=== PATIENT | male | born 1940 | race Caucasian/White ===

== ENCOUNTER 2016-07-12 21:45 | Emergency (ER) | payer MEDICARE ==
--- NOTE | 2016-07-12 22:27 | UC ---
Respiratory Complaint HPI - HPI Summary HPI Summary: 5 days of fever and cough >102 this evening. Saw PCP yesterday dx as "viral illness" tonight when fever returned spoke to the on provider who advised patient to get a cxr. denies n/v/d - History of Current Complaint Chief Complaint: UCRespiratory Stated Complaint: COUGH, AND FEVER Time Seen by Provider: 07/12/16 22:26 Hx Obtained From: Patient Onset/Duration: Sudden Onset, Lasting Days - 5, Still Present Timing: Constant Severity Initially: Moderate Severity Currently: Moderate Pain Intensity: 6 Pain Scale Used: 0-10 Numeric - 6 Character: Cough: Productive Aggravating Factors: Deep Breaths Alleviating Factors: Nothing Associated Signs And Symptoms: Positive: Fever, Chills, URI, Nasal Congestion - Allergies/Home Medications Allergies/Adverse Reactions: Allergies Allergy/AdvReac Type Severity Reaction Status Date / Time Sulfa Drugs Allergy Intermediate Rash Verified 07/12/16 22:03 Quinapril [From Accupril] Allergy Unknown Verified 07/12/16 22:03 Reaction Details Temazepam Allergy Unknown Verified 07/12/16 22:03 Reaction Details Atorvastatin [From Lipitor] AdvReac Severe Creatinine Verified 07/12/16 22:03 Levels Abnormal Home Medications: Home Medications Aspirin TAB* [Aspirin 325 MG TAB*] 650 mg PO PRN 07/12/16 [History] PMH/Surg Hx/FS Hx/Imm Hx Previously Healthy: No - CLL Endocrine History Of: Reports: Diabetes - CONTROL WITH MEDICATIONS, TYPE 2, Thyroid Disease - HYPOTHYROID Cardiovascular History Of: Reports: Hypertension - CONTROL WITH MEDS Denies: Congestive Heart Failure Respiratory History Of: Reports: Asthma - new DX summer 2012, UNSURE IF IT IS TRUE ASTHMA, Bronchitis, Pneumonia GI/ History Of: Reports: Kidney Stones - HX OF, Renal Disease - STONES 5 YEARS AGO Neurological History Of: Reports: Migraine - "mini migraine" - Surgical History Surgical History: Yes Surgery Procedure, Year, and Place: BILATERA EYE SURGERY TO REPAIR MACULAR TEAR, . BILATELRAL CATARACT EXTRACTION WITH IOL IMPLANT. 02/2006 CYSTOSCOPY, EXCISION AND FULGERATION OF BLADDER LESION WITH RIGHT URETERAL STENT PLACEMENT, [facility]. 03/2006 ESWL RIGHT WITH RIGHT STENT REMOVAL, [facility]. 06/2006 RIGHT RENAL CALCULI ESWL, [facility]. 08/2006 ESWL LEFT RENAL CALCULI, [facility] - Family History Family History: No reported cardiovascular issues in family lineage - Social History Occupation: Retired Lives: With Family Alcohol Use: Daily Alcohol Amount: 1/DAY Substance Use Type: None Smoking Status (MU): Former Smoker Type: Cigarettes Amount Used/How Often: 2 PPD FOR ABOUT 20 YEARS Have You Smoked in the Last Year: No When Did the Patient Quit Smoking/Using Tobacco: 1970 - Immunization History Most Recent Influenza Vaccination: 01/2013 Most Recent Tetanus Shot: 2003 Most Recent Pneumonia Vaccination: 2009 Review of Systems Constitutional: Fever, Chills, Fatigue Skin: Negative Eyes: Negative ENT: Nasal Discharge Respiratory: Cough Cardiovascular: Negative Gastrointestinal: Negative Genitourinary: Negative Motor: Negative Neurovascular: Negative Musculoskeletal: Arthralgia, Myalgia Neurological: Negative Psychological: Negative All Other Systems Reviewed And Are Negative: Yes Physical Exam Triage Information Reviewed: Yes Appearance: No Pain Distress, Well-Nourished, Ill-Appearing - mild Vital Signs: Initial Vital Signs Temp 96.3 F 07/12/16 21:56 Pulse 95 07/12/16 21:56 Resp 20 07/12/16 21:56 BP 133/71 07/12/16 21:56 Pulse Ox 93 07/12/16 21:56 Vital Signs Reviewed: Yes Eye Exam: Normal ENT Exam: Normal ENT: Positive: Normal ENT inspection, Hearing grossly normal, Pharynx normal, Nasal congestion, TMs normal. Negative: Nasal drainage, Tonsillar swelling, Tonsillar exudate, Trismus, Muffled/hoarse voice Dental Exam: Normal Neck exam: Normal Neck: Positive: Supple, Nontender, No Lymphadenopathy Respiratory Exam: Normal Respiratory: Positive: Chest non-tender, Lungs clear, Normal breath sounds, No respiratory distress. Negative: Respiratory distress, Decreased breath sounds Cardiovascular Exam: Normal Cardiovascular: Positive: RRR, No Murmur, Pulses Normal, Brisk Capillary Refill Musculoskeletal Exam: Normal Musculoskeletal: Positive: Strength Intact, ROM Intact, No Edema Neurological Exam: Normal Neurological: Positive: Alert, Muscle Tone Normal Psychological Exam: Normal Psychological: Positive: Normal Response To Family Skin Exam: Normal UC Diagnostic Evaluation - Laboratory O2 Sat by Pulse Oximetry: 93 Respiratory Course/Dx - Course Course Of Treatment: transfer to [facility] [place] - Differential Dx/Diagnosis Differential Diagnosis/HQI/PQRI: Bronchitis, Influenza, Lower Resp Infection Provider Diagnoses: febrile illness - Physician Notification/Consults Discussed Patient Care With: Dr. Szymanski Time Discussed With Above Provider: 22:30 Instructed by Provider To: Transfer Discharge - Discharge Plan Condition: Fair Disposition: AGAINST MEDICAL ADVICE Referrals: Porsha Hawkins MD [Primary Care Provider] -
[2016-07-12 22:39] VITALS: BP 124/65
== END 2016-07-12 22:35 | disposition left against medical advice (07) ==
LOC: UCEAST 21:45
DX: R50.9 Fever, unspecified (principal); E11.9 Type 2 diabetes mellitus without complications; E03.9 Hypothyroidism, unspecified; I10 Essential (primary) hypertension; G43.909 Migraine, unspecified, not intractable, without status migrainosus; J45.909 Unspecified asthma, uncomplicated; Z87.442 Personal history of urinary calculi; Z88.2 Allergy status to sulfonamides; Z87.891 Personal history of nicotine dependence
CPT/HCPCS: 99212; G0463

== ENCOUNTER 2016-07-12 22:55 | Observation (INO) | payer MEDICARE ==
[2016-07-13 01:40] LABS: Hematocrit 40 % (42-52); Hemoglobin 13.7 g/dl (14.0-18.0); Mean Corpuscular HGB Conc 34 g/dl (31-36); Mean Corpuscular Hemoglobin 33 pg (27-31); Mean Corpuscular Volume 98 fL (80-94); Mean Platelet Volume 9 um3 (7.4-10.4); Red Blood Count 4.13 10^6/ul (4.0-5.4); Red Cell Distribution Width 13 % (10.5-15); White Blood Count 9.5 10^3/ul (3.5-10.8)
[2016-07-13 01:51] LABS: BUN/Creatinine Ratio 15.5 (8-20); Calcium 9.1 mg/dL (8.6-10.3); EGFR Non-African American 75.5 (>60); Globulin 2.6 g/dL (2-4); Potassium 3.5 mmol/L (3.5-5.0); Total Bilirubin 1.2 mg/dL (0.2-1.0); Total Protein 6.6 g/dL (6.4-8.9)
[2016-07-13 01:54] LABS: Troponin I 0.01 ng/mL (<0.04)
[2016-07-13 02:45] LABS: Urine Bilirubin Negative (Negative); Urine Glucose Negative (Negative); Urine Nitrite Negative (Negative)
[2016-07-13] MEDS ORDERED: cefTRIAXone(*) 1 GM in NS 0.9% 50 ML* 50 ML IVPB ONE (03:40)
[2016-07-13] MEDS ORDERED: Albuterol/Ipratropium NEB.SOL* Albuterol 2.5 MG/Ipratropium 0.5 MG 3 ML INH ONE (03:40)
[2016-07-13] MEDS ORDERED: Azithromycin IV(*) 500 MG in NS 0.9% 250 ML* 250 ML IVPB ONE (03:40)
[2016-07-13] MEDS ORDERED: Albuterol HFA INHALER* 8 gm MDI INH PRN (04:44)
[2016-07-13] MEDS ORDERED: Dextrose 50% Syringe 50 ML* 25 GM/50 ML SYRINGE IV PUSH PRN (04:47)
[2016-07-13] MEDS: Levothyroxine TAB* 125 MCG TAB PO SCH (06:20)
[2016-07-13] MEDS: Heparin VIAL(*) 5000 UNITS/ML VIAL (FIVE THOUSAND) SUBCUT SCH ×3 (06:20→20:57)
--- NOTE | 2016-07-13 07:28 | RAD ---
INDICATION: Cough. COMPARISON: Comparison is made with prior chest x-ray study from July 04, 2014. TECHNIQUE: A portable view of the chest was obtained. FINDINGS: Cardiac and mediastinal contours appear to be within normal limits. There is a small infiltrate present at the medial right lung base. No pleural effusion is seen. IMPRESSION: SMALL RIGHT BASILAR INFILTRATE.
[2016-07-13] MEDS ORDERED: Fluticasone NASAL SPRAY 50MCG* 16 gm SPRAY BTL BOTH NARES SCH ×2 (09:00→21:00)
[2016-07-13] MEDS ORDERED: RANITIDINE HCL PO SCH (09:00)
[2016-07-13] MEDS: Insulin LISPRO* 1 UNITS UNIT SUBCUT SCH ×4 (10:02→20:04)
[2016-07-13] MEDS: Vitamin THERAPEUTIC TAB PO SCH (10:04)
[2016-07-13] MEDS: ZINC GLUCONATE 50 MG PO SCH (10:32)
[2016-07-13] MEDS: FOLIC ACID 800 MCG PO SCH (10:33)
[2016-07-13] MEDS: Allopurinol TAB* 300 MG PO SCH (10:37)
--- NOTE | 2016-07-13 12:05 | PN ---
Subjective Date of Service: 07/13/16 Interval History: Feels much better--less cough, less sputum, no more chills/sweats. No new c/o. Objective Active Medications: Albuterol (Ventolin Hfa Inhaler*) 2 puff INH Q4H PRN PRN Reason: SOB/WHEEZING Allopurinol (Zyloprim Tab*) 300 mg PO QAM [facility] Last Admin: 07/13/16 10:37 Dose: 300 mg Benzonatate (Tessalon Cap*) 200 mg PO TID PRN PRN Reason: COUGH Cetirizine HCl (Zyrtec*) 10 mg PO QPM PRN PRN Reason: ALLERGY SYMPTOMS Dextrose (D50w Syringe 50 Ml*) 12.5 gm IV PUSH .FOR FS < 60 - SS PRN PRN Reason: FS < 60 Fluticasone Propionate (Flonase Nasal [place] 50mcg*) 2 spray BOTH NARES DAILY [facility] Last Admin: 07/13/16 11:16 Dose: Not Given Heparin Sodium (Porcine) (Heparin Vial(*)) 5,000 units SUBCUT Q8HR [facility] Last Admin: 07/13/16 06:20 Dose: 5,000 units Ceftriaxone Sodium 1,000 mg/ (Sodium Chloride) 50 mls @ 200 mls/hr IVPB Q24H [facility] Azithromycin 500 mg/ Sodium (Chloride) 250 mls @ 250 mls/hr IVPB Q24H [facility] Insulin Glargine (Lantus(*)) 25 units SUBCUT BEDTIME [facility] Insulin Human Lispro (Humalog*) 0 units SUBCUT ACHS [facility] PRN Reason: Protocol Last Admin: 07/13/16 11:49 Dose: Not Given Levothyroxine Sodium (Synthroid Tab*) 125 mcg PO DAILY@0600 [facility] Last Admin: 07/13/16 06:20 Dose: 125 mcg Multivitamins ([facility]ran Tab*) [facility] [place] Last Admin: 07/13/16 10:04 Dose: 1 tab Folic Acid [Folic (Acid] 800 Mcg) 800 mcg PO [facility] Last Admin: 07/13/16 10:33 Dose: Not Given Non-Formulary Medication (Ranitidine Hcl) 10 mg PO BID [facility] Last Admin: 07/13/16 10:33 Dose: Not Given Zinc Gluconate [Zinc (] 50 Mg) 50 mg PO [facility] Last Admin: 07/13/16 10:32 Dose: Not Given Pravastatin Sodium (Pravachol (Nf)) 80 mg PO BEDTIME [facility] Valsartan (Diovan Tab*) 80 mg PO BEDTIME [facility] Vital Signs 07/13/16 07/13/16 07/13/16 05:12 05:30 05:55 Temperature 101.3 F 98.7 F Pulse Rate 95 93 93 Respiratory 15 16 Rate Blood Pressure 119/55 120/60 (mmHg) O2 Sat by Pulse 91 94 Oximetry 07/13/16 08:20 Temperature 99.1 F Pulse Rate 86 Respiratory 16 Rate Blood Pressure 110/60 (mmHg) O2 Sat by Pulse 93 Oximetry Oxygen Devices in Use Now: None Appearance: Alert, partly up in bed. In good spirits. Looks comfortable. Eyes: No Scleral Icterus Ears/Nose/Mouth/Throat: Clear Oropharnyx, Mucous Membranes Moist Neck: NL Appearance and Movements; NL JVP, No Thyroid Enlargement, Masses Respiratory: Symmetrical Chest Expansion and Respiratory Effort, Clear to Auscultation, Clear to Percussion Extremities: No Edema, No Clubbing, Cyanosis, - Skin: No Rash or Ulcers, No Nodules or Sclerosis, - Neurological: Alert and Oriented x 3, NL Sensation Result Diagrams: 07/13/16 01:04 07/13/16 01:04 Additional Lab and Data: Lab Results 07/13/16 07/13/16 07/13/16 Range/Units 01:04 01:04 01:04 WBC 9.5 (3.5-10.8) 10^3/ul RBC 4.13 (4.0-5.4) 10^6/ul Hgb 13.7 L (14.0-18.0) g/dl Hct 40 L (42-52) % MCV 98 H (80-94) fL MCH 33 H (27-31) pg MCHC 34 (31-36) g/dl RDW 13 (10.5-15) % Plt Count 156 (150-450) 10^3/ul MPV 9 (7.4-10.4) um3 Neut % (Auto) 66.4 (38-83) % Lymph % (Auto) 20.8 L (25-47) % [place] % (Auto) 10.3 H (1-9) % Eos % (Auto) 2.3 (0-6) % Baso % (Auto) 0.2 (0-2) % Absolute Neuts (auto) 6.3 (1.5-7.7) 10^3/ul Absolute Lymphs (auto) 2.0 (1.0-4.8) 10^3/ul Absolute Monos (auto) 1.0 H (0-0.8) 10^3/ul Absolute Eos (auto) 0.2 (0-0.6) 10^3/ul Absolute Basos (auto) 0 (0-0.2) 10^3/ul Absolute Nucleated RBC 0 10^3/ul Nucleated RBC % 0 INR (Anticoag Therapy) 1.21 H (0.89-1.11) APTT 30.7 (26.0-36.3) seconds Sodium 134 (133-145) mmol/L Potassium 3.5 (3.5-5.0) mmol/L Chloride 102 (101-111) mmol/L Carbon Dioxide 25 (22-32) mmol/L Anion Gap 7 (2-11) mmol/L BUN 15 (6-24) mg/dL Creatinine 0.97 (0.67-1.17) mg/dL Est GFR ( Amer) 97.0 (>60) Est GFR (Non-Af Amer) 75.5 (>60) BUN/Creatinine Ratio 15.5 (8-20) Glucose 146 H (70-100) mg/dL Lactic Acid (0.5-2.0) mmol/L Calcium 9.1 (8.6-10.3) mg/dL Total Bilirubin 1.20 H (0.2-1.0) mg/dL AST 38 (13-39) U/L ALT 56 H (7-52) U/L Alkaline Phosphatase 80 (34-104) U/L Troponin I 0.01 (<0.04) ng/mL Total Protein 6.6 (6.4-8.9) g/dL Albumin 4.0 (3.2-5.2) g/dL Globulin 2.6 (2-4) g/dL Albumin/Globulin Ratio 1.5 (1-3) Urine Color Urine Appearance Urine pH (5-9) Ur Specific [place] (1.010-1.030) Urine Protein (Negative) Urine Ketones (Negative) Urine Blood (Negative) Urine Nitrate (Negative) Urine Bilirubin (Negative) Urine Urobilinogen (Negative) Ur Leukocyte Esterase (Negative) Urine Glucose (Negative) 07/13/16 07/13/16 Range/Units 01:04 02:15 WBC (3.5-10.8) 10^3/ul RBC (4.0-5.4) 10^6/ul Hgb (14.0-18.0) g/dl Hct (42-52) % MCV (80-94) fL MCH (27-31) pg MCHC (31-36) g/dl RDW (10.5-15) % Plt Count (150-450) 10^3/ul MPV (7.4-10.4) um3 Neut % (Auto) (38-83) % Lymph % (Auto) (25-47) % [place] % (Auto) (1-9) % Eos % (Auto) (0-6) % Baso % (Auto) (0-2) % Absolute Neuts (auto) (1.5-7.7) 10^3/ul Absolute Lymphs (auto) (1.0-4.8) 10^3/ul Absolute Monos (auto) (0-0.8) 10^3/ul Absolute Eos (auto) (0-0.6) 10^3/ul Absolute Basos (auto) (0-0.2) 10^3/ul Absolute Nucleated RBC 10^3/ul Nucleated RBC % INR (Anticoag Therapy) (0.89-1.11) APTT (26.0-36.3) seconds Sodium (133-145) mmol/L Potassium (3.5-5.0) mmol/L Chloride (101-111) mmol/L Carbon Dioxide (22-32) mmol/L Anion Gap (2-11) mmol/L BUN (6-24) mg/dL Creatinine (0.67-1.17) mg/dL Est GFR ( Amer) (>60) Est GFR (Non-Af Amer) (>60) BUN/Creatinine Ratio (8-20) Glucose (70-100) mg/dL Lactic Acid 0.7 (0.5-2.0) mmol/L Calcium (8.6-10.3) mg/dL Total Bilirubin (0.2-1.0) mg/dL AST (13-39) U/L ALT (7-52) U/L Alkaline Phosphatase (34-104) U/L Troponin I (<0.04) ng/mL Total Protein (6.4-8.9) g/dL Albumin (3.2-5.2) g/dL Globulin (2-4) g/dL Albumin/Globulin Ratio (1-3) Urine Color Yellow Urine Appearance Clear Urine pH 6.0 (5-9) Ur Specific [place] 1.005 L (1.010-1.030) Urine Protein Negative (Negative) Urine Ketones Negative (Negative) Urine Blood Negative (Negative) Urine Nitrate Negative (Negative) Urine Bilirubin Negative (Negative) Urine Urobilinogen Negative (Negative) Ur Leukocyte Esterase Negative (Negative) Urine Glucose Negative (Negative) Assess/Plan/Problems-Billing Assessment: - Patient Problems (1) Pneumonia Current Visit: Yes Status: Acute Code(s): J18.9 - PNEUMONIA, UNSPECIFIED ORGANISM SNOMED Code(s): 645526304 Comment: Apperars to be responding to azitthromycin. Consider d/c home 07/14. (2) CLL (chronic lymphocytic leukemia) Current Visit: Yes Status: Acute Code(s): C91.10 - CHRONIC LYMPHOCYTIC LEUK OF B-CELL TYPE NOT ACHIEVE REMIS SNOMED Code(s): 89682128 Comment: Had chemo 5 yrs ago, regular fup with Dr. Mcclelland. CBC OK. (3) HTN (hypertension) Current Visit: Yes Status: Acute Code(s): I10 - ESSENTIAL (PRIMARY) HYPERTENSION SNOMED Code(s): 90161946 Comment: Reduce valsartan to 40 mg hs. (4) Gout Current Visit: Yes Status: Acute Code(s): M10.9 - GOUT, UNSPECIFIED SNOMED Code(s): 80205463 Comment: Continue allopurinol. (5) Hypothyroid Current Visit: Yes Status: Acute Code(s): E03.9 - HYPOTHYROIDISM, UNSPECIFIED SNOMED Code(s): 01495656 Comment: TSH addon requested. (6) Diabetes Current Visit: Yes Status: Acute Code(s): E11.9 - TYPE 2 DIABETES MELLITUS WITHOUT COMPLICATIONS SNOMED Code(s): 79365271 Comment: Resume metformin. No IV dye given or planned.
[2016-07-13 13:01] LABS: TSH (Thyroid Stimulating Horm) 0.52 mcIU/mL (0.34-5.60)
[2016-07-13] MEDS: metFORMIN* 500 MG TAB PO SCH (13:29)
[2016-07-13] MEDS: Benzonatate CAP* 100 MG PO PRN ×2 (17:16→20:08)
--- NOTE | 2016-07-13 17:35 | HP ---
HISTORY AND PHYSICAL: DATE OF ADMISSION: CHIEF COMPLAINT: Fever. HISTORY OF PRESENT ILLNESS: The patient is a 75-year-old gentleman presents to [facility] with a chief complaint that he was running a high temperature today. He felt febrile, took his temperature and it was 102.3. He called Dr. Hawkins's office and Dr. Snyder told him to go to urgent care. Before he got there, they were closed and so he came to this hospital. He has had a cough productive of thick phlegm all week long. In fact, he went to Dr. Hawkins and saw her yesterday but she did not think much was going on as his lungs sounded clear to her. He did take aspirin today at 8 o'clock, which helped his fever subside, which made him feel better. He has also been taking Claritin during the day and Tylenol PM to sleep at night. In the ED, the patient was afebrile but his chest x-ray was consistent with possible bilateral pneumonia. He also apparently desaturated on ambulation. PAST MEDICAL HISTORY: Significant for CLL for which the white count is within normal limits at this time, status post ESWL for bilateral renal calculi in the past, hypertension, hypothyroidism, obstructive sleep apnea on CPAP, history of splenomegaly, history of asthma, diabetes mellitus. CURRENT MEDICATIONS: At home, 1. Lantus insulin 25 units subcu at bedtime. 2. Albuterol 2 puffs every 4 hours as needed. 3. Zinc 50 mg in the morning. 4. Ranitidine 10 mg twice day. 5. Pravastatin 80 mg at bedtime. 6. Folic acid 800 mcg in the morning. 7. Valsartan 80 mg at bedtime. 8. Flonase nasal spray 2 sprays inhaled daily. 9. Metformin ER 500 mg in the morning. 10. Levothyroxine 125 mcg daily. 11. Loratadine 10 mg daily. 12. Multivitamin 1 tablet daily. 13. Allopurinol 300 mg daily. 14. Aspirin 650 mg as needed. ALLERGIES: He has allergy/adverse reactions to SULFA DRUGS, QUINAPRIL, TEMAZEPAM, and ATORVASTATIN. FAMILY HISTORY: Reviewed and noncontributory. SOCIAL HISTORY: Quit tobacco 40 years ago. Glass of wine at night. No recreational drug use. He is a retired business area manager. He is a . He has significant other and he has 2 children, one of them is his daughter Jennifer who is his healthcare proxy. REVIEW OF SYSTEMS: A 14-point review of systems was completed with the patient. All pertinent positives and negatives are in the history of present illness. PHYSICAL EXAMINATION VITAL SIGNS: Temperature 96.3, heart rate 85 beats per minute, respiratory rate 18 breaths per minute, pulse ox 96%, blood pressure 120/69. HEENT: Normocephalic, atraumatic. Pupils are equal, round, and reactive to light. Moist mucous membranes. NECK: Supple. No JVD, bruits, palpable thyroid or lymphadenopathy. CHEST: Clear to auscultation and percussion bilaterally. CARDIOVASCULAR: S1, S2 appreciated. ABDOMEN: Positive bowel sounds in all 4 quadrants. Soft, nontender, nondistended. EXTREMITIES: No cyanosis, clubbing or edema. +2 pulses bilaterally. NEURO: Alert and oriented x3. Moves all extremities. SKIN: No rashes or abnormalities. LABORATORY AND DIAGNOSTIC DATA: White count 9.5, hemoglobin 13.7, hematocrit 40, platelets 156. Neutrophils are 66.4, monos 10.3, eosinophils 20.8. INR 1.21. Sodium 134, potassium 3.5, chloride 102, CO2 25, BUN 15, creatinine 0.97, glucose 146. Urinalysis is unremarkable. EKG shows normal sinus rhythm at 82 beats per minute, left axis deviation, left anterior hemiblock. No acute ST or T-wave changes. Chest x-ray shows preliminary findings of bilateral pneumonia, at least right middle and right lower lobe. ASSESSMENT AND PLAN: 1. Right lower lobe possibly bilateral pneumonia. Place the patient on Rocephin 1 g IV daily and Zithromax 500 mg IV daily. Check sputum C and S, urine for legionella and pneumococcal antigen. Tescamilaon Diana p.r.n. for cough. I anticipate the patient should improve rather quickly and being able to be discharged home soon. 2. Chronic lymphoid leukemia. Currently quiescent with normal white count. 3. Diabetes mellitus, stable. Continue his Lantus insulin, fingersticks with sliding scale insulin. 4. Hypothyroidism, stable. Continue Synthroid. 5. Hypertension, adequate control. Continue current regimen. 6. FEN. Consistent carb diet. 7. DVT prophylaxis. Heparin subcutaneously. 8. Finally, the patient is a full code. TIME SPENT: Over 75 minutes was spent on this H and P, more than 40 minutes of which was spent in direct [id number] contact with the patient in evaluation, physical exam, counseling, and coordination of care. CC: Dr. Hawkins* [id number]/CPS #: [id number]
[2016-07-13] MEDS ORDERED: Cetirizine* 10 MG TAB PO PRN (18:00)
[2016-07-13] MEDS ORDERED: Acetaminophen TAB* 325 MG PO PRN (18:26)
[2016-07-13] MEDS ORDERED: Insulin GLARGINE(*) 1 UNITS UNIT SUBCUT SCH (21:00)
[2016-07-13] MEDS ORDERED: Valsartan TAB* 40 MG PO SCH (21:00)
[2016-07-13] MEDS ORDERED: CMCS: Pravastatin (NF) 20 MG TAB PO SCH (21:00)
[2016-07-13] MEDS ORDERED: Valsartan TAB* 80 MG PO SCH (21:00)
[2016-07-14] MEDS ORDERED: cefTRIAXone VIAL(*) 1,000 MG in NS 0.9% 50 ML* 50 ML IVPB SCH (04:30)
[2016-07-14] MEDS ORDERED: Azithromycin IV(*) 500 MG in NS 0.9% 250 ML* 250 ML IVPB SCH (05:00)
[2016-07-14] MEDS: Levothyroxine TAB* 125 MCG TAB PO SCH (05:36)
[2016-07-14] MEDS: Heparin VIAL(*) 5000 UNITS/ML VIAL (FIVE THOUSAND) SUBCUT SCH (05:36)
[2016-07-14] MEDS: Insulin LISPRO* 1 UNITS UNIT SUBCUT SCH ×2 (08:33→12:26)
[2016-07-14] MEDS: Vitamin THERAPEUTIC TAB PO SCH (09:08)
[2016-07-14] MEDS: metFORMIN* 500 MG TAB PO SCH (09:08)
[2016-07-14] MEDS: Benzonatate CAP* 100 MG PO PRN (09:09)
[2016-07-14] MEDS: Allopurinol TAB* 300 MG PO SCH (09:09)
[2016-07-14] MEDS: ZINC GLUCONATE 50 MG PO SCH (09:10)
[2016-07-14] MEDS: FOLIC ACID 800 MCG PO SCH (09:10)
[2016-07-14 11:27] VITALS: BP 106/60
--- NOTE | 2016-07-14 11:41 | DCNOTE ---
Subjective Date of Service: 07/14/16 Interval History: Feels much better. He had a chill and a sweat yesterday when he was febrile. Small amt sputum production. Very anxious to go home. Objective Active Medications: Acetaminophen (Tylenol Tab*) 650 mg PO Q4H PRN PRN Reason: FEVER/PAIN Last Admin: 07/13/16 18:32 Dose: 650 mg Albuterol (Ventolin Hfa Inhaler*) 2 puff INH Q4H PRN PRN Reason: SOB/WHEEZING Allopurinol (Zyloprim Tab*) 300 mg PO QAM [facility] Last Admin: 07/14/16 09:09 Dose: 300 mg Benzonatate (Tessalon Cap*) 200 mg PO TID PRN PRN Reason: COUGH Last Admin: 07/14/16 09:09 Dose: 200 mg Cetirizine HCl (Zyrtec*) 10 mg PO QPM PRN PRN Reason: ALLERGY SYMPTOMS Dextrose (D50w Syringe 50 Ml*) 12.5 gm IV PUSH .FOR FS < 60 - SS PRN PRN Reason: FS < 60 Fluticasone Propionate (Flonase Nasal [place] 50mcg*) 2 spray BOTH NARES BEDTIME [facility] Last Admin: 07/13/16 20:04 Dose: 2 spray Guaifenesin (Robitussin*) 10 ml PO QID [facility] Heparin Sodium (Porcine) (Heparin Vial(*)) 5,000 units SUBCUT Q8HR [facility] Last Admin: 07/14/16 05:36 Dose: 5,000 units Ceftriaxone Sodium 1,000 mg/ (Sodium Chloride) 50 mls @ 200 mls/hr IVPB Q24H [facility] Last Admin: 07/14/16 04:03 Dose: 200 mls/hr Azithromycin 500 mg/ Sodium (Chloride) 250 mls @ 250 mls/hr IVPB Q24H [facility] Last Admin: 07/14/16 04:39 Dose: 250 mls/hr Insulin Glargine (Lantus(*)) 25 units SUBCUT BEDTIME [facility] Last Admin: 07/13/16 20:03 Dose: 25 unit Insulin Human Lispro (Humalog*) 0 units SUBCUT ACHS [facility] PRN Reason: Protocol Last Admin: 07/14/16 08:33 Dose: Not Given Levothyroxine Sodium (Synthroid Tab*) 125 mcg PO DAILY@0600 [facility] Last Admin: 07/14/16 05:36 Dose: 125 mcg Metformin HCl (Glucophage*) 500 mg PO DAILY [facility] Last Admin: 07/14/16 09:08 Dose: 500 mg Multivitamins (Theragran Tab*) 1 tab PO [facility] Last Admin: 07/14/16 09:08 Dose: 1 tab Folic Acid [Folic (Acid] 800 Mcg) 800 mcg PO [facility] Last Admin: 07/14/16 09:10 Dose: Not Given Zinc Gluconate [Zinc (] 50 Mg) 50 mg PO [facility] Last Admin: 07/14/16 09:10 Dose: Not Given Pravastatin Sodium (Pravachol (Nf)) 80 mg PO BEDTIME [facility] Last Admin: 07/13/16 20:04 Dose: 80 mg Vital Signs 07/13/16 07/13/16 07/13/16 16:06 18:35 19:44 Temperature 101.3 F 99.7 F 98.2 F Pulse Rate 89 88 78 Respiratory 18 20 Rate Blood Pressure 128/55 99/46 (mmHg) O2 Sat by Pulse 95 95 93 Oximetry 07/13/16 07/13/16 07/13/16 19:59 20:00 23:36 Temperature 98.4 F Pulse Rate 75 Respiratory 20 16 Rate Blood Pressure 108/53 (mmHg) O2 Sat by Pulse 93 99 Oximetry 07/14/16 07/14/16 07/14/16 00:00 03:43 07:21 Temperature 98.1 F 98.7 F Pulse Rate 84 76 Respiratory 16 17 Rate Blood Pressure 122/59 89/57 (mmHg) O2 Sat by Pulse 99 93 93 Oximetry 07/14/16 07/14/16 07/14/16 07:30 08:00 08:25 Temperature Pulse Rate 71 Respiratory 17 Rate Blood Pressure 94/48 101/60 (mmHg) O2 Sat by Pulse 93 Oximetry 07/14/16 11:23 Temperature Pulse Rate 72 Respiratory Rate Blood Pressure 106/60 (mmHg) O2 Sat by Pulse 95 Oximetry Oxygen Devices in Use Now: None Appearance: Alert, partly up in bed. In good spirits. Looks well. No cough during my visit. Eyes: No Scleral Icterus Ears/Nose/Mouth/Throat: Clear Oropharnyx, Mucous Membranes Moist Neck: NL Appearance and Movements; NL JVP, No Thyroid Enlargement, Masses Respiratory: Symmetrical Chest Expansion and Respiratory Effort, Clear to Auscultation, Clear to Percussion Cardiovascular: NL Sounds; No Murmurs; No JVD, RRR, No Edema, - Extremities: No Edema, No Clubbing, Cyanosis, - Skin: No Rash or Ulcers, No Nodules or Sclerosis, - Neurological: Alert and Oriented x 3, NL Sensation Result Diagrams: 07/13/16 01:04 07/13/16 01:04 Additional Lab and Data: Lab Results 07/13/16 07/13/16 07/13/16 Range/Units 01:04 01:04 01:04 WBC 9.5 (3.5-10.8) 10^3/ul RBC 4.13 (4.0-5.4) 10^6/ul Hgb 13.7 L (14.0-18.0) g/dl Hct 40 L (42-52) % MCV 98 H (80-94) fL MCH 33 H (27-31) pg MCHC 34 (31-36) g/dl RDW 13 (10.5-15) % Plt Count 156 (150-450) 10^3/ul MPV 9 (7.4-10.4) um3 Neut % (Auto) 66.4 (38-83) % Lymph % (Auto) 20.8 L (25-47) % [place] % (Auto) 10.3 H (1-9) % Eos % (Auto) 2.3 (0-6) % Baso % (Auto) 0.2 (0-2) % Absolute Neuts (auto) 6.3 (1.5-7.7) 10^3/ul Absolute Lymphs (auto) 2.0 (1.0-4.8) 10^3/ul Absolute Monos (auto) 1.0 H (0-0.8) 10^3/ul Absolute Eos (auto) 0.2 (0-0.6) 10^3/ul Absolute Basos (auto) 0 (0-0.2) 10^3/ul Absolute Nucleated RBC 0 10^3/ul Nucleated RBC % 0 INR (Anticoag Therapy) 1.21 H (0.89-1.11) APTT 30.7 (26.0-36.3) seconds Sodium 134 (133-145) mmol/L Potassium 3.5 (3.5-5.0) mmol/L Chloride 102 (101-111) mmol/L Carbon Dioxide 25 (22-32) mmol/L Anion Gap 7 (2-11) mmol/L BUN 15 (6-24) mg/dL Creatinine 0.97 (0.67-1.17) mg/dL Est GFR ( Amer) 97.0 (>60) Est GFR (Non-Af Amer) 75.5 (>60) BUN/Creatinine Ratio 15.5 (8-20) Glucose 146 H (70-100) mg/dL Lactic Acid (0.5-2.0) mmol/L Calcium 9.1 (8.6-10.3) mg/dL Total Bilirubin 1.20 H (0.2-1.0) mg/dL AST 38 (13-39) U/L ALT 56 H (7-52) U/L Alkaline Phosphatase 80 (34-104) U/L Troponin I 0.01 (<0.04) ng/mL Total Protein 6.6 (6.4-8.9) g/dL Albumin 4.0 (3.2-5.2) g/dL Globulin 2.6 (2-4) g/dL Albumin/Globulin Ratio 1.5 (1-3) Urine Color Urine Appearance Urine pH (5-9) Ur Specific [place] (1.010-1.030) Urine Protein (Negative) Urine Ketones (Negative) Urine Blood (Negative) Urine Nitrate (Negative) Urine Bilirubin (Negative) Urine Urobilinogen (Negative) Ur Leukocyte Esterase (Negative) Urine Glucose (Negative) 07/13/16 07/13/16 Range/Units 01:04 02:15 WBC (3.5-10.8) 10^3/ul RBC (4.0-5.4) 10^6/ul Hgb (14.0-18.0) g/dl Hct (42-52) % MCV (80-94) fL MCH (27-31) pg MCHC (31-36) g/dl RDW (10.5-15) % Plt Count (150-450) 10^3/ul MPV (7.4-10.4) um3 Neut % (Auto) (38-83) % Lymph % (Auto) (25-47) % [place] % (Auto) (1-9) % Eos % (Auto) (0-6) % Baso % (Auto) (0-2) % Absolute Neuts (auto) (1.5-7.7) 10^3/ul Absolute Lymphs (auto) (1.0-4.8) 10^3/ul Absolute Monos (auto) (0-0.8) 10^3/ul Absolute Eos (auto) (0-0.6) 10^3/ul Absolute Basos (auto) (0-0.2) 10^3/ul Absolute Nucleated RBC 10^3/ul Nucleated RBC % INR (Anticoag Therapy) (0.89-1.11) APTT (26.0-36.3) seconds Sodium (133-145) mmol/L Potassium (3.5-5.0) mmol/L Chloride (101-111) mmol/L Carbon Dioxide (22-32) mmol/L Anion Gap (2-11) mmol/L BUN (6-24) mg/dL Creatinine (0.67-1.17) mg/dL Est GFR ( Amer) (>60) Est GFR (Non-Af Amer) (>60) BUN/Creatinine Ratio (8-20) Glucose (70-100) mg/dL Lactic Acid 0.7 (0.5-2.0) mmol/L Calcium (8.6-10.3) mg/dL Total Bilirubin (0.2-1.0) mg/dL AST (13-39) U/L ALT (7-52) U/L Alkaline Phosphatase (34-104) U/L Troponin I (<0.04) ng/mL Total Protein (6.4-8.9) g/dL Albumin (3.2-5.2) g/dL Globulin (2-4) g/dL Albumin/Globulin Ratio (1-3) Urine Color Yellow Urine Appearance Clear Urine pH 6.0 (5-9) Ur Specific [place] 1.005 L (1.010-1.030) Urine Protein Negative (Negative) Urine Ketones Negative (Negative) Urine Blood Negative (Negative) Urine Nitrate Negative (Negative) Urine Bilirubin Negative (Negative) Urine Urobilinogen Negative (Negative) Ur Leukocyte Esterase Negative (Negative) Urine Glucose Negative (Negative) Microbiology and Other Data: Microbiology 04/01/17 08:13 Gram Stain - Final Sputum Expectorated Assess/Plan/Problems-Billing Assessment: - Patient Problems (1) Pneumonia Current Visit: Yes Status: Acute Code(s): J18.9 - PNEUMONIA, UNSPECIFIED ORGANISM SNOMED Code(s): 264759319 Comment: 4 days po azithromycin as outpt. Rx benzonatate. (2) CLL (chronic lymphocytic leukemia) Current Visit: Yes Status: Acute Code(s): C91.10 - CHRONIC LYMPHOCYTIC LEUK OF B-CELL TYPE NOT ACHIEVE REMIS SNOMED Code(s): 48207253 Comment: Had chemo 5 yrs ago, regular fup with Dr. Mcclelland. CBC OK. (3) HTN (hypertension) Current Visit: Yes Status: Acute Code(s): I10 - ESSENTIAL (PRIMARY) HYPERTENSION SNOMED Code(s): 28150172 Comment: D/C valsartan. (4) Gout Current Visit: Yes Status: Acute Code(s): M10.9 - GOUT, UNSPECIFIED SNOMED Code(s): 17437442 Comment: Continue allopurinol. (5) Hypothyroid Current Visit: Yes Status: Acute Code(s): E03.9 - HYPOTHYROIDISM, UNSPECIFIED SNOMED Code(s): 65132497 Comment: TSH addon wnl. (6) Diabetes Current Visit: Yes Status: Acute Code(s): E11.9 - TYPE 2 DIABETES MELLITUS WITHOUT COMPLICATIONS SNOMED Code(s): 15176343 Comment: Resume metformin. No IV dye given or planned. Status and Disposition: D/C now. Fup Shruthi Vargas.
--- NOTE | 2016-07-14 11:46 | PN ---
Progress Note - Progress Note Note: Time spent on discharge 45 minutes.
[2016-07-14] MEDS ORDERED: guaiFENesin LIQ* 100 MG/5 ML UDC PO SCH (13:00)
--- NOTE | 2016-07-15 08:24 | DS ---
DISCHARGE SUMMARY: DATE OF ADMISSION: 07/13/16 DATE OF DISCHARGE: 07/14/16 HOSPITAL COURSE: This 75-year-old man presented with a fever. His temperature was 102.3 at home. When he called his primary care doctor, he was told to go to urgent care. They were actually closed by the time he got there, it was in the middle of the night and he came to the emergency room. He has had a productive cough with thick sputum for about a week. Had seen Dr. Hawkins the day before admission and his lungs were clear. The rest of his history is detailed in the admission dictation. Chest x-ray in the emergency room showed a small right basilar infiltrate. I noticed white blood count was 9.5, which is normal, slightly higher than it has been running lately. He was given ceftriaxone and azithromycin. He will continue with cefuroxime and oral azithromycin at home. The patient felt much better. He had chills and sweats with a temperature of 101.3 the afternoon of the first hospital day; however, he continued to state he felt much better. He looked well. His lungs were clear. His cough was improved. I think the temperature will slowly resolve over the next few days. FINAL DIAGNOSES: 1. Pneumonia. 2. Chronic lymphocytic leukemia. 3. Hypertension. 4. Gout. 5. Hypothyroidism. 6. Diabetes. DISCHARGE MEDICATIONS: 1. Cefuroxime 500 mg b.i.d. for 6 days. 2. Azithromycin 250 mg daily for 4 days. 3. Guaifenesin liquid 10 mL q.i.d. 4. Allopurinol 300 mg daily. 5. Multivitamin 1 daily. 6. Valsartan has been discontinued. 7. Pravastatin 80 mg h.s. 8. Zinc gluconate 50 mg daily. 9. Levothyroxine 125 mcg daily. 10. Claritin 10 mg daily p.r.n. 11. Ranitidine 10 mg b.i.d. 12. Fluticasone nasal spray 2 sprays daily. 13. Metformin ER 500 mg in the morning. 14. Glargine insulin 25 mg h.s. 15. Folic acid 800 mcg daily. 16. Albuterol inhaler 2 puffs every 4 hours p.r.n. 17. Aspirin 650 mg p.r.n. 18. Benzonatate 200 mg t.i.d. p.r.n. CC: Dr. Hawkins; Dr. Mcclelland * [id number]/[facility] #: [id number] [facility]Arthur
--- NOTE | 2016-07-17 22:49 | ED ---
Madhav Shah Erika, scribed for Marky Szymanski MD on 07/13/16 at 0340 . Respiratory - HPI Summary HPI Summary: Patient is a 75-year-old male presenting to the ED with a CC of cough. Patient reports that he started coughing about 5 days ago, and is now producing a green phlegm. Associated symptoms include intermittent fevers for 5 days with a T max of 102.3 this evening. Patient also reports fatigue and generalized myalgias a few days ago, but states they have resolved. Today, pt had diarrhea as well. Pt also complains of mild SOB with exertion. He denies vomiting. Patient uses a BiPAP at night. He reports he had a flu shot this year. Patient has a Hx CLL, and does not have active treatment but is monitored by Dr. Mcclelland. Hx diabetes. Denies Hx lung disease. - History of Current Complaint Chief Complaint: EDUpperRespComplaint Stated Complaint: XRAY/SENT FROM [facility]V [facility] Time Seen by Provider: 07/13/16 00:23 Hx Obtained From: Patient, Family/Golf Ball Cover Treater Onset/Duration: Gradual Onset, Lasting Days, Still Present Timing: Constant Initial Severity: Mild Current Severity: Moderate Pain Intensity: 0 Aggravating Factor(s): Exertion Associated Signs and Symptoms: Fever, SOB - Allergy/Home Medications Allergies/Adverse Reactions: Allergies Allergy/AdvReac Type Severity Reaction Status Date / Time Sulfa Drugs Allergy Intermediate Rash Verified 07/12/16 22:03 Quinapril [From Accupril] Allergy Unknown Verified 07/12/16 22:03 Reaction Details Temazepam Allergy Unknown Verified 07/12/16 22:03 Reaction Details Atorvastatin [From Lipitor] AdvReac Severe Creatinine Verified 07/12/16 22:03 Levels Abnormal PMH/Surg Hx/FS Hx/Imm Hx Endocrine/Hematology History: Reports: Hx Bone Marrow Disease - CLL WITH TX- UNDER CONTROL, Hx Diabetes - CONTROL WITH MEDICATIONS, TYPE 2, Hx Thyroid Disease - HYPOTHYROID, Other Endocrine/Hematological Disorders - Hemochromatosis Denies: Hx Systemic Lupus Erythematosus Cardiovascular History: Reports: Hx Hypercholesterolemia, Hx Hypertension - CONTROL WITH MEDS, Other Cardiovascular Problems/Disorders - CHOLESTEROL CONTROL WITH MEDS Denies: Hx Congestive Heart Failure Respiratory History: Reports: Hx Asthma - new DX summer 2012, UNSURE IF IT IS TRUE ASTHMA, Hx Pneumonia, Hx Seasonal Allergies - Unsure if seasonal, but yes to allergies, Hx Sleep Apnea GI History: Reports: Hx Gastroesophageal Reflux Disease - ACID REFLUX CONTROL WITH MEDS History: Reports: Hx Kidney Stones - HX OF, Hx Renal Disease - STONES 5 YEARS AGO, Other Problems/Disorders - hx lithotripsy Denies: Hx Dialysis Musculoskeletal History: Reports: Hx Gout Denies: Hx Rheumatoid Arthritis Sensory History: Reports: Hx Cataracts - HX OF, Hx Contacts or Glasses - READING GLASSES Denies: Hx Hearing Aid Opthamlomology History: Reports: Hx Cataracts - HX OF, Hx Contacts or Glasses - READING GLASSES Neurological History: Reports: Hx Migraine - "mini migraine", Other Neuro Impairments/Disorders - RIGHT CARPAL TUNNEL SYNDROME - Cancer History Cancer Type, Location and Year: CLL (TREATED) Hx Chemotherapy: Yes - 2013 - Surgical History Surgery Procedure, Year, and Place: BILATERA EYE SURGERY TO REPAIR MACULAR TEAR, . BILATELRAL CATARACT EXTRACTION WITH IOL IMPLANT. 02/2006 CYSTOSCOPY, EXCISION AND FULGERATION OF BLADDER LESION WITH RIGHT URETERAL STENT PLACEMENT, [facility] [place]. 03/2006 ESWL RIGHT WITH RIGHT STENT REMOVAL, [facility] [place]. 06/2006 RIGHT RENAL CALCULI ESWL, [facility] [place]. 08/2006 ESWL LEFT RENAL CALCULI, [facility] Hx Anesthesia Reactions: Yes - LITHO-UPSET STOMACH/LAST ONE NO PROBLEMS Infectious Disease History: No Infectious Disease History: Denies: Traveled Outside the [place] in Last 30 Days - Family History Family History: Denies FHx anesthesia reaction - Social History Alcohol Use: Daily Alcohol Amount: 1/DAY Substance Use Type: Reports: None Smoking Status (MU): Former Smoker Type: Cigarettes Amount Used/How Often: 2 PPD FOR ABOUT 20 YEARS Have You Smoked in the Last Year: No Review of Systems Positive: Fever, Fatigue. Negative: Chills Negative: Erythema Negative: Sore Throat Negative: Chest Pain Positive: Shortness Of Breath, Cough Positive: Diarrhea. Negative: Abdominal Pain, Vomiting, Nausea Negative: dysuria, hematuria Positive: Myalgia. Negative: Edema Negative: Rash Neurological: Other - No dizziness All Other Systems Reviewed And Are Negative: Yes Physical Exam - Summary Physical Exam Summary: Constitutional: Well-developed, Well-nourished, Alert. (-) Distressed Skin: Warm, Dry HENT: Normocephalic; Atraumatic Eyes: Conjunctiva normal Neck: Musculoskeletal ROM normal neck. (-) JVD, (-) Stridor, (-) Tracheal deviation Cardio: Rhythm regular, rate normal, Heart sounds normal; Intact distal pulses; The pedal pulses are 2+ and symmetric. Radial pulses are 2+ and symmetric. (-) Murmur Pulmonary/Chest wall: Effort normal. (-) Respiratory distress, (-) Wheezes, Rales in the right lower lung base Abd: Soft, (-) Tenderness, (-) Distension, (-) Guarding, (-) Rebound Musculoskeletal: (-) Edema Lymph: (-) Cervical adenopathy Neuro: Alert, Oriented x3 Psych: Mood and affect Normal Triage Information Reviewed: Yes Vital Signs On Initial Exam: Initial Vitals Temp Pulse Resp BP Pulse Ox 96.3 F 85 18 122/69 96 07/12/16 23:02 07/12/16 23:02 07/12/16 23:02 07/12/16 23:02 07/12/16 23:02 Vital Signs Reviewed: Yes Diagnostics - Vital Signs Vital Signs Temp Pulse Resp BP Pulse Ox 07/13/16 01:31 95 07/13/16 00:30 80 114/58 95 07/13/16 00:22 79 110/61 96 07/13/16 00:00 78 96 07/12/16 23:56 44 83 07/12/16 23:02 96.3 F 85 18 122/69 96 - Laboratory Lab Results: Lab Results 07/13/16 07/13/16 07/13/16 Range/Units 01:04 01:04 01:04 WBC 9.5 (3.5-10.8) 10^3/ul RBC 4.13 (4.0-5.4) 10^6/ul Hgb 13.7 L (14.0-18.0) g/dl Hct 40 L (42-52) % MCV 98 H (80-94) fL MCH 33 H (27-31) pg MCHC 34 (31-36) g/dl RDW 13 (10.5-15) % Plt Count 156 (150-450) 10^3/ul MPV 9 (7.4-10.4) um3 Neut % (Auto) 66.4 (38-83) % Lymph % (Auto) 20.8 L (25-47) % [place] % (Auto) 10.3 H (1-9) % Eos % (Auto) 2.3 (0-6) % Baso % (Auto) 0.2 (0-2) % Absolute Neuts (auto) 6.3 (1.5-7.7) 10^3/ul Absolute Lymphs (auto) 2.0 (1.0-4.8) 10^3/ul Absolute Monos (auto) 1.0 H (0-0.8) 10^3/ul Absolute Eos (auto) 0.2 (0-0.6) 10^3/ul Absolute Basos (auto) 0 (0-0.2) 10^3/ul Absolute Nucleated RBC 0 10^3/ul Nucleated RBC % 0 INR (Anticoag Therapy) 1.21 H (0.89-1.11) APTT 30.7 (26.0-36.3) seconds Sodium 134 (133-145) mmol/L Potassium 3.5 (3.5-5.0) mmol/L Chloride 102 (101-111) mmol/L Carbon Dioxide 25 (22-32) mmol/L Anion Gap 7 (2-11) mmol/L BUN 15 (6-24) mg/dL Creatinine 0.97 (0.67-1.17) mg/dL Est GFR ( Amer) 97.0 (>60) Est GFR (Non-Af Amer) 75.5 (>60) BUN/Creatinine Ratio 15.5 (8-20) Glucose 146 H (70-100) mg/dL Lactic Acid (0.5-2.0) mmol/L Calcium 9.1 (8.6-10.3) mg/dL Total Bilirubin 1.20 H (0.2-1.0) mg/dL AST 38 (13-39) U/L ALT 56 H (7-52) U/L Alkaline Phosphatase 80 (34-104) U/L Troponin I 0.01 (<0.04) ng/mL Total Protein 6.6 (6.4-8.9) g/dL Albumin 4.0 (3.2-5.2) g/dL Globulin 2.6 (2-4) g/dL Albumin/Globulin Ratio 1.5 (1-3) Urine Color Urine Appearance Urine pH (5-9) Ur Specific [place] (1.010-1.030) Urine Protein (Negative) Urine Ketones (Negative) Urine Blood (Negative) Urine Nitrate (Negative) Urine Bilirubin (Negative) Urine Urobilinogen (Negative) Ur Leukocyte Esterase (Negative) Urine Glucose (Negative) 07/13/16 07/13/16 Range/Units 01:04 02:15 WBC (3.5-10.8) 10^3/ul RBC (4.0-5.4) 10^6/ul Hgb (14.0-18.0) g/dl Hct (42-52) % MCV (80-94) fL MCH (27-31) pg MCHC (31-36) g/dl RDW (10.5-15) % Plt Count (150-450) 10^3/ul MPV (7.4-10.4) um3 Neut % (Auto) (38-83) % Lymph % (Auto) (25-47) % [place] % (Auto) (1-9) % Eos % (Auto) (0-6) % Baso % (Auto) (0-2) % Absolute Neuts (auto) (1.5-7.7) 10^3/ul Absolute Lymphs (auto) (1.0-4.8) 10^3/ul Absolute Monos (auto) (0-0.8) 10^3/ul Absolute Eos (auto) (0-0.6) 10^3/ul Absolute Basos (auto) (0-0.2) 10^3/ul Absolute Nucleated RBC 10^3/ul Nucleated RBC % INR (Anticoag Therapy) (0.89-1.11) APTT (26.0-36.3) seconds Sodium (133-145) mmol/L Potassium (3.5-5.0) mmol/L Chloride (101-111) mmol/L Carbon Dioxide (22-32) mmol/L Anion Gap (2-11) mmol/L BUN (6-24) mg/dL Creatinine (0.67-1.17) mg/dL Est GFR ( Amer) (>60) Est GFR (Non-Af Amer) (>60) BUN/Creatinine Ratio (8-20) Glucose (70-100) mg/dL Lactic Acid 0.7 (0.5-2.0) mmol/L Calcium (8.6-10.3) mg/dL Total Bilirubin (0.2-1.0) mg/dL AST (13-39) U/L ALT (7-52) U/L Alkaline Phosphatase (34-104) U/L Troponin I (<0.04) ng/mL Total Protein (6.4-8.9) g/dL Albumin (3.2-5.2) g/dL Globulin (2-4) g/dL Albumin/Globulin Ratio (1-3) Urine Color Yellow Urine Appearance Clear Urine pH 6.0 (5-9) Ur Specific [place] 1.005 L (1.010-1.030) Urine Protein Negative (Negative) Urine Ketones Negative (Negative) Urine Blood Negative (Negative) Urine Nitrate Negative (Negative) Urine Bilirubin Negative (Negative) Urine Urobilinogen Negative (Negative) Ur Leukocyte Esterase Negative (Negative) Urine Glucose Negative (Negative) Result Diagrams: 07/13/16 01:04 07/13/16 01:04 Lab Statement: Any lab studies that have been ordered have been reviewed, and results considered in the medical decision making process. - Radiology CXR Radiology Interpretation Completed By: Radiologist - Right lower lobe perihilar infiltrate - EKG 03:47 Cardiac Rate: NL - at 83 bpm EKG Rhythm: Sinus Rhythm EKG Interpretation: No STEMI Re-Evaluation - Re-Evaluation First Eval Re-Evaluation Time: 03:38 Comment: Discussed road test - patient was below 90 with ambulation. Patient agrees to admission Disposition - Diagnoses Provider Diagnoses: Pneumonia - Physician Notifications Discussed Care Of Patient With: Dr. Marquez (hospitalist) at 15:51 - agrees to admit Discharge - Discharge Plan Condition: Improved Disposition: ADMITTED TO [facility] documentation as recorded by the Madhav tam Erika accurately reflects the service I personally performed and the decisions made by , Marky Szymanski MD.
== END 2016-07-14 13:15 | disposition home or self-care (01) ==
LOC: ED 22:55 → MED 07-13 05:03 → INTOOBSV 07-13 05:03
PROVIDERS: ADMIT Internal Medicine; ATTEND Internal Medicine
DX: J18.9 Pneumonia, unspecified organism (principal); C91.10 Chronic lymphocytic leukemia of B-cell type not having achieved remission; I10 Essential (primary) hypertension; M10.9 Gout, unspecified; E03.9 Hypothyroidism, unspecified; E11.9 Type 2 diabetes mellitus without complications; Z79.84 Long term (current) use of oral hypoglycemic drugs; Z79.899 Other long term (current) drug therapy; Z88.2 Allergy status to sulfonamides; Z88.8 Allergy status to other drugs, medicaments and biological substances; Z87.891 Personal history of nicotine dependence; I51.7 Cardiomegaly
CPT/HCPCS: 36415; 71010; 80053; 81003; 83605; 84443; 84484; 85025; 85610; 85730; 87040; 87070; 87205; 87899; 93005; 96365; 96372; 96375; 99285; A9270-GY; G0378; J0456; J0696; J1644

== ENCOUNTER 2017-07-10 14:46 | Emergency (ER) | payer MEDICARE ==
--- OUTSIDE RECORDS SUMMARY | 2017-07-10 15:23 | XMS REPORT ---
:1940 External Reference #:[id number] Author Organization [facility] Address [address] [address] Phone [phone] Care Team Providers Name Role Phone Porsha Hawkins MD Primary Care Physician Unavailable Payers Type Date Identification Numbers Payment Provider Subscriber Commercial Policy Number: [id number] [employer]/Todays Options Sergio Rodriguez PayID: [id number] [address] [address] Attn: [place] [address] Problems Date Description Provider Status Onset: 02/19/2013 Obstructive sleep apnea syndrome Maico Andre M.D. Active Onset: 02/19/2013 Benign essential hypertension Maico Andre M.D. Active Onset: 05/19/2013 Chronic lymphoid leukemia, Tyler Bo M.D.,FACP Active disease Note: B cell in remission Dr Mcclelland Onset: 05/19/2013 Hypothyroidism Gerry Ren M.D.,FACP Onset: 09/30/2013 Type 2 diabetes mellitus Gerry Ren M.D.,SHIVAMP Onset: 10/17/2014 Non-alcoholic fatty liver Gerry Ren M.D.,SHIVAMP Onset: 10/17/2014 Primary gout Gerry Ren M.D.,FACP Onset: 10/17/2014 Uric acid urolithiasis Gerry Ren M.D.,FACP Onset: 07/18/2016 History of recurrent pneumonia Porsha Hawkins M.D. Active Onset: History of malignant basal cell Active neoplasm of skin Onset: 12/16/2016 Actinic keratosis Porsha Hawkins M.D. Active Onset: 11/15/2011 Difficulty breathing Westley Sanabria M.D. Resolved Resolved: 05/19/2013 Onset: 02/19/2013 Dyspnea Maico Andre M.D. Resolved Resolved: 05/19/2013 Family History Date Family Member(s) Problem(s) Comments General Cancer General Heart Disease Father Hemochromatosis Father Diabetes, Non Insulin Dependent Father Alcoholism Mother due to Stroke () Mother Stroke First Son Diabetes Type II Siblings 8 : (age 18 First Brother due to Motor Vehicle Years) Accident Second Brother Atrial Fibrillation First Sister due to Cancer () - Signet cell Second Sister Hypertension Social History Type Date Description Comments Lives With Family Lives With of cancer 02/26 Occupation Retired Occupation [employer] Work Status Not Currently Working retired Cigarette Use Former Cigarette Smoker ETOH Use 07/08/2013 Currently consumes alcohol 6-8oz wine daily, 1-2 oz of gin daily Smoking Patient is a former smoker smoked 2 packs a day for 15 yrs, quit about 40 years ago Recreational Drug Use Denies Drug Use Daily Caffeine Consumes on average 5-10 cups of regular coffee per day Exercise Type/Frequency Exercises regularly no formal exercise, some walking, active lifestyle General Hx Text 2 children Allergies, Adverse Reactions, Alerts Date Description Reaction Status Severity Comments 02/19/2013 Lipitor active CPK elevation >400 02/19/2013 Sulfa Antibiotics rash/hives active 08/19/2013 Temazepam severe rash active Severe 10/17/2014 Accupril active cough Medications Medication Date Status Form Strength Qnty SIG Indications Ordering Provider Sildenafil 06/03 Active Tablets 50mg 60tab as needed Porsha Citrate s prior to yoli Hawkins M.D. activity, pt can determine need. Basaglar 04/16 Active Solution 100Unit/M 30ml 35 units Porsha Kwikpen Pen-Inject L daily Jamison Hawkins Valsartan 09/05 Active Tablets 80mg 90tab 1/2 by mouth I10 Porsha /2017 s every day Jamison Hawkins Metformin HCL 12/31 Active Tablets 500mg 90tab once a day Porsha s Jamison Hawkins Levothyroxine 09/24 Active Tablets 125mcg 90tab take 1 Porsha s tablet by Shruthi, mouth once M.D. daily Lotrimin AF 06/28 Active Cream 1% 45uni apply to B35.8 ts area twice a martín Elmore.Sonny Folic Acid 03/30 Active Tablets 800mcg 1 by mouth Yamilka /2015 every day Jamison [place] Pravachol 03/29 Active Tablets 80mg 90tab 1 by mouth s every day Jamison Hawkins Onetouch 02/17 Active Misc 100un test two Porsha Delica Lanc its times a day Jackie Hawkins Fine 33G and as M.DKedar needed Pen [place] 01/26 Active Misc 31G X 8 100un use with Porsha mm its lantus subq Shruthi everyday Jamison dx:e11.9 Onetouch Ultra 10/17 Active Kit W/Device 1unit use daily to E11.9 Dev Stanley s test glucose Sonny Bo, dx 250.00 M.D.,FACP Onetouch Ultra 10/17 Active Strips 100un test up to E11.9 Porsha its 1-2 times a Shruthi, day or as M.D. directed Fluticasone 07/28 Active Suspension 50mcg/Act 1unit 1 sprays 786.2 Paul Bazan Propionate s intranasal M.DKedar bid every evening Bi-Pap Active Device as directed / used during the night for severe sleep apnea Proair HFA Active Aerosol 108(90Bas 1unit 2 puffs by / e) s mouth every Ramírez, mcg/Act 4 hours as M.DKedar needed Claritin Active Tablets 10mg 90tab 1 by mouth Tyler s every day as Sonny Bo, needed M.D.,FACP Multi For Him Active Tablets 1 by mouth Unknown 50+ /0000 every day Zinc 00 Active Tablets 50mg one every Unknown / day Ranitidine Active Tablets 10mg 1 PO bid Unknown Acid Fast Food Attendant / Aspirin Ec Active Tablets DR 81mg 1 by mouth Unknown /0000 every day Allopurinol Active Tablets 300mg 90tab 1 by mouth Porsha / s every day Jamison Hawkins Sildenafil 06/18 Hx Tablets 20mg 50tab 1 by mouth Porsha Citrate s 30 min Shruthi, - before M.D. 07/06 activity Levitra 05/06 Hx Tablets 20mg 14tab 1 by mouth Porsha s once daily Shruthi, - as needed M.D. 06/03 Amoxicillin/Cl 03/17 Hx Tablets 875-125mg 20tab 1 tab by L02.219 Porsha avulanate s mouth twice Shruthi, Potassium - a day M.D. 03/27 Prednisone 11/27 Hx Tablets 10mg QS take 2 tab L23.9 daily x 2 Hawkins, - days then 1 M.D. 12/03 tab daily x 2 days and then 04/15 tab daily x 2 days Cephalexin 11/27 Hx Tablets 250mg 15tab 1 tab tid X L23.9 Porsha /2017 s 5 days Shruthi, - M.D. 12/02 Viagra 09/05 Hx Tablets 50mg samples given 2 Hawkins, - packets of M.D. 06/03 100 mg and packet of 50 mg Cefuroxime 07/14 Hx Tablets 500mg 14tab 1 tab bid X Unknown Axetil s 6 days - 07/20 Tramadol 02/25 Hx Tablets 37.5-325m 30tab 1-2 tablets Belinda Hydrochloride g s every 4- 6 Lerma, Acetaminophen - hours as M.D. 04/21 needed pain Viagra 08/21 Hx Tablets 100mg 20tab 1 by mouth Yamilka s as needed Ramírez, - once per day M.D. 12/31 Metformin HCL 06/28 Hx Tablets ER 500mg 60tab take 1 tab Porsha ER 24HR s twice a day Shruthi, - M.D. 12/31 Levitra 06/28 Hx Tablets 20mg 14tab 1 by mouth Z11.3 s once daily Hawkins, - as needed M.D. 09/05 Amoxicillin 05/29 Hx Capsules 500mg 30cap 1 three J06.9 Juan J Fink s times a day Summer, - for 10 days M.D. 06/28 Metformin HCL 05/16 Hx Tablets 500mg 90tab 2 tab by s mouth in the Elmore, - in the M.D. 12/31 morning and 1 tab in the at night Lantus 03/30 Hx Solution 100Unit/M 21uni inject 35 Porsha Pen-Inject L ts units under Hawkins, - the skin M.D. 04/16 daily at the same time at bedtime Pravachol 03/29 Hx Tablets 80mg 90tab 1 tablets po Gigante, s [facility] DO [place] - 03/30 Synthroid 03/28 Hx Tablets 125mcg 30tab 1 by mouth Yamilka s every day Ramírez, - M.D. 09/24 Amoxicillin 02/24 Hx Capsules 500mg 20cap 1 by mouth J01.90 Yamilka s twice a day Ramírez, - M.D. 03/30 Guaifenesin 02/24 Hx Tablets 400mg 60tab 1 tab by J01.90 Yamilka /2015 s mouth every Elmore, - 12hours as M.D. 03/30 needed for congestion Onetouch Club 02/17 Hx Misc Tyler Clements Arsh Bridges - Jamison,[facility] 02/16 Onetouch 02/17 Hx 1Box As directed Mark Kilgore to test two [place], [employer] - times a day 02/16 Lantus 01/25 Hx Solution 100Unit/M 20ml inject 20 E11.9 L units under [place], [employer] - the skin 01/25 daily at the same time at bedtime Lantus 01/25 Hx Solution 100Unit/M 20ml inject 25 Mark Purdy Pen-Inject L units under [place], [employer] - the skin 03/30 daily at the same time at bedtime Synthroid 01/11 Hx Tablets 100mcg 90tab 1 by mouth Tyler /2014 s every day Sruthi Bridges M.D. (Daw),[facility] 03/28 Levothyroxine 11/10 Hx Solution 100mcg 30uni 1 by mouth Tyler Sodium /2014 Rec ts every day Sruthi Bridges M.D.,[facility] 01/11 Levothyroxine 10/31 Hx Tablets 150mcg 90tab 1 by mouth Mark Sodium /2014 s every day SARAH BETH Wilkerson - 11/10 Onetouch 10/18 Hx Tyler Delica Lancets /2014 Sruthi Bridges M.D.,[facility] 02/17 Levothyroxine 10/17 Hx Tablets 125mcg 90tab 1 by mouth Tyler Sodium /2014 s every day Sruthi Bridges M.D.,[facility] 10/31 Metformin HCL 10/17 Hx Tablets ER 500mg 60tab take 1 tab Tyler ER /2014 24HR s twice a day Sruthi Bridges M.D.,[facility] 05/16 Valsartan 10/17 Hx Tablets 80mg 90tab 1 by mouth E11.9 Tyler /2014 s every day Sruthi Bridges M.D.,[facility] 07/18 Accupril 07/18 Hx Tablets 10mg 30tab 1 Tab By 250.00 Mark s Mouth Daily SARAH BETH Wilkerson - 10/17 Levothyroxine 07/12 Hx Tablets 150mcg 90tab 1 by mouth Woody Garvey /2014 s qd SARAH BETH Thomas - 10/16 Robitussin 07/01 Hx Liquid 10-200mg/ takes as Unknown Cough & /2014 5ML directed Chest - Congestion DM 07/27 Levothyroxine 04/18 Hx Tablets 175mcg 90tab 1 by mouth 244.8 Woody Sodium s every other SARAH BETH Thomas - day 09/09 with 150mcg tab Synthroid 09/30 Hx Tablets 150mcg 90tab 1 by mouth 244.8 Tyler s every day Sruthi Bridges M.D.,[facility] 04/18 Clobetasol 09/13 Hx Cream 0.05% 30gm use Other Propionate sparingly on Ordering - affected Provider 04/15 areas twice daily for 2 weeks. Zinc 09/08 Hx Tablets 50mg every day - 09/30 Freestyle Lite 08/19 Hx Strips 100un test up to 4 250.00 Test its times a day Sonny Bo - dx code: Jamison,[facility] 10/17 250. Prednisone 07/05 Hx Tablets 10mg 5 mg X 6 po Other ( daily Ordering - titrating Provider 09/08 down until finished. Omeprazole 07/[address] 20mg 90cap 1 by mouth s every day Sruthi Bridges prn Jamison,[facility] 09/08 Temazepam 07/05 Hx Capsules 15mg 30cap 1 by mouth s every night Ordering - at bedtime Provider 08/19 Atovaquone 07/05 Hx Tablets 750mg 14tab 1 po q 12 hr s x 7 days Ordering - Provider 08/19 Ceftin 07/05 Hx Tablets 250mg 6tabs by mouth twice a day Ordering - x 3 days Provider 07/08 Proair HFA 05/19 Hx Aerosol 108(90Bas 1unit 2 puffs po e) s q4h prn Sruthi Brigdes mcg/Act Jamison,[facility] 07/06 Asmanex 30 05/19 Hx Aerosol 220mcg/In use 2 puffs Tyler Metered Doses /2013 h once daily Sruthi Bridges M.D.,[facility] 07/05 Diovan 05/19 Hx Tablets 160mg 45tab 1/2 tab po s qd Sruthi Bridges M.D.,[facility] 07/05 Allopurinol Hx Tablets 300mg 90tab 1 by mouth s every day Sruthi Brigdes M.D.,[facility] 09/30 Aspirin 00 Hx Tablets 81mg 1 po qd - 05/20 Singulair Hx Tablets 10mg 90tab 1 po qd s - 07/05 Multivitamins 00/00 Hx Capsules 30cap 1 capsule Unknown /0000 s anthony;y - 07/[address] 1000mg 1 po qd Unknown / - 07/05 Pravachol 00 Hx Tablets 80mg 90tab 1 tablets po Unknown /0000 s qhs - 09/30 Vitamin B 00/00 Hx Tablets 30tab 1 po qd Unknown Complex /0000 s - 07/05 Diovan 00 Hx Tablets 80mg 90tab 1 po qd Unknown / s - 05/19 Zinc 00/00 Hx Tablets 50mg qd Unknown / - 07/05 Levothyroxine Hx Tablets 125mcg 30tab 1 po qd 244.8 Unknown Sodium /0000 s - 09/30 Asmanex 00/ Hx prn Unknown Inhaler / - 05/19 Dulera Hx Aerosol 100-5mcg/ 3mon 2 puff twice Unknown /0000 Act a day - 07/08 Multivitamin Hx Liquid Unknown & Mineral / - 09/30 Fish Oil Hx Capsules 1200mg 1 by mouth Unknown /0000 every day - 09/30 Vitamin B-6 Hx Tablets 100mg qd Unknown / - 09/30 Zinc 0000 Hx Tablets 50mg every day Unknown / - 09/08 Diovan 00 Hx Tablets 160mg 90tab 1/2 by Unknown /0000 s mouth every - day - on 09/30 hold for Hydroxyzine Hx Tablets 25mg 30tab take 1 Unknown HCL /0000 s tablet by - mouth 3 04/15 times daily /2014 as needed for itch Clotrimazole Hx Cream 1% 50gm twice a day Unknown /0000 x 6 weeks - 09/30 Betamethasone 00 Hx Cream 0.05% Unknown Dipropionate / - 04/15 Asmanex 120 00/ Hx Aerosol 220mcg/In 1mont 2 puff twice Unknown Metered Doses /0000 h h a day - 06/12 Zyrtec Allergy 00/00 Hx Tablets 10mg 1 by mouth Unknown /0000 every day - 08/28 Metformin HCL 0000 Hx Tablets 500mg 60tab 1 by mouth Tyler /0000 s twice a day Sruthi Bridges M.D.,FACP 10/17 Dulera Hx Aerosol 200-5mcg/ 2 puff twice Unknown /0000 Act a day X 3 - weeks then 07/[address] Hx C[address] 10mg 1 by mouth Unknown /0000 twice a day - 12/31 Medications Administered in Office Medication Date Status Form Strength Qnty SIG Indications Ordering Provider Depomedrol Administered Injection Belinda 40MG 018 Jamison Lerma Depomedrol Administered Injection Michelle 40MG 017 Bitting, [facility] Depomedrol Administered Injection Michelle 40MG 017 Bitting, [facility] Depomedrol Administered Injection Michelle 40MG 017 Bitting, [facility] Depomedrol Administered Injection Belinda 40MG 016 Jamison Lerma Depomedrol Administered Injection Belinda 40MG 016 Jamison Lerma Depomedrol Administered Injection Belinda 80MG 015 Jamison Lerma Inj, Administered Injection Maico Dennis Regadenoson, 013 Jamison Andre 0.1 MG Technetium TC Administered Injection Maico Dennis 99M 013 Jamison Andre Tetrofosmin, Per Unit Dose Up To 40 Millicuries Immunizations CPT Code Status Date Vaccine Reaction Lot # [id number] Given 01/21/2017 Influenza Virus Vaccine, Quadrivalent, Split, Preservative Free [id number] Given 09/10/2016 Tdap - Tetanus/Diptheria/Acellular [id number] Pertussis 52704 Given 02/06/2016 Fluzone High Dose 71842 Given 03/30/2015 Pneumococcal Conjugate Vaccine 13 Valent [id number] For Intramuscular Use 29563 Given 01/27/2014 [facility]neum[facility] [address] Given 01/27/2014 Flu Vaccine Split Virus Preservative Free For Indiv [id number] Older 20822 Given 01/22/2008 Pneumonia Vaccine Vital Signs Date Vital Result Comment 07/09/2017 Weight 256.00 lb Heart Rate 92 /min BP Systolic Sitting 142 mmHg BP Diastolic Sitting 70 mmHg Body Temperature 100.7 F O2 % BldC Oximetry 95 % 06/12/2017 Heart Rate 79 /min BP Systolic 138 mmHg BP Diastolic 68 mmHg Respiratory Rate 16 /min Body Temperature 97.0 F Pain Level 9 03/28/2017 Heart Rate 72 /min BP Systolic Sitting 132 mmHg BP Diastolic Sitting 78 mmHg Respiratory Rate 18 /min Body Temperature 98.1 F 03/18/2017 Height 74 inches 6'2" Weight 248.00 lb Heart Rate 74 /min BP Systolic 122 mmHg BP Diastolic 80 mmHg Respiratory Rate 16 /min Body Temperature 97.1 F BMI (Body Mass Index) 31.8 kg/m2 03/17/2017 Weight 257.00 lb Heart Rate 61 /min BP Systolic Sitting 134 mmHg BP Diastolic Sitting 80 mmHg Body Temperature 97.3 F Pain Level 2 O2 % BldC Oximetry 97 % 02/18/2017 Weight 256.00 lb Heart Rate 78 /min BP Systolic Sitting 126 mmHg BP Diastolic Sitting 68 mmHg O2 % BldC Oximetry 96 % 01/20/2017 Height 73 inches 6'1" Weight 256.00 lb Heart Rate 76 /min BP Systolic 128 mmHg BP Diastolic 62 mmHg Respiratory Rate 20 /min Body Temperature 96.1 F Pain Level 4 BMI (Body Mass Index) 33.8 kg/m2 01/02/2017 Height 73 inches 6'1" Weight 255.50 lb Heart Rate 73 /min BP Systolic Sitting 122 mmHg BP Diastolic Sitting 68 mmHg Body Temperature 97.8 F O2 % BldC Oximetry 96 % BMI (Body Mass Index) 33.7 kg/m2 11/27/2016 Weight 257.38 lb Heart Rate 68 /min BP Systolic Sitting 122 mmHg BP Diastolic Sitting 78 mmHg Body Temperature 96.7 F O2 % BldC Oximetry 94 % 09/10/2016 Heart Rate 60 /min BP Systolic 132 mmHg left BP Diastolic 76 mmHg left BP Systolic Sitting 120 mmHg right BP Diastolic Sitting 76 mmHg right 09/05/2016 Height 74 inches 6'2" Weight 252.12 lb Heart Rate 64 /min BP Systolic 130 mmHg BP Diastolic 70 mmHg Body Temperature 95.9 F O2 % BldC Oximetry 98 % BMI (Body Mass Index) 32.4 kg/m2 08/21/2016 Height 74 inches 6'2" Weight 252.00 lb Heart Rate 68 /min BP Systolic 130 mmHg BP Diastolic 80 mmHg Respiratory Rate 18 /min Body Temperature 96.4 F Pain Level 5 BMI (Body Mass Index) 32.4 kg/m2 07/30/2016 Weight 252.00 lb Heart Rate 64 /min BP Systolic Sitting 134 mmHg BP Diastolic Sitting 80 mmHg Respiratory Rate 15 /min Body Temperature 98.5 F O2 % BldC Oximetry 98 % 07/18/2016 Weight 254.00 lb Heart Rate 66 /min BP Systolic Sitting 118 mmHg BP Diastolic Sitting 78 mmHg Respiratory Rate 14 /min Body Temperature 98.2 F O2 % BldC Oximetry 97 % 07/11/2016 Weight 256.00 lb Heart Rate 90 /min BP Systolic Sitting 150 mmHg BP Diastolic Sitting 67 mmHg Respiratory Rate 15 /min Body Temperature 99.2 F O2 % BldC Oximetry 98 % 05/02/2016 Weight 257.38 lb Heart Rate 67 /min BP Systolic Sitting 130 mmHg BP Diastolic Sitting 70 mmHg Body Temperature 96.0 F O2 % BldC Oximetry 97 % 04/22/2016 Height 74 inches 6'2" Weight 250.00 lb Respiratory Rate 16 /min Pain Level 2 BMI (Body Mass Index) 32.1 kg/m2 03/25/2016 Height 74 inches 6'2" Weight 250.00 lb Respiratory Rate 16 /min Body Temperature 97.4 F Pain Level 0 BMI (Body Mass Index) 32.1 kg/m2 02/26/2016 Height 74 inches 6'2" Weight 250.00 lb Pain Level 0 BMI (Body Mass Index) 32.1 kg/m2 02/16/2016 Height 74 inches 6'2" Weight 250.00 lb Heart Rate 61 /min BP Systolic 135 mmHg BP Diastolic 70 mmHg Body Temperature 96.9 F O2 % BldC Oximetry 97 % BMI (Body Mass Index) 32.1 kg/m2 02/07/2016 Height 74 inches 6'2" Weight 250.00 lb Heart Rate 60 /min BP Systolic 118 mmHg BP Diastolic 68 mmHg BMI (Body Mass Index) 32.1 kg/m2 01/01/2016 Weight 252.00 lb Heart Rate 62 /min BP Systolic Sitting 136 mmHg BP Diastolic Sitting 80 mmHg Body Temperature 97.5 F O2 % BldC Oximetry 97 % 08/29/2015 Weight 244.00 lb Heart Rate 58 /min BP Systolic Sitting 112 mmHg BP Diastolic Sitting 70 mmHg Body Temperature 96.3 F O2 % BldC Oximetry 96 % 06/29/2015 Height 73.25 inches 6'1.25" Weight 248.00 lb Heart Rate 74 /min BP Systolic Sitting 119 mmHg BP Diastolic Sitting 72 mmHg Body Temperature 96.4 F Pain Level 0 O2 % BldC Oximetry 95 % BMI (Body Mass Index) 32.5 kg/m2 05/29/2015 Height 73.25 inches 6'1.25" Weight 255.75 lb Heart Rate 74 /min BP Systolic Sitting 126 mmHg BP Diastolic Sitting 64 mmHg Respiratory Rate 16 /min Body Temperature 96.8 F O2 % BldC Oximetry 98 % BMI (Body Mass Index) 33.5 kg/m2 05/16/2015 Height 73.25 inches 6'1.25" Weight 254.00 lb Heart Rate 81 /min BP Systolic 124 mmHg BP Diastolic 70 mmHg Body Temperature 97.3 F O2 % BldC Oximetry 96 % BMI (Body Mass Index) 33.3 kg/m2 03/31/2015 Weight 255.00 lb Heart Rate 83 /min BP Systolic Sitting 131 mmHg BP Diastolic Sitting 76 mmHg Body Temperature 97.6 F 03/30/2015 Height 74 inches 6'2" Weight 255.00 lb Heart Rate 63 /min BP Systolic 108 mmHg BP Diastolic 74 mmHg Body Temperature 96.8 F O2 % BldC Oximetry 95 % BMI (Body Mass Index) 32.7 kg/m2 02/24/2015 Weight 258.00 lb Heart Rate 84 /min BP Systolic Sitting 137 mmHg BP Diastolic Sitting 76 mmHg Body Temperature 97.3 F O2 % BldC Oximetry 95 % 01/25/2015 Height 74 inches 6'2" Weight 262.00 lb Heart Rate 74 /min BP Systolic Sitting 126 mmHg BP Diastolic Sitting 70 mmHg Body Temperature 96.7 F O2 % BldC Oximetry 96 % BMI (Body Mass Index) 33.6 kg/m2 11/24/2014 Height 74 inches 6'2" Weight 255.00 lb Reported Heart Rate 82 /min BP Systolic 138 mmHg BP Diastolic 78 mmHg Respiratory Rate 14 /min O2 % BldC Oximetry 97 % BMI (Body Mass Index) 32.7 kg/m2 10/17/2014 Height 74 inches 6'2" Weight 255.12 lb Heart Rate 74 /min BP Systolic Sitting 136 mmHg BP Diastolic Sitting 72 mmHg Body Temperature 97.2 F O2 % BldC Oximetry 91 % BMI (Body Mass Index) 32.8 kg/m2 07/28/2014 Height 74 inches 6'2" Weight 258.50 lb Heart Rate 68 /min BP Systolic Sitting 138 mmHg BP Diastolic Sitting 80 mmHg O2 % BldC Oximetry 93 % BMI (Body Mass Index) 33.2 kg/m2 Neck Circumference in inches 18 07/18/2014 Weight 255.00 lb Heart Rate 77 /min BP Systolic Sitting 140 mmHg BP Diastolic Sitting 78 mmHg Body Temperature 97.0 F O2 % BldC Oximetry 97 % 07/04/2014 Heart Rate 96 /min BP Systolic Sitting 140 mmHg BP Diastolic Sitting 78 mmHg Respiratory Rate 20 /min O2 % BldC Oximetry 97 % 05/13/2014 Height 72 inches 6'0" Weight 250.00 lb Heart Rate 77 /min BP Systolic Sitting 144 mmHg BP Diastolic Sitting 84 mmHg Respiratory Rate 20 /min Body Temperature 97.0 F O2 % BldC Oximetry 98 % BMI (Body Mass Index) 33.9 kg/m2 Neck Circumference in inches 18 04/28/2014 Height 74 inches 6'2" Weight 254.00 lb Heart Rate 95 /min BP Systolic 134 mmHg BP Diastolic 85 mmHg BMI (Body Mass Index) 32.6 kg/m2 04/18/2014 Weight 258.50 lb Heart Rate 88 /min BP Systolic Sitting 134 mmHg BP Diastolic Sitting 76 mmHg Body Temperature 97.0 F O2 % BldC Oximetry 93 % 09/30/2013 Weight 255.00 lb Heart Rate 70 /min BP Systolic Sitting 132 mmHg BP Diastolic Sitting 80 mmHg Body Temperature 96.7 F 09/08/2013 Weight 253.00 lb Heart Rate 74 /min BP Systolic Sitting 116 mmHg BP Diastolic Sitting 58 mmHg Body Temperature 97.5 F O2 % BldC Oximetry 92 % 08/19/2013 Height 73.5 inches 6'1.50" Weight 250.00 lb Heart Rate 80 /min BP Systolic Sitting 140 mmHg BP Diastolic Sitting 76 mmHg Body Temperature 96.7 F BMI (Body Mass Index) 32.5 kg/m2 07/08/2013 Height 73.75 inches 6'1.75" Weight 248.75 lb Heart Rate 80 /min BP Systolic Sitting 98 mmHg BP Diastolic Sitting 52 mmHg Body Temperature 96.5 F O2 % BldC Oximetry 90 % room air, 89% w/ exercise. BMI (Body Mass Index) 32.2 kg/m2 05/19/2013 Height 73.5 inches 6'1.50" Weight 260.00 lb Heart Rate 94 /min BP Systolic Sitting 130 mmHg BP Diastolic Sitting 64 mmHg O2 % BldC Oximetry 90 % BMI (Body Mass Index) 33.8 kg/m2 02/19/2013 Height 74 inches 6'2" Weight 263.00 lb Heart Rate 72 /min BP Systolic 120 mmHg Ra large cuff BP Diastolic 70 mmHg Ra large cuff BP Systolic Sitting 128 mmHg LA large cuff BP Diastolic Sitting 68 mmHg LA large cuff BP Systolic Standing 130 mmHg LA BP Diastolic Standing 66 mmHg LA Respiratory Rate 18 /min BMI (Body Mass Index) 33.8 kg/m2 Results Test Date Test Result H/L Range Note Retic Count 05/05/2017 Retic Count 2.0 % High 0.5-1.5 1 Corrected Retic Count 1.9 % High 0.5-1.5 1 Maturation Factor Retic 1.0 1 Retic Index 1.90 1 Mean Retic Volume 120.2 1 Immature Retic Fraction 0.45 1 RBC Retic Count 4.32 10^6/uL Low 4.6-6.2 1 Hematocrit for Retic CNT 43 % 42-52 1 CBC Auto Diff 05/05/2017 White Blood Count 6.0 10^3/uL 3.5-10.8 1 Red Blood Count 4.32 10^6/uL 4.0-5.4 1 Hemoglobin 14.5 g/dL 14.0-18.0 1 Hematocrit 43 % 42-52 1 Mean Corpuscular Volume 100 fL High 80-94 1 Mean Corpuscular Hemoglobin 34 pg High 27-31 1 Mean Corpuscular HGB Conc 34 g/dL 31-36 1 Red Cell Distribution Width 14 % 10.5-15 1 Platelet Count 177 10^3/uL 150-450 1 Mean Platelet Volume 9 um3 7.4-10.4 1 Abs Neutrophils 3.1 10^3/uL 1.5-7.7 1 Abs Lymphocytes 1.9 10^3/uL 1.0-4.8 1 Abs Monocytes 0.4 10^3/uL 0-0.8 1 Abs Eosinophils 0.6 10^3/uL 0-0.6 1 Abs Basophils 0 10^3/uL 0-0.2 1 Abs Nucleated RBC 0 10^3/uL 1 Granulocyte % 51.4 % 38-83 1 Lymphocyte % 32.4 % 25-47 1 Monocyte % 6.4 % 1-9 1 Eosinophil % 9.4 % High 0-6 1 Basophil % 0.4 % 0-2 1 Nucleated Red Blood Cells % 0 1 Comp Metabolic Panel 05/05/2017 Sodium 139 mmol/L 133-145 1 Potassium 4.9 mmol/L 3.5-5.0 1 Chloride 105 mmol/L 101-111 1 Co2 Carbon Dioxide 28 mmol/L 22-32 1 Anion Gap 6 mmol/L 2-11 1 Glucose 110 mg/dL High 70-100 1 Blood Urea Nitrogen 25 mg/dL High 6-24 1 Creatinine 0.89 mg/dL 0.67-1.17 1 BUN/Creatinine Ratio 28.1 High 8-20 1 Calcium 9.5 mg/dL 8.6-10.3 1 Total Protein 6.2 g/dL Low 6.4-8.9 1 Albumin 4.5 g/dL 3.2-5.2 1 Globulin 1.7 g/dL Low 2-4 1 Albumin/Globulin Ratio 2.6 1-3 1 Total Bilirubin 0.60 mg/dL 0.2-1.0 1 Alkaline Phosphatase 67 U/L 34-104 1 Alt 32 U/L 7-52 1 Ast 22 U/L 13-39 1 Egfr Non- 83.1 >60 1 Egfr 106.9 >60 1, 2 Renal Function Panel 03/20/2017 Albumin 4.2 g/dL 3.2-5.2 Calcium 9.2 mg/dL 8.6-10.3 Co2 Carbon Dioxide 27 mmol/L 22-32 Chloride 106 mmol/L 101-111 Glucose 100 mg/dL 70-100 Phosphorus 3.3 mg/dL 2.5-5.0 Potassium 4.1 mmol/L 3.5-5.0 Sodium 139 mmol/L 133-145 Blood Urea Nitrogen 24 mg/dL 6-24 Anion Gap 6 mmol/L 2-11 Creatinine 0.99 mg/dL 0.67-1.17 BUN/Creatinine Ratio 24.2 High 8-20 Egfr Non- 73.5 >60 Egfr 94.5 >60 3 Urine Microalbumin Random 02/18/2017 Ur Microalbumin (mg/L) < 15.0 mg/L Urine Creatinine 38.65 mg/dL Urine Microalbumin/Creatinine TNP ug/mg <31 4 Laboratory test finding 02/18/2017 Hemoglobin A1c 6.2 5-7 Comp Metabolic Panel 02/04/2017 Sodium 140 mmol/L 133-145 Potassium 4.9 mmol/L 3.5-5.0 Chloride 105 mmol/L 101-111 Co2 Carbon Dioxide 29 mmol/L 22-32 Anion Gap 6 mmol/L 2-11 Glucose 116 mg/dL High 70-100 Blood Urea Nitrogen 25 mg/dL High 6-24 Creatinine 1.06 mg/dL 0.67-1.17 BUN/Creatinine Ratio 23.6 High 8-20 Calcium 9.5 mg/dL 8.6-10.3 Total Protein 6.3 g/dL Low 6.4-8.9 Albumin 4.5 g/dL 3.2-5.2 Globulin 1.8 g/dL Low 2-4 Albumin/Globulin Ratio 2.5 1-3 Total Bilirubin 0.60 mg/dL 0.2-1.0 Alkaline Phosphatase 73 U/L 34-104 Alt 36 U/L 7-52 Ast 21 U/L 13-39 Egfr Non- 67.9 >60 Egfr 87.4 >60 5 Lipid Profile (Trig/Chol/HDL) 02/04/2017 Triglycerides 88 mg/dL 6 Cholesterol 159 mg/dL 7 HDL Cholesterol 53.7 mg/dL 8 LDL Cholesterol 88 mg/dL 9 Laboratory test finding 02/04/2017 Uric Acid 6.4 mg/dL 4.4-7.6 T3 Free 2.80 pg/mL 2.5-3.9 TSH (Thyroid Stim Horm) 1.85 mcIU/mL 0.34-5.60 Free T4 (Free Thyroxine) 0.76 ng/dL 0.61-1.12 CBC Auto Diff 10/29/2016 White Blood Count 5.5 10^3/uL 3.5-10.8 Red Blood Count 4.39 10^6/uL 4.0-5.4 Hemoglobin 14.8 g/dL 14.0-18.0 Hematocrit 44 % 42-52 Mean Corpuscular Volume 100 fL High 80-94 Mean Corpuscular Hemoglobin 34 pg High 27-31 Mean Corpuscular HGB Conc 34 g/dL 31-36 Red Cell Distribution Width 14 % 10.5-15 Platelet Count 153 10^3/uL 150-450 Mean Platelet Volume 9 um3 7.4-10.4 Abs Neutrophils 2.8 10^3/uL 1.5-7.7 Abs Lymphocytes 1.7 10^3/uL 1.0-4.8 Abs Monocytes 0.4 10^3/uL 0-0.8 Abs Eosinophils 0.5 10^3/uL 0-0.6 Abs Basophils 0 10^3/uL 0-0.2 Abs Nucleated RBC 0 10^3/uL Granulocyte % 51.8 % 38-83 Lymphocyte % 31.5 % 25-47 Monocyte % 7.7 % 1-9 Eosinophil % 8.4 % High 0-6 Basophil % 0.6 % 0-2 Nucleated Red Blood Cells % 0 Retic Count 10/29/2016 Retic Count 2.1 % High 0.5-1.5 Corrected Retic Count 2.1 % High 0.5-1.5 Maturation Factor Retic 1.0 Retic Index 2.10 Mean Retic Volume 115.1 Immature Retic Fraction 0.44 RBC Retic Count 4.39 10^6/uL Low 4.6-6.2 Hematocrit for Retic CNT 44 % 42-52 Laboratory test finding 10/29/2016 LDH 172 U/L 140-271 Lipid Profile (Trig/Chol/HDL) 09/04/2016 Triglycerides 96 mg/dL 10 Cholesterol 141 mg/dL 11 HDL Cholesterol 51.4 mg/dL 12 LDL Cholesterol 70 mg/dL 13 Laboratory test finding 09/04/2016 Uric Acid 6.1 mg/dL 4.4-7.6 Comp Metabolic Panel 09/04/2016 Sodium 139 mmol/L 133-145 Potassium 4.1 mmol/L 3.5-5.0 Chloride 106 mmol/L 101-111 Co2 Carbon Dioxide 27 mmol/L 22-32 Anion Gap 6 mmol/L 2-11 Glucose 125 mg/dL High 70-100 Blood Urea Nitrogen 21 mg/dL 6-24 Creatinine 0.89 mg/dL 0.67-1.17 BUN/Creatinine Ratio 23.6 High 8-20 Calcium 9.1 mg/dL 8.6-10.3 Total Protein 6.3 g/dL Low 6.4-8.9 Albumin 4.5 g/dL 3.2-5.2 Globulin 1.8 g/dL Low 2-4 Albumin/Globulin Ratio 2.5 1-3 Total Bilirubin 0.60 mg/dL 0.2-1.0 Alkaline Phosphatase 75 U/L 34-104 Alt 33 U/L 7-52 Ast 21 U/L 13-39 Egfr Non- 83.3 >60 Egfr 107.2 >60 14 Laboratory test finding 09/04/2016 TSH (Thyroid Stim Horm) 0.52 mcIU/mL 0.34-5.60 T3 Free 3.10 pg/mL 2.5-3.9 Free T4 (Free Thyroxine) 0.88 ng/dL 0.61-1.12 Hemoglobin A1c (Glyco HGB) 5.8 % Less than 6.0 15 S.Pneumoniae Igg AB 23 07/25/2016 S. pneumoniae Type 1 IgG 1.6 g/mL &gt ;=2.3 Serotyp AB S. pneumoniae Type 2 IgG AB 1.4 g/mL >=1.0 S. pneumoniae Type 3 IgG AB 0.3 g/mL >=1.8 S. pneumoniae Type 4 IgG AB 0.3 g/mL >=0.6 S. pneumoniae Type 5 IgG AB 9.8 g/mL >=10.7 S. pneumoniae Type 8 IgG AB 3.4 g/mL >=2.9 S. pneumoniae Type 9N IgG AB 1.1 g/mL >=9.2 S. pneumoniae Type 12F IgG AB 0.1 g/mL >=0.6 S. pneumoniae Type 14 IgG AB 1.9 g/mL >=7.0 S. pneumoniae Type 17F IgG AB <0.3 g/mL >=7.8 S. pneumoniae Type 19F IgG AB 1.9 g/mL >=15.0 S. pneumoniae Type 20 IgG AB 0.1 g/mL >=1.3 S. pneumoniae Type 22F IgG AB 6.0 g/mL >=7.2 S. pneumoniae Type 23F IgG AB 1.1 g/mL >=8.0 S. pneumoniae Type 6B IgG AB 4.4 g/mL >=4.7 S. pneumoniae Type 10A IgG AB 0.2 g/mL >=2.9 S. pneumoniae Type 11A IgG AB 5.3 g/mL >=2.4 S. pneumoniae Type 7F IgG AB 2.1 g/mL >=3.2 S. pneumoniae Type 15B IgG AB 2.8 g/mL >=3.3 S. pneumoniae Type 18C IgG AB 1.7 g/mL >=3.3 S. pneumoniae Type 19A IgG AB 2.0 g/mL >=17.1 S. pneumoniae Type 9V IgG AB 2.3 g/mL >=2.6 S. pneumoniae Type 33F IgG AB 0.7 g/mL >=1.7 16 CBC Auto Diff 07/13/2016 White Blood Count 9.5 10^3/uL 3.5-10.8 Red Blood Count 4.13 10^6/uL 4.0-5.4 Hemoglobin 13.7 g/dL Low 14.0-18.0 Hematocrit 40 % Low 42-52 Mean Corpuscular Volume 98 fL High 80-94 Mean Corpuscular Hemoglobin 33 pg High 27-31 Mean Corpuscular HGB Conc 34 g/dL 31-36 Red Cell Distribution Width 13 % 10.5-15 Platelet Count 156 10^3/uL 150-450 Mean Platelet Volume 9 um3 7.4-10.4 Abs Neutrophils 6.3 10^3/uL 1.5-7.7 Abs Lymphocytes 2.0 10^3/uL 1.0-4.8 Abs Monocytes 1.0 10^3/uL High 0-0.8 Abs Eosinophils 0.2 10^3/uL 0-0.6 Abs Basophils 0 10^3/uL 0-0.2 Abs Nucleated RBC 0 10^3/uL Granulocyte % 66.4 % 38-83 Lymphocyte % 20.8 % Low 25-47 Monocyte % 10.3 % High 1-9 Eosinophil % 2.3 % 0-6 Basophil % 0.2 % 0-2 Nucleated Red Blood Cells % 0 Laboratory test finding 07/13/2016 TSH (Thyroid Stim Horm) 0.52 mcIU/mL 0.34-5.60 Blood Culture SEE RESULT BELOW 17 Urinalysis Profile 07/13/2016 Urine Color Yellow Urine Appearance Clear Urine Specific Boykins 1.005 Low 1.010-1.030 Urine pH 6.0 5-9 Urine Urobilinogen Negative Negative Urine Ketones Negative Negative Urine Protein Negative Negative Urine Leukocytes Negative Negative Urine Blood Negative Negative Urine Nitrite Negative Negative Urine Bilirubin Negative Negative Urine Glucose Negative Negative Comp Metabolic Panel 07/13/2016 Sodium 134 mmol/L 133-145 Potassium 3.5 mmol/L 3.5-5.0 Chloride 102 mmol/L 101-111 Co2 Carbon Dioxide 25 mmol/L 22-32 Anion Gap 7 mmol/L 2-11 Glucose 146 mg/dL High 70-100 Blood Urea Nitrogen 15 mg/dL 6-24 Creatinine 0.97 mg/dL 0.67-1.17 BUN/Creatinine Ratio 15.5 8-20 Calcium 9.1 mg/dL 8.6-10.3 Total Protein 6.6 g/dL 6.4-8.9 Albumin 4.0 g/dL 3.2-5.2 Globulin 2.6 g/dL 2-4 Albumin/Globulin Ratio 1.5 1-3 Total Bilirubin 1.20 mg/dL High 0.2-1.0 Alkaline Phosphatase 80 U/L 34-104 Alt 56 U/L High 7-52 Ast 38 U/L 13-39 Egfr Non- 75.5 >60 Egfr 97.0 >60 18 Laboratory test finding 07/13/2016 Troponin-I (TnI) 0.01 ng/mL <0.04 19 Lactic Acid 0.7 mmol/L 0.5-2.0 20 Laboratory test 07/13/2016 Partial Thrombo Time 30.7 seconds 26.0-36.3 finding PTT Inr/Protime 07/13/2016 Inr 1.21 High 0.89-1.11 Laboratory test 05/02/2016 Hemoglobin A1c 5.7 5-7 finding Laboratory test 03/12/2016 Point of Care Glucose 133 mg/dL High 74-106 21 finding Herpes Simplex Type 02/16/2016 Herpes Simplex Type 1 Negative Negative 22 1&2 Igm 2 IgM Herpes Simplex Type 02/16/2016 Herpes Simplex Virus Negative Negative 1&2 Igg I IgG AB Herpes Simplex Virus II IgG AB Negative Negative 23 Urine Microalbumin Random 01/01/2016 Urine Creatinine 108.83 mg/dL Ur Microalbumin (mg/L) < 15.0 mg/L Urine Microalbumin/Creatinine TNP ug/mg <31 24 Laboratory test finding 01/01/2016 Hemoglobin A1c 5.7 5-7 Herpes Simplex Type 06/29/2015 Herpes Simplex Virus I Negative Negative 1&2 Igg IgG AB Herpes Simplex Virus II IgG AB Negative Negative 25 Lipid Profile (Trig/Chol/HDL) 06/26/2015 Triglycerides 107 mg/dL 26 Cholesterol 122 mg/dL 27 HDL Cholesterol 37.8 mg/dL 28 LDL Cholesterol 63 mg/dL 29 Comp Metabolic Panel 06/26/2015 Sodium 140 mmol/L 133-145 Potassium 4.1 mmol/L 3.5-5.0 Chloride 106 mmol/L 101-111 Co2 Carbon Dioxide 26 mmol/L 22-32 Anion Gap 8 mmol/L 2-11 Glucose 133 mg/dL High 70-100 Blood Urea Nitrogen 21 mg/dL 6-24 Creatinine 0.90 mg/dL 0.67-1.17 BUN/Creatinine Ratio 23.3 High 8-20 Calcium 9.2 mg/dL 8.6-10.3 Total Protein 5.9 g/dL Low 6.4-8.9 Albumin 4.6 g/dL 3.2-5.2 Globulin 1.3 g/dL Low 2-4 Albumin/Globulin Ratio 3.5 High 1-3 Total Bilirubin 0.70 mg/dL 0.2-1.0 Alkaline Phosphatase 78 U/L 34-104 Alt 42 U/L 7-52 Ast 23 U/L 13-39 Egfr Non- 82.5 >60 Egfr 106.1 >60 30 Laboratory test finding 06/26/2015 Fructosamine 220 mcmol/L 200 - 285 31 CBC Auto Diff 06/16/2015 White Blood Count 4.8 10^3/uL 3.5-10.8 Red Blood Count 4.23 10^6/uL 4.0-5.4 Hemoglobin 14.6 g/dL 14.0-18.0 Hematocrit 42 % 42-52 Mean Corpuscular Volume 100 fL High 80-94 Mean Corpuscular Hemoglobin 35 pg High 27-31 Mean Corpuscular HGB Conc 35 g/dL 31-36 Red Cell Distribution Width 13 % 10.5-15 Platelet Count 175 10^3/uL 150-450 Mean Platelet Volume 9 um3 7.4-10.4 Abs Neutrophils 2.8 10^3/uL 1.5-7.7 Abs Lymphocytes 1.1 10^3/uL 1.0-4.8 Abs Monocytes 0.4 10^3/uL 0-0.8 Abs Eosinophils 0.4 10^3/uL 0-0.6 Abs Basophils 0.1 10^3/uL 0-0.2 Abs Nucleated RBC 0.02 10^3/uL Granulocyte % 59.8 % 38-83 Lymphocyte % 23.1 % Low 25-47 Monocyte % 8.1 % 1-9 Eosinophil % 7.9 % High 0-6 Basophil % 1.1 % 0-2 Nucleated Red Blood Cells % 0.4 Laboratory test finding 05/16/2015 Hemoglobin A1c 5.6 5-7 Lipid Profile (Trig/Chol/HDL) 03/28/2015 Triglycerides 230 mg/dL 32 Cholesterol 241 mg/dL 33 HDL Cholesterol 37.8 mg/dL 34 LDL Cholesterol 157 mg/dL 35 Comp Metabolic Panel 03/28/2015 Sodium 139 mmol/L 133-145 Potassium 4.1 mmol/L 3.5-5.0 Chloride 106 mmol/L 101-111 Co2 Carbon Dioxide 22 mmol/L 22-32 Anion Gap 11 mmol/L 2-11 Glucose 151 mg/dL High 70-100 Blood Urea Nitrogen 23 mg/dL 6-24 Creatinine 1.00 mg/dL 0.67-1.17 BUN/Creatinine Ratio 23.0 High 8-20 Calcium 9.2 mg/dL 8.6-10.3 Total Protein 6.4 g/dL 6.4-8.9 Albumin 4.7 g/dL 3.2-5.2 Globulin 1.7 g/dL Low 2-4 Albumin/Globulin Ratio 2.8 1-3 Total Bilirubin 0.70 mg/dL 0.2-1.0 Alkaline Phosphatase 82 U/L 34-104 Alt 91 U/L High 7-52 Ast 36 U/L 13-39 Egfr Non- 73.0 >60 Egfr 93.9 >60 36 Laboratory test finding 03/28/2015 TSH (Thyroid Stim 10.95 ?IU/mL High 0.34-5.60 Horm) Free T4 (Free Thyroxine) 0.83 ng/mL 0.61-1.12 Laboratory test finding 01/27/2015 Glucose 163 mg/dL High 70-100 Hemoglobin A1c (Glyco HGB) 7.1 % High Less than 6.0 37 Fructosamine 284 mcmol/L 200 - 285 38 Laboratory test 01/10/2015 TSH (Thyroid Stim Horm) 5.79 ?IU/mL High 0.34- 5.60 finding Laboratory test 11/04/2014 Fructosamine 242 mcmol/L 200 - 285 39 finding Uric Acid 6.6 mg/dL 4.4-7.6 Laboratory test 11/04/2014 TSH (Thyroid Stim 0.10 ?IU/mL Low 0.34-5.60 finding Horm) Laboratory test 10/11/2014 Hemoglobin A1c 5.9 % Less than 6.0 40 finding (Glyco HGB) Comp Metabolic Panel 10/11/2014 Sodium 140 mmol/L 133-145 Potassium 4.2 mmol/L 3.5-5.0 Chloride 106 mmol/L 101-111 Co2 Carbon Dioxide 27 mmol/L 22-32 Anion Gap 7 mmol/L 2-11 Glucose 161 mg/dL High 70-100 Blood Urea Nitrogen 19 mg/dL 6-24 Creatinine 0.93 mg/dL 0.67-1.17 BUN/Creatinine Ratio 20.4 High 8-20 Calcium 9.3 mg/dL 8.6-10.3 Total Protein 6.0 g/dL Low 6.4-8.9 Albumin 4.5 g/dL 3.2-5.2 Globulin 1.5 g/dL Low 2-4 Albumin/Globulin Ratio 3.0 1-3 Total Bilirubin 0.70 mg/dL 0.2-1.0 Alkaline Phosphatase 97 U/L 34-104 Alt 71 U/L High 7-52 Ast 30 U/L 13-39 Egfr Non- 79.4 >60 Egfr 102.1 >60 41 Laboratory test 09/09/2014 TSH (Thyroid Stim 0.13 ?IU/mL Low 0.34-5.60 finding Horm) Laboratory test 07/11/2014 Hemoglobin A1c 6.4 % High Less than 6.0 42 finding Urine Microalbumin 07/11/2014 Ur Microalbumin < 5.0 mg/L Random (mg/L) Urine Creatinine 106.33 mg/dL Urine Microalbumin/Creatinine TNP Less Than 31 43 Laboratory test finding 07/11/2014 TSH (Thyroid Stimulating 0.16 IU/mL Low 0.34-5.60 Horm) PSA Screening 0.611 ng/mL 0-4.000 CBC Auto Diff 07/11/2014 White Blood Count 5.0 10^3/uL 4.8-10.8 Red Blood Count 4.51 10^6/uL 4.0-5.4 Hemoglobin 14.8 g/dL 14.0-18.0 Hematocrit 42 % 42-52 Mean Corpuscular Volume 94 fL 80-94 Mean Corpuscular Hemoglobin 33 pg High 27-31 Mean Corpuscular HGB Conc 35 g/dL 31-36 Red Cell Distribution Width 15 % 10.5-15 Platelet Count 182 10^3/uL 150-450 Mean Platelet Volume 8 um3 7.4-10.4 Abs Neutrophils 3.4 10^3/uL 1.5-7.7 Abs Lymphocytes 0.9 10^3/uL Low 1.0-4.8 Abs Monocytes 0.4 10^3/uL 0-0.8 Abs Eosinophils 0.3 10^3/uL 0-0.6 Abs Basophils 0 10^3/uL 0-0.2 Abs Nucleated RBC 0.02 10^3/uL Granulocyte % 67.8 % 38-83 Lymphocyte % 17.7 % Low 25-47 Monocyte % 8.3 % 1-9 Eosinophil % 5.5 % 0-6 Basophil % 0.7 % 0-2 Nucleated Red Blood Cells % 0.4 Comp Metabolic Panel 07/11/2014 Sodium 138 mmol/L 133-145 Potassium 4.2 mmol/L 3.5-5.0 Chloride 105 mmol/L 101-111 Co2 Carbon Dioxide 26 mmol/L 22-32 Anion Gap 7 mmol/L 2-11 Glucose 137 mg/dL High 70-100 Blood Urea Nitrogen 21 mg/dL 6-24 Creatinine 0.78 mg/dL 0.67-1.17 BUN/Creatinine Ratio 26.9 High 8-20 Calcium 9.8 mg/dL 8.6-10.3 Total Protein 6.1 g/dL Low 6.4-8.9 Albumin 4.7 g/dL 3.2-5.2 Globulin 1.4 g/dL Low 2-4 Albumin/Globulin Ratio 3.4 High 1-3 Total Bilirubin 0.50 mg/dL 0.2-1.0 Alkaline Phosphatase 100 U/L 34-104 Alt 55 U/L High 7-52 Ast 25 U/L 13-39 Egfr Non- 97.6 >60 Egfr 125.5 >60 44 Laboratory test 07/11/2014 LDH 148 U/L 140-271 finding Laboratory test 04/15/2014 TSH (Thyroid 13.79 IU/mL High 0.34-5.60 45, 46 finding Stimulating Horm) Lipid Profile 04/15/2014 Triglycerides 208 mg/dL 45, 47 (Trig/Chol/HDL) Cholesterol 197 mg/dL 45, 48 HDL Cholesterol 26.0 mg/dL 45, 49 LDL Cholesterol 129 mg/dL 45, 50 Laboratory test finding 04/15/2014 Hemoglobin A1c 6.9 % High Less than 6.0 45, 51 Urinalysis Profile 04/06/2014 Urine Color Yellow Urine Appearance Clear Urine Specific [place]kins 1.018 1.010-1.030 Urine pH 6.0 5-9 Urine Urobilinogen Positive Negative Urine Ketones Negative Negative Urine Protein Negative Negative Urine Leukocytes Negative Negative Urine Blood Negative Negative Urine Nitrite Negative Negative Urine Bilirubin Negative Negative Urine Glucose Negative Negative Laboratory test finding 04/06/2014 Lactic Acid 3.1 mmol/L High 0.5-2.2 52 Blood Culture (SEE NOTE) 53 CBC Auto Diff 04/06/2014 White Blood Count 3.0 10^3/uL Low 4.8-10.8 Red Blood Count 3.88 10^6/uL Low 4.0-5.4 Hemoglobin 12.5 g/dL Low 14.0-18.0 Hematocrit 36 % Low 42-52 Mean Corpuscular Volume 92 fL 80-94 Mean Corpuscular Hemoglobin 32 pg High 27-31 Mean Corpuscular HGB Conc 35 g/dL 31-36 Red Cell Distribution Width 17 % High 10.5-15 Platelet Count 236 10^3/uL 150-450 Mean Platelet Volume 8 um3 7.4-10.4 Abs Neutrophils 2.1 10^3/uL 1.5-7.7 Abs Lymphocytes 0.4 10^3/uL Low 1.0-4.8 Abs Monocytes 0.4 10^3/uL 0-0.8 Abs Eosinophils 0.1 10^3/uL 0-0.6 Abs Basophils 0 10^3/uL 0-0.2 Abs Nucleated RBC 0.01 10^3/uL Granulocyte % 70.1 % 38-83 Lymphocyte % 13.5 % Low 25-47 Monocyte % 13.0 % High 1-9 Eosinophil % 2.3 % 0-6 Basophil % 1.1 % 0-2 Nucleated Red Blood Cells % 0.3 Comp Metabolic Panel 04/06/2014 Sodium 135 mmol/L 133-145 Potassium 3.6 mmol/L 3.5-5.0 Chloride 102 mmol/L 101-111 Co2 Carbon Dioxide 22 mmol/L 22-32 Anion Gap 11 mmol/L 2-11 Glucose 225 mg/dL High 70-100 Blood Urea Nitrogen 15 mg/dL 6-24 Creatinine 1.08 mg/dL 0.67-1.17 BUN/Creatinine Ratio 13.9 8-20 Calcium 9.6 mg/dL 8.6-10.3 Total Protein 6.6 g/dL 6.4-8.9 Albumin 4.6 g/dL 3.2-5.2 Globulin 2.0 g/dL 2-4 Albumin/Globulin Ratio 2.3 1-3 Total Bilirubin 0.70 mg/dL 0.2-1.0 Alkaline Phosphatase 75 U/L 34-104 Alt 35 U/L 7-52 Ast 25 U/L 13-39 Egfr Non- 67.0 >60 Egfr 86.2 >60 54 Laboratory test finding 04/06/2014 Rapid Influenza A B Antigen (SEE NOTE) 55 Blood Culture (SEE NOTE) 56 Laboratory test 03/29/2014 Hemoglobin A1c 7.5 % High Less than 6.0 57 finding CBC Auto Diff 03/28/2014 White Blood Count 4.4 10^3/uL Low 4.8-10.8 Red Blood Count 3.90 10^6/uL Low 4.0-5.4 Hemoglobin 12.9 g/dL Low 14.0-18.0 Hematocrit 37 % Low 42-52 Mean Corpuscular Volume 94 fL 80-94 Mean Corpuscular Hemoglobin 33 pg High 27-31 Mean Corpuscular HGB Conc 35 g/dL 31-36 Red Cell Distribution Width 17 % High 10.5-15 Platelet Count 155 10^3/uL 150-450 Mean Platelet Volume 8 um3 7.4-10.4 Abs Neutrophils 3.6 10^3/uL 1.5-7.7 Abs Lymphocytes 0.5 10^3/uL Low 1.0-4.8 Abs Monocytes 0.1 10^3/uL 0-0.8 Abs Eosinophils 0.1 10^3/uL 0-0.6 Abs Basophils 0 10^3/uL 0-0.2 Abs Nucleated RBC 0.01 10^3/uL Granulocyte % 81.8 % 38-83 Lymphocyte % 11.8 % Low 25-47 Monocyte % 3.3 % 1-9 Eosinophil % 2.5 % 0-6 Basophil % 0.6 % 0-2 Nucleated Red Blood Cells % 0.3 Comp Metabolic Panel 03/28/2014 Sodium 139 mmol/L 133-145 Potassium 4.5 mmol/L 3.5-5.0 Chloride 103 mmol/L 101-111 Co2 Carbon Dioxide 27 mmol/L 22-32 Anion Gap 9 mmol/L 2-11 Glucose 214 mg/dL High 70-100 Blood Urea Nitrogen 19 mg/dL 6-24 Creatinine 1.28 mg/dL High 0.67-1.17 BUN/Creatinine Ratio 14.8 8-20 Calcium 9.3 mg/dL 8.6-10.3 Total Protein 6.0 g/dL Low 6.4-8.9 Albumin 4.2 g/dL 3.2-5.2 Globulin 1.8 g/dL Low 2-4 Albumin/Globulin Ratio 2.3 1-3 Total Bilirubin 1.30 mg/dL High 0.2-1.0 Alkaline Phosphatase 69 U/L 34-104 Alt 27 U/L 7-52 Ast 16 U/L 13-39 Egfr Non- 55.1 >60 Egfr 70.8 >60 58 CBC Auto Diff 03/18/2014 White Blood Count 3.9 10^3/uL Low 4.8-10.8 Red Blood Count 4.14 10^6/uL 4.0-5.4 Hemoglobin 13.3 g/dL Low 14.0-18.0 Hematocrit 38 % Low 42-52 Mean Corpuscular Volume 93 fL 80-94 Mean Corpuscular Hemoglobin 32 pg High 27-31 Mean Corpuscular HGB Conc 35 g/dL 31-36 Red Cell Distribution Width 17 % High 10.5-15 Platelet Count 201 10^3/uL 150-450 Mean Platelet Volume 7 um3 Low 7.4-10.4 Abs Neutrophils 2.4 10^3/uL 1.5-7.7 Abs Lymphocytes 1.0 10^3/uL 1.0-4.8 Abs Monocytes 0.4 10^3/uL 0-0.8 Abs Eosinophils 0.1 10^3/uL 0-0.6 Abs Basophils 0 10^3/uL 0-0.2 Abs Nucleated RBC 0 10^3/uL Granulocyte % 60.2 % 38-83 Lymphocyte % 25.1 % 25-47 Monocyte % 10.4 % High 1-9 Eosinophil % 3.3 % 0-6 Basophil % 1.0 % 0-2 Nucleated Red Blood Cells % 0.1 Comp Metabolic Panel 03/18/2014 Sodium 138 mmol/L 133-145 Potassium 4.3 mmol/L 3.5-5.0 Chloride 105 mmol/L 101-111 Co2 Carbon Dioxide 25 mmol/L 22-32 Anion Gap 8 mmol/L 2-11 Glucose 188 mg/dL High 70-100 Blood Urea Nitrogen 23 mg/dL 6-24 Creatinine 1.08 mg/dL 0.67-1.17 BUN/Creatinine Ratio 21.3 High 8-20 Calcium 9.3 mg/dL 8.6-10.3 Total Protein 6.5 g/dL 6.4-8.9 Albumin 4.6 g/dL 3.2-5.2 Globulin 1.9 g/dL Low 2-4 Albumin/Globulin Ratio 2.4 1-3 Total Bilirubin 0.70 mg/dL 0.2-1.0 Alkaline Phosphatase 70 U/L 34-104 Alt 30 U/L 7-52 Ast 18 U/L 13-39 Egfr Non- 67.0 >60 Egfr 86.2 >60 59 CBC Auto Diff 03/07/2014 White Blood Count 3.2 10^3/uL Low 4.8-10.8 Red Blood Count 4.11 10^6/uL 4.0-5.4 Hemoglobin 13.0 g/dL Low 14.0-18.0 Hematocrit 38 % Low 42-52 Mean Corpuscular Volume 92 fL 80-94 Mean Corpuscular Hemoglobin 32 pg High 27-31 Mean Corpuscular HGB Conc 34 g/dL 31-36 Red Cell Distribution Width 17 % High 10.5-15 Platelet Count 155 10^3/uL 150-450 Mean Platelet Volume 8 um3 7.4-10.4 Abs Neutrophils 2.0 10^3/uL 1.5-7.7 Abs Lymphocytes 0.9 10^3/uL Low 1.0-4.8 Abs Monocytes 0.1 10^3/uL 0-0.8 Abs Eosinophils 0.1 10^3/uL 0-0.6 Abs Basophils 0 10^3/uL 0-0.2 Abs Nucleated RBC 0.01 10^3/uL Granulocyte % 64.0 % 38-83 Lymphocyte % 28.3 % 25-47 Monocyte % 4.0 % 1-9 Eosinophil % 3.0 % 0-6 Basophil % 0.7 % 0-2 Nucleated Red Blood Cells % 0.2 Comp Metabolic Panel 03/07/2014 Sodium 135 mmol/L 133-145 Potassium 4.0 mmol/L 3.5-5.0 60 Chloride 101 mmol/L 101-111 Co2 Carbon Dioxide 25 mmol/L 22-32 Anion Gap 9 mmol/L 2-11 Glucose 170 mg/dL High 70-100 Blood Urea Nitrogen 19 mg/dL 6-24 Creatinine 0.92 mg/dL 0.67-1.17 BUN/Creatinine Ratio 20.7 High 8-20 Calcium 9.2 mg/dL 8.6-10.3 Total Protein 6.0 g/dL Low 6.4-8.9 Albumin 4.7 g/dL 3.2-5.2 Globulin 1.3 g/dL Low 2-4 Albumin/Globulin Ratio 3.6 High 1-3 Total Bilirubin 1.00 mg/dL 0.2-1.0 Alkaline Phosphatase 62 U/L 34-104 Alt 27 U/L 7-52 Ast 16 U/L 13-39 Egfr Non- 80.6 >60 Egfr 103.7 >60 61 CBC Auto Diff 02/25/2014 White Blood Count 3.8 10^3/uL Low 4.8-10.8 Red Blood Count 4.31 10^6/uL 4.0-5.4 Hemoglobin 13.5 g/dL Low 14.0-18.0 Hematocrit 40 % Low 42-52 Mean Corpuscular Volume 94 fL 80-94 Mean Corpuscular Hemoglobin 31 pg 27-31 Mean Corpuscular HGB Conc 34 g/dL 31-36 Red Cell Distribution Width 18 % High 10.5-15 Platelet Count 174 10^3/uL 150-450 Mean Platelet Volume 8 um3 7.4-10.4 Abs Neutrophils 2.3 10^3/uL 1.5-7.7 Abs Lymphocytes 1.1 10^3/uL 1.0-4.8 Abs Monocytes 0.2 10^3/uL 0-0.8 Abs Eosinophils 0.2 10^3/uL 0-0.6 Abs Basophils 0 10^3/uL 0-0.2 Abs Nucleated RBC 0.01 10^3/uL Granulocyte % 59.5 % 38-83 Lymphocyte % 28.8 % 25-47 Monocyte % 6.2 % 1-9 Eosinophil % 4.8 % 0-6 Basophil % 0.7 % 0-2 Nucleated Red Blood Cells % 0.2 Comp Metabolic Panel 02/25/2014 Sodium 137 mmol/L 133-145 Potassium 3.7 mmol/L 3.5-5.0 62 Chloride 104 mmol/L 101-111 Co2 Carbon Dioxide 25 mmol/L 22-32 Anion Gap 8 mmol/L 2-11 Glucose 287 mg/dL High 70-100 Blood Urea Nitrogen 18 mg/dL 6-24 Creatinine 0.97 mg/dL 0.67-1.17 BUN/Creatinine Ratio 18.6 8-20 Calcium 9.2 mg/dL 8.6-10.3 Total Protein 6.2 g/dL Low 6.4-8.9 Albumin 4.8 g/dL 3.2-5.2 Globulin 1.4 g/dL Low 2-4 Albumin/Globulin Ratio 3.4 High 1-3 Total Bilirubin 0.60 mg/dL 0.2-1.0 Alkaline Phosphatase 76 U/L 34-104 Alt 32 U/L 7-52 Ast 21 U/L 13-39 Egfr Non- 75.9 >60 Egfr 97.6 >60 63 CBC Auto Diff 02/14/2014 White Blood Count 3.7 10^3/uL Low 4.8-10.8 Red Blood Count 4.32 10^6/uL 4.0-5.4 Hemoglobin 13.6 g/dL Low 14.0-18.0 Hematocrit 40 % Low 42-52 Mean Corpuscular Volume 92 fL 80-94 Mean Corpuscular Hemoglobin 32 pg High 27-31 Mean Corpuscular HGB Conc 34 g/dL 31-36 Red Cell Distribution Width 18 % High 10.5-15 Platelet Count 159 10^3/uL 150-450 Mean Platelet Volume 8 um3 7.4-10.4 Abs Neutrophils 2.2 10^3/uL 1.5-7.7 Abs Lymphocytes 1.2 10^3/uL 1.0-4.8 Abs Monocytes 0.1 10^3/uL 0-0.8 Abs Eosinophils 0.1 10^3/uL 0-0.6 Abs Basophils 0 10^3/uL 0-0.2 Abs Nucleated RBC 0.01 10^3/uL Granulocyte % 59.2 % 38-83 Lymphocyte % 33.3 % 25-47 Monocyte % 3.7 % 1-9 Eosinophil % 3.3 % 0-6 Basophil % 0.5 % 0-2 Nucleated Red Blood Cells % 0.4 Comp Metabolic Panel 02/14/2014 Sodium 138 mmol/L 133-145 Potassium 4.6 mmol/L 3.5-5.0 Chloride 102 mmol/L 101-111 Co2 Carbon Dioxide 28 mmol/L 22-32 Anion Gap 8 mmol/L 2-11 Glucose 161 mg/dL High 70-100 Blood Urea Nitrogen 21 mg/dL 6-24 Creatinine 1.05 mg/dL 0.67-1.17 BUN/Creatinine Ratio 20.0 8-20 Calcium 9.5 mg/dL 8.6-10.3 Total Protein 6.1 g/dL Low 6.4-8.9 Albumin 4.7 g/dL 3.2-5.2 Globulin 1.4 g/dL Low 2-4 Albumin/Globulin Ratio 3.4 High 1-3 Total Bilirubin 0.70 mg/dL 0.2-1.0 Alkaline Phosphatase 65 U/L 34-104 Alt 29 U/L 7-52 Ast 17 U/L 13-39 Egfr Non- 69.2 >60 Egfr 89.0 >60 64 CBC Auto Diff 02/04/2014 White Blood Count 4.5 10^3/uL Low 4.8-10.8 Red Blood Count 4.29 10^6/uL 4.0-5.4 Hemoglobin 13.4 g/dL Low 14.0-18.0 Hematocrit 39 % Low 42-52 Mean Corpuscular Volume 91 fL 80-94 Mean Corpuscular Hemoglobin 31 pg 27-31 Mean Corpuscular HGB Conc 34 g/dL 31-36 Red Cell Distribution Width 17 % High 10.5-15 Platelet Count 197 10^3/uL 150-450 Mean Platelet Volume 7 um3 Low 7.4-10.4 Abs Neutrophils 2.4 10^3/uL 1.5-7.7 Abs Lymphocytes 1.6 10^3/uL 1.0-4.8 Abs Monocytes 0.3 10^3/uL 0-0.8 Abs Eosinophils 0.2 10^3/uL 0-0.6 Abs Basophils 0 10^3/uL 0-0.2 Granulocyte % 53.4 % 38-83 Lymphocyte % 35.0 % 25-47 Monocyte % 7.0 % 1-9 Eosinophil % 3.8 % 0-6 Basophil % 0.8 % 0-2 Comp Metabolic Panel 01/26/2014 Sodium 139 mmol/L 133-145 Potassium 3.9 mmol/L 3.7-5.6 Chloride 106 mmol/L 101-111 Co2 Carbon Dioxide 25 mmol/L 22-32 Anion Gap 8 mmol/L 2-11 Glucose 181 mg/dL High 70-100 Blood Urea Nitrogen 17 mg/dL 6-24 Creatinine 0.92 mg/dL 0.67-1.17 BUN/Creatinine Ratio 18.5 8-20 Calcium 9.2 mg/dL 8.6-10.3 Total Protein 6.0 g/dL Low 6.4-8.9 Albumin 4.3 g/dL 3.2-5.2 Globulin 1.7 g/dL Low 2-4 Albumin/Globulin Ratio 2.5 1-3 Total Bilirubin 0.80 mg/dL 0.2-1.0 Alkaline Phosphatase 68 U/L 34-104 Alt 27 U/L 7-52 Ast 21 U/L 13-39 Egfr Non- 80.6 >60 Egfr 103.7 >60 65 CBC With Manual Diff 01/26/2014 White Blood Count 3.3 10^3/uL Low 4.8- 10.8 Red Blood Count 4.11 10^6/uL 4.0-5.4 Hemoglobin 12.7 g/dL Low 14.0-18.0 Hematocrit 37 % Low 42-52 Mean Corpuscular Volume 90 fL 80-94 Mean Corpuscular Hemoglobin 31 pg 27-31 Mean Corpuscular HGB Conc 34 g/dL 31-36 Red Cell Distribution Width 16 % High 10.5-15 Platelet Count 149 10^3/uL Low 150-450 Mean Platelet Volume 8 um3 7.4-10.4 Abs Neutrophils 1.7 10^3/uL 1.5-7.7 Abs Lymphocytes 1.3 10^3/uL 1.0-4.8 Abs Monocytes 0.1 10^3/uL 0-0.8 Abs Eosinophils 0.1 10^3/uL 0-0.6 Abs Basophils 0 10^3/uL 0-0.2 Abs Nucleated RBC 0.01 10^3/uL Neutrophil % 52 % 38-83 Lymphocytes % 40 % 25-47 Monocytes % 2 % 0-13 Eosinophils % 1 % 0-6 Reactive Lymph % 5 % 0-6 RBC Morphology Normal Normal Comp Metabolic Panel 01/14/2014 Sodium 139 mmol/L 133-145 Potassium 3.8 mmol/L 3.7-5.6 Chloride 107 mmol/L 101-111 Co2 Carbon Dioxide 25 mmol/L 22-32 Anion Gap 7 mmol/L 2-11 Glucose 160 mg/dL High 70-100 Blood Urea Nitrogen 20 mg/dL 6-24 Creatinine 1.10 mg/dL 0.67-1.17 BUN/Creatinine Ratio 18.2 8-20 Calcium 9.2 mg/dL 8.6-10.3 Total Protein 6.1 g/dL Low 6.4-8.9 Albumin 4.3 g/dL 3.2-5.2 Globulin 1.8 g/dL Low 2-4 Albumin/Globulin Ratio 2.4 1-3 Total Bilirubin 0.60 mg/dL 0.2-1.0 Alkaline Phosphatase 69 U/L 34-104 Alt 31 U/L 7-52 Ast 23 U/L 13-39 Egfr Non- 65.6 >60 Egfr 84.4 >60 66 Laboratory test 01/14/2014 Hemoglobin A1c 6.8 % High Less than 6.0 67 finding Oncology CBC Auto Diff 01/14/2014 White Blood Count 5.5 10^3/uL 4.8-10.8 Red Blood Count 4.10 10^6/uL 4.0-5.4 Hemoglobin 12.6 g/dL Low 14.0-18.0 Hematocrit 38 % Low 42-52 Mean Corpuscular Volume 93 fL 80-94 Mean Corpuscular Hemoglobin 31 pg 27-31 Mean Corpuscular HGB Conc 33 g/dL 31-36 Red Cell Distribution Width 16 % High 10.5-15 Platelet Count 163 10^3/uL 150-450 Mean Platelet Volume 7 um3 Low 7.4-10.4 Abs Neutrophils 2.4 10^3/uL 1.5-7.7 Abs Lymphocytes 2.5 10^3/uL 1.0-4.8 Abs Monocytes 0.4 10^3/uL 0-0.8 Abs Eosinophils 0.1 10^3/uL 0-0.6 Abs Basophils 0.1 10^3/uL 0-0.2 Manual Differential 01/14/2014 Neutrophil % 46 % 38-83 Lymphocytes % 42 % 25-47 Monocytes % 9 % 0-13 Eosinophils % 1 % 0-6 Reactive Lymph % 2 % 0-6 RBC Morphology Normal Normal Comp Metabolic Panel 12/24/2013 Sodium 138 mmol/L 133-145 Potassium 4.0 mmol/L 3.7-5.6 Chloride 103 mmol/L 101-111 Co2 Carbon Dioxide 26 mmol/L 22-32 Anion Gap 9 mmol/L 2-11 Glucose 248 mg/dL High 70-100 Blood Urea Nitrogen 19 mg/dL 6-24 Creatinine 0.93 mg/dL 0.67-1.17 BUN/Creatinine Ratio 20.4 High 8-20 Calcium 9.0 mg/dL 8.6-10.3 Total Protein 5.9 g/dL Low 6.4-8.9 Albumin 4.4 g/dL 3.2-5.2 Globulin 1.5 g/dL Low 2-4 Albumin/Globulin Ratio 2.9 1-3 Total Bilirubin 0.60 mg/dL 0.2-1.0 Alkaline Phosphatase 69 U/L 34-104 Alt 23 U/L 7-52 Ast 20 U/L 13-39 Egfr Non- 79.6 >60 Egfr 102.4 >60 68 Laboratory test finding 12/24/2013 Magnesium 2.0 mg/dL 1.9-2.7 Oncology CBC Auto Diff 12/24/2013 White Blood Count 9.4 10^3/uL 4.8-10.8 Red Blood Count 4.23 10^6/uL 4.0-5.4 Hemoglobin 12.8 g/dL Low 14.0-18.0 Hematocrit 39 % Low 42-52 Mean Corpuscular Volume 93 fL 80-94 Mean Corpuscular Hemoglobin 30 pg 27-31 Mean Corpuscular HGB Conc 33 g/dL 31-36 Red Cell Distribution Width 14 % 10.5-15 Platelet Count 172 10^3/uL 150-450 Mean Platelet Volume 7 um3 Low 7.4-10.4 Abs Neutrophils 2.9 10^3/uL 1.5-7.7 Abs Lymphocytes 5.9 10^3/uL High 1.0-4.8 Abs Monocytes 0.4 10^3/uL 0-0.8 Abs Eosinophils 0.2 10^3/uL 0-0.6 Abs Basophils 0 10^3/uL 0-0.2 Manual Differential 12/24/2013 Neutrophil % 35 % Low 38-83 Lymphocytes % 56 % High 25-47 Monocytes % 5 % 0-13 Eosinophils % 3 % 0-6 Basophil % 1 % 0-2 RBC Morphology Normal Normal Comp Metabolic Panel 12/15/2013 Sodium 135 mmol/L 133-145 Potassium 3.7 mmol/L 3.7-5.6 Chloride 103 mmol/L 101-111 Co2 Carbon Dioxide 25 mmol/L 22-32 Anion Gap 7 mmol/L 2-11 Glucose 279 mg/dL High 70-100 Blood Urea Nitrogen 13 mg/dL 6-24 Creatinine 0.96 mg/dL 0.67-1.17 BUN/Creatinine Ratio 13.5 8-20 Calcium 8.6 mg/dL 8.6-10.3 Total Protein 5.4 g/dL Low 6.4-8.9 Albumin 4.0 g/dL 3.2-5.2 Globulin 1.4 g/dL Low 2-4 Albumin/Globulin Ratio 2.9 1-3 Total Bilirubin 0.80 mg/dL 0.2-1.0 Alkaline Phosphatase 71 U/L 34-104 Alt 17 U/L 7-52 Ast 15 U/L 13-39 Egfr Non- 76.8 >60 Egfr 98.7 >60 69 CBC With Manual Diff 12/15/2013 White Blood Count 7.2 10^3/uL 4.8-10.8 Red Blood Count 4.02 10^6/uL 4.0-5.4 Hemoglobin 12.8 g/dL Low 14.0-18.0 Hematocrit 37 % Low 42-52 Mean Corpuscular Volume 93 fL 80-94 Mean Corpuscular Hemoglobin 32 pg High 27-31 Mean Corpuscular HGB Conc 34 g/dL 31-36 Red Cell Distribution Width 15 % 10.5-15 Platelet Count 147 10^3/uL Low 150-450 Mean Platelet Volume 8 um3 7.4-10.4 Abs Neutrophils 2.1 10^3/uL 1.5-7.7 Abs Lymphocytes 4.8 10^3/uL 1.0-4.8 Abs Monocytes 0.2 10^3/uL 0-0.8 Abs Eosinophils 0.1 10^3/uL 0-0.6 Abs Basophils 0 10^3/uL 0-0.2 Abs Nucleated RBC 0 10^3/uL Neutrophil % 26 % Low 38-83 Lymphocytes % 68 % High 25-47 Monocytes % 3 % 0-13 Eosinophils % 3 % 0-6 Hypochromasia 1+ Comments (SEE NOTE) 70 Laboratory test finding 12/03/2013 LDH 139 U/L Low 140-271 Oncology CBC Auto Diff 12/03/2013 White Blood Count 32.9 10^3/uL High 4.8- 10.8 Red Blood Count 4.50 10^6/uL 4.0-5.4 Hemoglobin 14.4 g/dL 14.0-18.0 Hematocrit 43 % 42-52 Mean Corpuscular Volume 95 fL High 80-94 Mean Corpuscular Hemoglobin 32 pg High 27-31 Mean Corpuscular HGB Conc 34 g/dL 31-36 Red Cell Distribution Width 14 % 10.5-15 Platelet Count 148 10^3/uL Low 150-450 Mean Platelet Volume 8 um3 7.4-10.4 Abs Neutrophils 4.5 10^3/uL 1.5-7.7 Abs Lymphocytes 25.9 10^3/uL High 1.0-4.8 Abs Monocytes 2.1 10^3/uL High 0-0.8 Abs Eosinophils 0.4 10^3/uL 0-0.6 Abs Basophils 0 10^3/uL 0-0.2 Manual Differential 12/03/2013 Neutrophil % 14 % Low 38-83 Lymphocytes % 85 % High 25-47 Eosinophils % 1 % 0-6 RBC Morphology Normal Normal Comp Metabolic Panel 12/03/2013 Sodium 140 mmol/L 133-145 Potassium 3.8 mmol/L 3.7-5.6 Chloride 106 mmol/L 101-111 Co2 Carbon Dioxide 25 mmol/L 22-32 Anion Gap 9 mmol/L 2-11 Glucose 133 mg/dL High 70-100 Blood Urea Nitrogen 20 mg/dL 6-24 Creatinine 0.87 mg/dL 0.67-1.17 BUN/Creatinine Ratio 23.0 High 8-20 Calcium 9.4 mg/dL 8.6-10.3 Total Protein 6.2 g/dL Low 6.4-8.9 Albumin 4.3 g/dL 3.2-5.2 Globulin 1.9 g/dL Low 2-4 Albumin/Globulin Ratio 2.3 1-3 Total Bilirubin 0.60 mg/dL 0.2-1.0 Alkaline Phosphatase 76 U/L 34-104 Alt 16 U/L 7-52 Ast 16 U/L 13-39 Egfr Non- 86.0 >60 Egfr 110.6 >60 71 Oncology CBC Auto Diff 11/18/2013 White Blood Count 44.6 10^3/uL High 4.8- 10.8 72 Red Blood Count 4.28 10^6/uL 4.0-5.4 72 Hemoglobin 13.9 g/dL Low 14.0-18.0 72 Hematocrit 41 % Low 42-52 72 Mean Corpuscular Volume 96 fL High 80-94 72 Mean Corpuscular Hemoglobin 33 pg High 27-31 72 Mean Corpuscular HGB Conc 34 g/dL 31-36 72 Red Cell Distribution Width 14 % 10.5-15 72 Platelet Count 130 10^3/uL Low 150-450 72 Mean Platelet Volume 7 um3 Low 7.4-10.4 72 Abs Neutrophils 3.7 10^3/uL 1.5-7.7 72 Abs Lymphocytes 37.5 10^3/uL High 1.0-4.8 72 Abs Monocytes 2.7 10^3/uL High 0-0.8 72 Abs Eosinophils 0.5 10^3/uL 0-0.6 72 Abs Basophils 0.2 10^3/uL 0-0.2 72 Manual Differential 11/18/2013 Neutrophil % 11 % Low 38-83 72 Lymphocytes % 88 % High 25-47 72 Monocytes % 1 % 0-13 72 RBC Morphology Normal Normal 72 Oncology CBC Auto Diff 11/11/2013 White Blood Count 73.1 10^3/uL High 4.8- 10.8 73, 74 Red Blood Count 4.63 10^6/uL 4.0-5.4 73 Hemoglobin 14.8 g/dL 14.0-18.0 73 Hematocrit 45 % 42-52 73 Mean Corpuscular Volume 98 fL High 80-94 73 Mean Corpuscular Hemoglobin 32 pg High 27-31 73 Mean Corpuscular HGB Conc 33 g/dL 31-36 73 Red Cell Distribution Width 14 % 10.5-15 73 Platelet Count 116 10^3/uL Low 150-450 73 Mean Platelet Volume 7 um3 Low 7.4-10.4 73 Abs Neutrophils 5.2 10^3/uL 1.5-7.7 73 Abs Lymphocytes 60.9 10^3/uL High 1.0-4.8 73 Abs Monocytes 6.6 10^3/uL High 0-0.8 73 Abs Eosinophils 0.4 10^3/uL 0-0.6 73 Abs Basophils 0 10^3/uL 0-0.2 73 Manual Differential 11/11/2013 Neutrophil % 8 % Low 38-83 73 Lymphocytes % 90 % High 25-47 73 Monocytes % 1 % 0-13 73 Reactive Lymph % 1 % 0-6 73 RBC Morphology Normal Normal 73 Comments (SEE NOTE) 73, 75 Oncology CBC Auto Diff 11/04/2013 White Blood Count 77.6 10^3/uL High 4.8- 10.8 76 Red Blood Count 4.36 10^6/uL 4.0-5.4 Hemoglobin 14.4 g/dL 14.0-18.0 Hematocrit 43 % 42-52 Mean Corpuscular Volume 98 fL High 80-94 Mean Corpuscular Hemoglobin 33 pg High 27-31 Mean Corpuscular HGB Conc 34 g/dL 31-36 Red Cell Distribution Width 14 % 10.5-15 Platelet Count 84 10^3/uL Low 150-450 Mean Platelet Volume 8 um3 7.4-10.4 Abs Neutrophils 4.7 10^3/uL 1.5-7.7 Abs Lymphocytes 70.0 10^3/uL High 1.0-4.8 Abs Monocytes 2.4 10^3/uL High 0-0.8 Abs Eosinophils 0.4 10^3/uL 0-0.6 Abs Basophils 0.1 10^3/uL 0-0.2 Manual Differential 11/04/2013 Neutrophil % 7 % Low 38-83 Lymphocytes % 86 % High 25-47 77 Monocytes % 4 % 0-13 Reactive Lymph % 3 % 0-6 Macrocytosis 1+ Oncology CBC Auto Diff 10/29/2013 White Blood Count 86.2 10^3/uL High 4.8- 10.8 78, 79 Red Blood Count 4.06 10^6/uL 4.0-5.4 78 Hemoglobin 13.9 g/dL Low 14.0-18.0 78 Hematocrit 40 % Low 42-52 78 Mean Corpuscular Volume 99 fL High 80-94 78 Mean Corpuscular Hemoglobin 34 pg High 27-31 78 Mean Corpuscular HGB Conc 35 g/dL 31-36 78 Red Cell Distribution Width 14 % 10.5-15 78 Platelet Count 90 10^3/uL Low 150-450 78 Mean Platelet Volume 8 um3 7.4-10.4 78 Abs Neutrophils 2.8 10^3/uL 1.5-7.7 78 Abs Lymphocytes 78.1 10^3/uL High 1.0-4.8 78 Abs Monocytes 4.9 10^3/uL High 0-0.8 78 Abs Eosinophils 0.3 10^3/uL 0-0.6 78 Abs Basophils 0.1 10^3/uL 0-0.2 78 Manual Differential 10/29/2013 Neutrophil % 3 % Low 38-83 78 Lymphocytes % 94 % High 25-47 78, 80 Monocytes % 2 % 0-13 78 Reactive Lymph % 1 % 0-6 78 RBC Morphology Normal Normal 78 Comments (SEE NOTE) 78, 81 Comp Metabolic Panel 10/29/2013 Sodium 138 mmol/L 133-145 78 Potassium 4.3 mmol/L 3.7-5.6 78 Chloride 104 mmol/L 101-111 78 Co2 Carbon Dioxide 27 mmol/L 22-32 78 Anion Gap 7 mmol/L 2-11 78 Glucose 120 mg/dL High 70-100 78 Blood Urea Nitrogen 22 mg/dL 6-24 78 Creatinine 1.01 mg/dL 0.67-1.17 78 BUN/Creatinine Ratio 21.8 High 8-20 78 Calcium 9.5 mg/dL 8.6-10.3 78 Total Protein 6.1 g/dL Low 6.4-8.9 78 Albumin 4.4 g/dL 3.2-5.2 78 Globulin 1.7 g/dL Low 2-4 78 Albumin/Globulin Ratio 2.6 1-3 78 Total Bilirubin 0.60 mg/dL 0.2-1.0 78 Alkaline Phosphatase 78 U/L 34-104 78 Alt 17 U/L 7-52 78 Ast 17 U/L 13-39 78 Egfr Non- 72.4 >60 78 Egfr 93.1 >60 78, 82 Laboratory test finding 10/29/2013 Uric Acid 8.4 mg/dL High 4.4-7.6 78 LDH TNP U/L 140-271 78, 83 CBC Auto Diff 09/23/2013 White Blood Count 92.8 10^3/uL High 4.8-10.8 84 Red Blood Count 3.97 10^6/uL Low 4.0-5.4 Hemoglobin 13.6 g/dL Low 14.0-18.0 Hematocrit 40 % Low 42-52 Mean Corpuscular Volume 101 fL High 80-94 Mean Corpuscular Hemoglobin 34 pg High 27-31 Mean Corpuscular HGB Conc 34 g/dL 31-36 Red Cell Distribution Width 16 % High 10.5-15 Platelet Count 84 10^3/uL Low 150-450 Mean Platelet Volume 8 um3 7.4-10.4 Abs Neutrophils 3.3 10^3/uL 1.5-7.7 Abs Lymphocytes 87.3 10^3/uL High 1.0-4.8 Abs Monocytes 1.8 10^3/uL High 0-0.8 Abs Eosinophils 0.4 10^3/uL 0-0.6 Abs Basophils 0.1 10^3/uL 0-0.2 Abs Nucleated RBC 0.37 10^3/uL Comp Metabolic Panel 09/23/2013 Sodium 141 mmol/L 133-145 Potassium 4.3 mmol/L 3.7-5.6 Chloride 107 mmol/L 101-111 Co2 Carbon Dioxide 28 mmol/L 22-32 Anion Gap 6 mmol/L 2-11 Glucose 124 mg/dL High 70-100 Blood Urea Nitrogen 23 mg/dL 6-24 Creatinine 1.14 mg/dL 0.67-1.17 BUN/Creatinine Ratio 20.2 High 8-20 Calcium 9.2 mg/dL 8.6-10.3 Total Protein 6.2 g/dL Low 6.4-8.9 Albumin 4.5 g/dL 3.2-5.2 Globulin 1.7 g/dL Low 2-4 Albumin/Globulin Ratio 2.6 1-3 Total Bilirubin 0.80 mg/dL 0.2-1.0 Alkaline Phosphatase 63 U/L 34-104 Alt 22 U/L 7-52 Ast 19 U/L 13-39 Egfr Non- 63.1 >60 Egfr 81.2 >60 85 Lipid Profile (Trig/Chol/HDL) 09/23/2013 Triglycerides 85 mg/dL 86 Cholesterol 125 mg/dL 87 HDL Cholesterol 31.2 mg/dL 88 LDL Cholesterol 77 mg/dL 89 Laboratory test finding 09/23/2013 Uric Acid 8.4 mg/dL High 4.4-7.6 TSH (Thyroid Stimulating Horm) 8.05 IU/mL High 0.34-5.60 Manual Differential 09/23/2013 Neutrophil % 3 % Low 38-83 Lymphocytes % 97 % High 25-47 90 RBC Morphology Normal Normal Comments (SEE NOTE) 91 Laboratory test finding 09/23/2013 LDH 153 U/L 140-271 Urine Microalbumin Random 09/23/2013 Ur Microalbumin (mg/L) 5.0 mg/dL &lt ;30 92 Urine Creatinine 111.72 mg/dL Urine Microalbumin/Creatinine 4.4 Less Than 31 Immunoglobulins Serum Quant 09/23/2013 Immunoglobulin G 282 mg/dL 767 - 1590 93 Immunoglobulin M <5 mg/dL 37 - 286 Immunoglobulin A 37 mg/dL 61 - 356 Laboratory test finding 09/23/2013 Hemoglobin A1c 6.8 % High Less than 94 6.0 Immunoglobulins Serum 08/09/2013 Immunoglobulin G 449 mg/dL 767 - 1590 95, 96 Quant Immunoglobulin M <5 mg/dL 37 - 286 95 Immunoglobulin A 40 mg/dL 61 - 356 95 Manual Differential 08/09/2013 Neutrophil % 3 % Low 38-83 95 Lymphocytes % 96 % High 25-47 95 Monocytes % 1 % 0-13 95 RBC Morphology Normal Normal 95 Comments (SEE NOTE) 95, 97 CBC Auto Diff 08/09/2013 White Blood Count 119.0 10^3/uL High 4.8-10.8 95 , 98 Red Blood Count 4.31 10^6/uL 4.0-5.4 95 Hemoglobin 14.1 g/dL 14.0-18.0 95 Hematocrit 44 % 42-52 95 Mean Corpuscular Volume 102 fL High 80-94 95 Mean Corpuscular Hemoglobin 33 pg High 27-31 95 Mean Corpuscular HGB Conc 32 g/dL 31-36 95 Red Cell Distribution Width 16 % High 10.5-15 95 Platelet Count 94 10^3/uL Low 150-450 95, 99 Mean Platelet Volume 9 um3 7.4-10.4 95 Abs Neutrophils 5.4 10^3/uL 1.5-7.7 95 Abs Lymphocytes 111.3 10^3/uL High 1.0-4.8 95 Abs Monocytes 1.7 10^3/uL High 0-0.8 95 Abs Eosinophils 0.5 10^3/uL 0-0.6 95 Abs Basophils 0.1 10^3/uL 0-0.2 95 Laboratory test finding 08/09/2013 LDH 157 U/L 140-271 95 Comp Metabolic Panel 08/09/2013 Sodium 139 mmol/L 133-145 95 Potassium 4.3 mmol/L 3.7-5.6 95 Chloride 105 mmol/L 101-111 95 Co2 Carbon Dioxide 28 mmol/L 22-32 95 Anion Gap 6 mmol/L 2-11 95 Glucose 93 mg/dL 70-100 95 Blood Urea Nitrogen 26 mg/dL High 6-24 95 Creatinine 0.95 mg/dL 0.67-1.17 95 BUN/Creatinine Ratio 27.4 High 8-20 95 Calcium 9.3 mg/dL 8.6-10.3 95 Total Protein 6.6 g/dL 6.4-8.9 95 Albumin 5.0 g/dL 3.2-5.2 95 Globulin 1.6 g/dL Low 2-4 95 Albumin/Globulin Ratio 3.1 High 1-3 95 Total Bilirubin 0.60 mg/dL 0.2-1.0 95 Alkaline Phosphatase 73 U/L 34-104 95 Alt 20 U/L 7-52 95 Ast 22 U/L 13-39 95 Egfr Non- 77.9 >60 95 Egfr 100.2 >60 95, 100 Manual Differential 06/26/2013 Neutrophil % 5 % Low 38-83 Lymphocytes % 90 % High 25-47 101 Reactive Lymph % 5 % 0-6 RBC Morphology Normal Normal CBC Auto Diff 06/26/2013 White Blood Count 193.5 10^3/uL High 4.8-10.8 Red Blood Count 3.66 10^6/uL Low 4.0-5.4 Hemoglobin 12.0 g/dL Low 14.0-18.0 Hematocrit 36 % Low 42-52 Mean Corpuscular Volume 98 fL High 80-94 Mean Corpuscular Hemoglobin 33 pg High 27-31 Mean Corpuscular HGB Conc 34 g/dL 31-36 Red Cell Distribution Width 15 % 10.5-15 Platelet Count 96 10^3/uL Low 150-450 Mean Platelet Volume 9 um3 7.4-10.4 Abs Neutrophils 10.0 10^3/uL High 1.5-7.7 Abs Lymphocytes 179.6 10^3/uL High 1.0-4.8 Abs Monocytes 3.5 10^3/uL High 0-0.8 Abs Eosinophils 0.3 10^3/uL 0-0.6 Abs Basophils 0.1 10^3/uL 0-0.2 Abs Nucleated RBC 0.60 10^3/uL Laboratory test 06/26/2013 B Type Natriuretic 67 pg/mL 102 finding Peptide Inr/Protime 06/26/2013 Inr 1.19 High 0.85-1.06 Laboratory test 06/26/2013 Troponin I 0.01 ng/mL <0.03 103 finding Comp Metabolic Panel 06/26/2013 Sodium 134 mmol/L 133-145 Potassium 3.9 mmol/L 3.7-5.6 Chloride 104 mmol/L 101-111 Co2 Carbon Dioxide 23 mmol/L 22-32 Anion Gap 7 mmol/L 2-11 Glucose 201 mg/dL High 70-100 Blood Urea Nitrogen 18 mg/dL 6-24 Creatinine 1.09 mg/dL 0.67-1.17 BUN/Creatinine Ratio 16.5 8-20 Calcium 8.3 mg/dL Low 8.6-10.3 Total Protein 5.5 g/dL Low 6.4-8.9 Albumin 3.7 g/dL 3.2-5.2 Globulin 1.8 g/dL Low 2-4 Albumin/Globulin Ratio 2.1 1-3 Total Bilirubin 0.80 mg/dL 0.2-1.0 Alkaline Phosphatase 61 U/L 34-104 Alt 21 U/L 7-52 Ast 26 U/L 13-39 Egfr Non- 66.5 >60 Egfr 85.5 >60 104 1 Variant LY 2 Because ethnic data is not always readily available, this report includes an eGFR for both -Americans and non- Americans. The National Kidney Disease Education Program (NKDEP) does not endorse the use of the MDRD equation for patients that are not between the ages of 18 and 70, are , have extremes of body size, muscle mass, or nutritional status, or are non- or non-. According to the National Kidney Foundation, irrespective of diagnosis, the stage of the disease is based on the level of kidney function: Stage Description GFR(mL/min/1.73 m(2)) 1 Kidney damage with normal or decreased GFR 90 2 Kidney damage with mild decrease in GFR 60-89 3 Moderate decrease in GFR 30-59 4 Severe decrease in GFR 15-29 5 Kidney failure <15 (or dialysis) 3 Because ethnic data is not always readily available, this report includes an eGFR for both -Americans and non- Americans. The National Kidney Disease Education Program (NKDEP) does not endorse the use of the MDRD equation for patients that are not between the ages of 18 and 70, are , have extremes of body size, muscle mass, or nutritional status, or are non- or non-. According to the National Kidney Foundation, irrespective of diagnosis, the stage of the disease is based on the level of kidney function: Stage Description GFR(mL/min/1.73 m(2)) 1 Kidney damage with normal or decreased GFR 90 2 Kidney damage with mild decrease in GFR 60-89 3 Moderate decrease in GFR 30-59 4 Severe decrease in GFR 15-29 5 Kidney failure <15 (or dialysis) 4 Unable to calculate due to low microalbumin 5 Because ethnic data is not always readily available, this report includes an eGFR for both -Americans and non- Americans. The National Kidney Disease Education Program (NKDEP) does not endorse the use of the MDRD equation for patients that are not between the ages of 18 and 70, are , have extremes of body size, muscle mass, or nutritional status, or are non- or non-. According to the National Kidney Foundation, irrespective of diagnosis, the stage of the disease is based on the level of kidney function: Stage Description GFR(mL/min/1.73 m(2)) 1 Kidney damage with normal or decreased GFR 90 2 Kidney damage with mild decrease in GFR 60-89 3 Moderate decrease in GFR 30-59 4 Severe decrease in GFR 15-29 5 Kidney failure <15 (or dialysis) 6 Desirable: <150 Borderline High: 150-199 High: 200-499 Very High: >500 7 Desirable: <200 Borderline High: 200-239 High: >239 8 Low: <40 Desirable: 40-60 High: >60 9 Desirable: <100 Near Optimal: 100-129 Borderline High: 130-159 High: 160-189 Very High: >189 10 Desirable <150 Borderline high 150-199 High 200-499 Very High >500 11 Desirable <200 Borderline high 200-239 High >239 12 Low <40 Desirable: 40-60 High: >60 13 Desirable: <100 mg/dL Near Optimal: 100-129 mg/dL Borderline High: 130-159 mg/dL High: 160-189 mg/dL Very High: >189 mg/dL 14 Because ethnic data is not always readily available, this report includes an eGFR for both -Americans and non- Americans. The National Kidney Disease Education Program (NKDEP) does not endorse the use of the MDRD equation for patients that are not between the ages of 18 and 70, are , have extremes of body size, muscle mass, or nutritional status, or are non- or non-. According to the National Kidney Foundation, irrespective of diagnosis, the stage of the disease is based on the level of kidney function: Stage Description GFR(mL/min/1.73 m(2)) 1 Kidney damage with normal or decreased GFR 90 2 Kidney damage with mild decrease in GFR 60-89 3 Moderate decrease in GFR 30-59 4 Severe decrease in GFR 15-29 5 Kidney failure <15 (or dialysis) 15 Therapeutic target for the treatment of diabetes Mellitus patients is <7% HBA1C, and in selective patients <6.0%.Please refer to [place] [employer] Diabetic care guidelines for further information. 16 Either of the two following conditions would be consistent with a normal response to Streptococcus pneumoniae vaccination: Antibody concentrations greater than or equal to the reference value for at least 50% of serotypes in either a pre- or post-vaccination sample. Antibody concentrations increased by 2-fold or greater for at least 50% of serotypes when comparing the pre- to the post-vaccination results. Optimal cut-offs (reference values) were derived by measuring serotype-specific IgG antibody levels in an adult cohort of 100 healthy individuals (previously unvaccinated) before and after pneumococcal vaccination and identifying the antibody level for each serotype that included the largest number of individuals with a negative response (below cut-off) pre-vaccination and a positive response (above cut-off) post-vaccination. ADDITIONAL INFORMATION All 23 serotypes assessed by this assay are included in the Pneumovax 23 vaccine. IgG antibody concentrations following Pneumovax 23 administration are a reflection of an individual's humoral immune response to polysaccharide antigens. Serotypes 1, 3, 4, 5, 6A (6), 14, 19F (19), 23F (23), 6B (26), 7F (51), 18C (56), 19A (57) and 9V (68) are included in the Prevnar-13 conjugate vaccine. Antibody concentrations following Prevnar-13 administration are a reflection of an individual's response to protein-conjugated antigens. Serotypes 2, 8, 9N (9), 12F (12), 17F (17), 20, 22F (22), 10A (34), 11A (43), 15B (54) and 33F (70) are present only in the Pneumovax 23 vaccine and not in Prevnar-13. Responses to these 11 serotypes are a reflection of an individual's response to polysaccharide antigens. Serotype 6A is only present in Prevnar-13. This test was developed and its performance characteristics determined by [facility] in a manner consistent with CLIA requirements. This test has not been cleared or approved by the U.S. Food and Drug Administration. Test Performed by: [address] [id number] 17 SEE RESULT BELOW Name: SERGIO RODRIGUEZ : [address]: Yandel Chavez MD Acct: [id number] Unit: [id number] AGE: 75 Location: [place] [address] Re07/13/16 Dis: 07/14/16 SEX: M Status: DIS Margaret SPEC: [id number] CHACHA: 07/13/[address] [facility] [address]: Marky Szymanski MD REQ: [id number] RECD: 07/13/16 STATUS: MY [facility]AP[facility] DR: Porsha Hawkins MD _ SOURCE: BLOOD,VENO SPDES: ORDERED: Blood Cult Procedure Result Reported Site Aerobic Culture Bottle Final 07/18/16130 ML No Growth Day 5 Anaerobic Culture Bottle Final 07/18/16130 ML No Growth Day 5 * ML - MAIN LAB ([facility]) . END OF REPORT * ML=Testing performed at Main Lab DEPARTMENT OF PATHOLOGY, [address] [place] [id number] Jamari Lara M.D. Director [facility] # [id number] 18 Because ethnic data is not always readily available, this report includes an eGFR for both -Americans and non- Americans. The National Kidney Disease Education Program (NKDEP) does not endorse the use of the MDRD equation for patients that are not between the ages of 18 and 70, are , have extremes of body size, muscle mass, or nutritional status, or are non- or non-. According to the National Kidney Foundation, irrespective of diagnosis, the stage of the disease is based on the level of kidney function: Stage Description GFR(mL/min/1.73 m(2)) 1 Kidney damage with normal or decreased GFR 90 2 Kidney damage with mild decrease in GFR 60-89 3 Moderate decrease in GFR 30-59 4 Severe decrease in GFR 15-29 5 Kidney failure <15 (or dialysis) 19 99th percentile=0.04 ng/mL Troponin results at [facility] and [facility] are not interchangeable. 20 [facility] Severe Sepsis and Septic Shock Management Bundle Measure requires all lactic acids initially measuring >2.0 mmol/L be repeated. 21 Interior Paneler: [id number] OSVALDO Allen 22 ADDITIONAL INFORMATION This test has been modified from the web marketing strategist's instructions. Its performance characteristics were determined by [facility] in a manner consistent with CLIA requirements. This test has not been cleared or approved by the U.S. Food and Drug Administration. Test Performed by: [facility] [place] [address] Document Preparer Microfilming: Gianni Quiroz II, M.D., Ph.D. 23 Test Performed by: [place] [address] Document Preparer Microfilming: Gianni Quiroz II, M.D., Ph.D. 24 Unable to calculate due to low microalbumin 25 Test Performed by: [place] [address] Document Preparer Microfilming: Gianni Quiroz II, M.D., Ph.D. 26 Desirable <150 Borderline high 150-199 High 200-499 Very High >500 27 Desirable <200 Borderline high 200-239 High >239 28 Low <40 Desirable: 40-60 High: >60 29 Desirable: <100 mg/dL Near Optimal: 100-129 mg/dL Borderline High: 130-159 mg/dL High: 160-189 mg/dL Very High: >189 mg/dL 30 Because ethnic data is not always readily available, this report includes an eGFR for both -Americans and non- Americans. The National Kidney Disease Education Program (NKDEP) does not endorse the use of the MDRD equation for patients that are not between the ages of 18 and 70, are , have extremes of body size, muscle mass, or nutritional status, or are non- or non-. According to the National Kidney Foundation, irrespective of diagnosis, the stage of the disease is based on the level of kidney function: Stage Description GFR(mL/min/1.73 m(2)) 1 Kidney damage with normal or decreased GFR 90 2 Kidney damage with mild decrease in GFR 60-89 3 Moderate decrease in GFR 30-59 4 Severe decrease in GFR 15-29 5 Kidney failure <15 (or dialysis) 31 Test Performed by: [place] [address] Document Preparer Microfilming: Gianni Quiroz II, M.D., Ph.D. 32 Desirable <150 Borderline high 150-199 High 200-499 Very High >500 33 Desirable <200 Borderline high 200-239 High >239 34 Low <40 Desirable: 40-60 High: >60 35 Desirable: <100 mg/dL Near Optimal: 100-129 mg/dL Borderline High: 130-159 mg/dL High: 160-189 mg/dL Very High: >189 mg/dL 36 Because ethnic data is not always readily available, this report includes an eGFR for both -Americans and non- Americans. The National Kidney Disease Education Program (NKDEP) does not endorse the use of the MDRD equation for patients that are not between the ages of 18 and 70, are , have extremes of body size, muscle mass, or nutritional status, or are non- or non-. According to the National Kidney Foundation, irrespective of diagnosis, the stage of the disease is based on the level of kidney function: Stage Description GFR(mL/min/1.73 m(2)) 1 Kidney damage with normal or decreased GFR 90 2 Kidney damage with mild decrease in GFR 60-89 3 Moderate decrease in GFR 30-59 4 Severe decrease in GFR 15-29 5 Kidney failure <15 (or dialysis) 37 Therapeutic target for the treatment of diabetes Mellitus patients is <7% HBA1C, and in selective patients <6.0%.Please refer to [place] [employer] Diabetic care guidelines for further information. 38 Test Performed by: [place] [address] Document Preparer Microfilming: Gianni Quiroz II, M.D., Ph.D. 39 Test Performed by: [place] [address] Document Preparer Microfilming: Gianni Quiroz II, M.D., Ph.D. 40 Therapeutic target for the treatment of diabetes Mellitus patients is <7% HBA1C, and in selective patients <6.0%.Please refer to [place] [employer] Diabetic care guidelines for further information. 41 Because ethnic data is not always readily available, this report includes an eGFR for both -Americans and non- Americans. The National Kidney Disease Education Program (NKDEP) does not endorse the use of the MDRD equation for patients that are not between the ages of 18 and 70, are , have extremes of body size, muscle mass, or nutritional status, or are non- or non-. According to the National Kidney Foundation, irrespective of diagnosis, the stage of the disease is based on the level of kidney function: Stage Description GFR(mL/min/1.73 m(2)) 1 Kidney damage with normal or decreased GFR 90 2 Kidney damage with mild decrease in GFR 60-89 3 Moderate decrease in GFR 30-59 4 Severe decrease in GFR 15-29 5 Kidney failure <15 (or dialysis) 42 Therapeutic target for the treatment of diabetes Mellitus patients is <7% HBA1C, and in selective patients <6.0%.Please refer to [place] [employer] Diabetic care guidelines for further information. 43 Unable to calculate due to low microalbumin 44 Because ethnic data is not always readily available, this report includes an eGFR for both -Americans and non- Americans. The National Kidney Disease Education Program (NKDEP) does not endorse the use of the MDRD equation for patients that are not between the ages of 18 and 70, are , have extremes of body size, muscle mass, or nutritional status, or are non- or non-. According to the National Kidney Foundation, irrespective of diagnosis, the stage of the disease is based on the level of kidney function: Stage Description GFR(mL/min/1.73 m(2)) 1 Kidney damage with normal or decreased GFR 90 2 Kidney damage with mild decrease in GFR 60-89 3 Moderate decrease in GFR 30-59 4 Severe decrease in GFR 15-29 5 Kidney failure <15 (or dialysis) 45 FASTING 10 HOUR 46 FASTING 10 HOUR 47 Desirable <150 Borderline high 150-199 High 200-499 Very High >500 48 Desirable <200 Borderline high 200-239 High >239 49 Low <40 Desirable: 40-60 High: >60 50 Desirable <100 Near Optimal 100-129 Borderline high 130-159 High 160-189 Very High >189 51 Therapeutic target for the treatment of diabetes Mellitus patients is <7% HBA1C, and in selective patients <6.0%.Please refer to [place] [employer] Diabetic care guidelines for further information. 52 Critical Result LACT:3.1 Called to [id number] at: 14:51:33 by:[id number] Read back by:[email or web address] [id number] RUN DATE: 04/11/14 [facility] LAB LIVE PAGE 1 RUN TIME: [address] [place] [id number] Specimen Inquiry Name: SERGIO RODRIGUEZ : [address]: Herb Mcclelland MD Acct: [id number] Unit: [id number] AGE: 73 Location: [facility] Re04/06/14 SEX: M Status: REG RCR SPEC: [id number] CHACHA: 04/06/[address] [facility] [address]: Herb Mcclelland MD REQ: [id number] RECD: 04/06/14 STATUS: MY STAPLETON DR: Tyler Bo MD _ SOURCE: BLOOD,VENO SPDESC: ORDERED: Blood Cult Procedure Result Verified Site Aerobic Culture Bottle Final 04/11/14- 1435 ML No Growth Day 5 Anaerobic Culture Bottle Final 04/11/14- 1435 ML No Growth Day 5 END OF REPORT * ML=Testing performed at Main Lab DEPARTMENT OF PATHOLOGY, [facility] [place], [place] [address] Jamari Lara M.D. Director [facility] # [id number] 54 Because ethnic data is not always readily available, this report includes an eGFR for both -Americans and non- Americans. The National Kidney Disease Education Program (NKDEP) does not endorse the use of the MDRD equation for patients that are not between the ages of 18 and 70, are , have extremes of body size, muscle mass, or nutritional status, or are non- or non-. According to the National Kidney Foundation, irrespective of diagnosis, the stage of the disease is based on the level of kidney function: Stage Description GFR(mL/min/1.73 m(2)) 1 Kidney damage with normal or decreased GFR 90 2 Kidney damage with mild decrease in GFR 60-89 3 Moderate decrease in GFR 30-59 4 Severe decrease in GFR 15-29 5 Kidney failure <15 (or dialysis) 55 RUN DATE: 04/06/14 [facility] LAB LIVE PAGE 1 RUN TIME: [address] [facility] [employer] [place], [place] [address] Specimen Inquiry Name: SERGIO RODRIGUEZ : [address]: Herb Mcclelland MD Acct: [id number] Unit: [id number] AGE: 73 Location: [facility]: 04/06/14 SEX: M Status: REG RCR SPEC: [id number] CHACHA: 04/06/[address] [facility] [address]: Herb Mcclelland MD REQ: [id number] RECD: 04/06/14 STATUS: MY STAPLETON DR: Tyler Bo MD _ SOURCE: [facility]: ORDERED: Rapid Flu A B COMMENTS: GREEN SWAB TOP STUFFED INTO M5 TUBE Procedure Result Verified Site Rapid Influenza A B Antigen Final 04/06/14- 1452 ML Organism 1 Negative Influenza A B Antigen testing by enzyme immunoassay. Cell culture testing can be performed to confirm negative test results and to assist in detecting other viruses that can produce similar clinical symptoms. Please notify Microbiology Lab if further testing is desired. END OF REPORT * ML=Testing performed at Main Lab DEPARTMENT OF PATHOLOGY, [facility] [place], [place] [address] Jamari Lara M.D. Director [facility] # [id number] RUN DATE: 04/11/14 [facility] LAB LIVE PAGE 1 RUN TIME: [address] [facility] [employer] [place], [place] [address] Specimen Inquiry Name: SERGIO RODRIGUEZ : [address]: Herb Mcclelland MD Acct: [id number] Unit: [id number] AGE: 73 Location: [facility] Re04/06/14 SEX: M Status: MARIS CONSTANTINOR SPEC: [id number] CHACHA: 04/06/14-[address] [facility] [address]: Herb Mcclelland MD REQ: [id number] RECD: 04/06/14-1425 STATUS: MY STAPLETON DR: Tyler Bo MD _ SOURCE: BLOOD,VENO SPDESC: ORDERED: Blood Cult Procedure Result Verified Site Aerobic Culture Bottle Final 04/11/14- 1426 ML No Growth Day 5 Anaerobic Culture Bottle Final 04/11/14- 1426 ML No Growth Day 5 END OF REPORT * ML=Testing performed at Main Lab DEPARTMENT OF PATHOLOGY, [address] [place] [address] Jamari Lara M.D. Director [facility] # [id number] 57 Therapeutic target for the treatment of diabetes Mellitus patients is <7% HBA1C, and in selective patients <6.0%.Please refer to [place] [employer] Diabetic care guidelines for further information. 58 Because ethnic data is not always readily available, this report includes an eGFR for both -Americans and non- Americans. The National Kidney Disease Education Program (NKDEP) does not endorse the use of the MDRD equation for patients that are not between the ages of 18 and 70, are , have extremes of body size, muscle mass, or nutritional status, or are non- or non-. According to the National Kidney Foundation, irrespective of diagnosis, the stage of the disease is based on the level of kidney function: Stage Description GFR(mL/min/1.73 m(2)) 1 Kidney damage with normal or decreased GFR 90 2 Kidney damage with mild decrease in GFR 60-89 3 Moderate decrease in GFR 30-59 4 Severe decrease in GFR 15-29 5 Kidney failure <15 (or dialysis) 59 Because ethnic data is not always readily available, this report includes an eGFR for both -Americans and non- Americans. The National Kidney Disease Education Program (NKDEP) does not endorse the use of the MDRD equation for patients that are not between the ages of 18 and 70, are , have extremes of body size, muscle mass, or nutritional status, or are non- or non-. According to the National Kidney Foundation, irrespective of diagnosis, the stage of the disease is based on the level of kidney function: Stage Description GFR(mL/min/1.73 m(2)) 1 Kidney damage with normal or decreased GFR 90 2 Kidney damage with mild decrease in GFR 60-89 3 Moderate decrease in GFR 30-59 4 Severe decrease in GFR 15-29 5 Kidney failure <15 (or dialysis) 60 Potassium reference range changed effective 02/13/14 61 Because ethnic data is not always readily available, this report includes an eGFR for both -Americans and non- Americans. The National Kidney Disease Education Program (NKDEP) does not endorse the use of the MDRD equation for patients that are not between the ages of 18 and 70, are , have extremes of body size, muscle mass, or nutritional status, or are non- or non-. According to the National Kidney Foundation, irrespective of diagnosis, the stage of the disease is based on the level of kidney function: Stage Description GFR(mL/min/1.73 m(2)) 1 Kidney damage with normal or decreased GFR 90 2 Kidney damage with mild decrease in GFR 60-89 3 Moderate decrease in GFR 30-59 4 Severe decrease in GFR 15-29 5 Kidney failure <15 (or dialysis) 62 Potassium reference range changed effective 02/13/14 63 Because ethnic data is not always readily available, this report includes an eGFR for both -Americans and non- Americans. The National Kidney Disease Education Program (NKDEP) does not endorse the use of the MDRD equation for patients that are not between the ages of 18 and 70, are , have extremes of body size, muscle mass, or nutritional status, or are non- or non-. According to the National Kidney Foundation, irrespective of diagnosis, the stage of the disease is based on the level of kidney function: Stage Description GFR(mL/min/1.73 m(2)) 1 Kidney damage with normal or decreased GFR 90 2 Kidney damage with mild decrease in GFR 60-89 3 Moderate decrease in GFR 30-59 4 Severe decrease in GFR 15-29 5 Kidney failure <15 (or dialysis) 64 Because ethnic data is not always readily available, this report includes an eGFR for both -Americans and non- Americans. The National Kidney Disease Education Program (NKDEP) does not endorse the use of the MDRD equation for patients that are not between the ages of 18 and 70, are , have extremes of body size, muscle mass, or nutritional status, or are non- or non-. According to the National Kidney Foundation, irrespective of diagnosis, the stage of the disease is based on the level of kidney function: Stage Description GFR(mL/min/1.73 m(2)) 1 Kidney damage with normal or decreased GFR 90 2 Kidney damage with mild decrease in GFR 60-89 3 Moderate decrease in GFR 30-59 4 Severe decrease in GFR 15-29 5 Kidney failure <15 (or dialysis) 65 Because ethnic data is not always readily available, this report includes an eGFR for both -Americans and non- Americans. The National Kidney Disease Education Program (NKDEP) does not endorse the use of the MDRD equation for patients that are not between the ages of 18 and 70, are , have extremes of body size, muscle mass, or nutritional status, or are non- or non-. According to the National Kidney Foundation, irrespective of diagnosis, the stage of the disease is based on the level of kidney function: Stage Description GFR(mL/min/1.73 m(2)) 1 Kidney damage with normal or decreased GFR 90 2 Kidney damage with mild decrease in GFR 60-89 3 Moderate decrease in GFR 30-59 4 Severe decrease in GFR 15-29 5 Kidney failure <15 (or dialysis) 66 Because ethnic data is not always readily available, this report includes an eGFR for both -Americans and non- Americans. The National Kidney Disease Education Program (NKDEP) does not endorse the use of the MDRD equation for patients that are not between the ages of 18 and 70, are , have extremes of body size, muscle mass, or nutritional status, or are non- or non-. According to the National Kidney Foundation, irrespective of diagnosis, the stage of the disease is based on the level of kidney function: Stage Description GFR(mL/min/1.73 m(2)) 1 Kidney damage with normal or decreased GFR 90 2 Kidney damage with mild decrease in GFR 60-89 3 Moderate decrease in GFR 30-59 4 Severe decrease in GFR 15-29 5 Kidney failure <15 (or dialysis) 67 Therapeutic target for the treatment of diabetes Mellitus patients is <7% HBA1C, and in selective patients <6.0%.Please refer to [place] [employer] Diabetic care guidelines for further information. 68 Because ethnic data is not always readily available, this report includes an eGFR for both -Americans and non- Americans. The National Kidney Disease Education Program (NKDEP) does not endorse the use of the MDRD equation for patients that are not between the ages of 18 and 70, are , have extremes of body size, muscle mass, or nutritional status, or are non- or non-. According to the National Kidney Foundation, irrespective of diagnosis, the stage of the disease is based on the level of kidney function: Stage Description GFR(mL/min/1.73 m(2)) 1 Kidney damage with normal or decreased GFR 90 2 Kidney damage with mild decrease in GFR 60-89 3 Moderate decrease in GFR 30-59 4 Severe decrease in GFR 15-29 5 Kidney failure <15 (or dialysis) 69 Because ethnic data is not always readily available, this report includes an eGFR for both -Americans and non- Americans. The National Kidney Disease Education Program (NKDEP) does not endorse the use of the MDRD equation for patients that are not between the ages of 18 and 70, are , have extremes of body size, muscle mass, or nutritional status, or are non- or non-. According to the National Kidney Foundation, irrespective of diagnosis, the stage of the disease is based on the level of kidney function: Stage Description GFR(mL/min/1.73 m(2)) 1 Kidney damage with normal or decreased GFR 90 2 Kidney damage with mild decrease in GFR 60-89 3 Moderate decrease in GFR 30-59 4 Severe decrease in GFR 15-29 5 Kidney failure <15 (or dialysis) 70 Smudge cells present 71 Because ethnic data is not always readily available, this report includes an eGFR for both -Americans and non- Americans. The National Kidney Disease Education Program (NKDEP) does not endorse the use of the MDRD equation for patients that are not between the ages of 18 and 70, are , have extremes of body size, muscle mass, or nutritional status, or are non- or non-. According to the National Kidney Foundation, irrespective of diagnosis, the stage of the disease is based on the level of kidney function: Stage Description GFR(mL/min/1.73 m(2)) 1 Kidney damage with normal or decreased GFR 90 2 Kidney damage with mild decrease in GFR 60-89 3 Moderate decrease in GFR 30-59 4 Severe decrease in GFR 15-29 5 Kidney failure <15 (or dialysis) 72 Verbal to [id number] by [email or web address] at 1042 on 11/18/13.~Results read back accurately. 73 Verbal to [id number] by [id number] at 0921 on 11/11/13.~Results read back accurately. 74 Consistent with previous results. 75 Smudge cells present 76 Verbal to FLOYD Allen by at 0924 on 11/04/13. Results read back accurately. 77 Verbal to FLOYD by [id number] at 0959 on 11/04/13. Results read back accurately. 78 Verbal to [id number] by [id number] at 0849 on 10/29/13.~Results read back accurately. 79 Consistent with previous results. 80 Verbal to [id number] by [id number] at 0932 on 10/29/13. Results read back accurately. 81 SMUDGE CELLS 82 Because ethnic data is not always readily available, this report includes an eGFR for both -Americans and non- Americans. The National Kidney Disease Education Program (NKDEP) does not endorse the use of the MDRD equation for patients that are not between the ages of 18 and 70, are , have extremes of body size, muscle mass, or nutritional status, or are non- or non-. According to the National Kidney Foundation, irrespective of diagnosis, the stage of the disease is based on the level of kidney function: Stage Description GFR(mL/min/1.73 m(2)) 1 Kidney damage with normal or decreased GFR 90 2 Kidney damage with mild decrease in GFR 60-89 3 Moderate decrease in GFR 30-59 4 Severe decrease in GFR 15-29 5 Kidney failure <15 (or dialysis) 83 SPECIMEN HEMOLYZED. VERBAL TO STEPH BY REYNA, 1150, 10/29/13. Unable to report test result due to hemolysis. --- 10/29/13 1152 --- LDH previously reported as: Test not performed U/L SPECIMEN HEMOLYZED. VERBAL TO STEPH BY REYNA, 1150, 10/29/13. 84 Consistent with previous results. Verbal to INDIGO ALFORD by [id number] at 1001 on 09/23/13. Results read back accurately. 85 Because ethnic data is not always readily available, this report includes an eGFR for both -Americans and non- Americans. The National Kidney Disease Education Program (NKDEP) does not endorse the use of the MDRD equation for patients that are not between the ages of 18 and 70, are , have extremes of body size, muscle mass, or nutritional status, or are non- or non-. According to the National Kidney Foundation, irrespective of diagnosis, the stage of the disease is based on the level of kidney function: Stage Description GFR(mL/min/1.73 m(2)) 1 Kidney damage with normal or decreased GFR 90 2 Kidney damage with mild decrease in GFR 60-89 3 Moderate decrease in GFR 30-59 4 Severe decrease in GFR 15-29 5 Kidney failure <15 (or dialysis) 86 Desirable <150 Borderline high 150-199 High 200-499 Very High >500 87 Desirable <200 Borderline high 200-239 High >239 88 Low <40 Desirable: 40-60 High: >60 89 Desirable <100 Near Optimal 100-129 Borderline high 130-159 High 160-189 Very High >189 90 Verbal to [id number] by [id number] at 1054 on 09/23/13. Results read back accurately. 91 Smudge cells present 92 Microalbuminuria in a random sample is defined as: Microalbumin/Creatinine ratio of 30-299 ug/mg. 93 Test Performed by: [facility] [address] [place] [address] Document Preparer Microfilming: Theo Choi III, M.D. 94 Therapeutic target for the treatment of diabetes Mellitus patients is <7% HBA1C, and in selective patients <6.0%.Please refer to [place] [employer] Diabetic care guidelines for further information. 95 Verbal to [id number] by [id number] at 1150 on 08/09/13.~Results read back accurately. 96 Test Performed by: [place] [address] [place] [address] Document Preparer Microfilming: Theo Choi III, M.D. 97 Smudge cells present 98 Consistent with previous results. 99 Platelet count confirmed by smear estimate. 100 Because ethnic data is not always readily available, this report includes an eGFR for both -Americans and non- Americans. The National Kidney Disease Education Program (NKDEP) does not endorse the use of the MDRD equation for patients that are not between the ages of 18 and 70, are , have extremes of body size, muscle mass, or nutritional status, or are non- or non-. According to the National Kidney Foundation, irrespective of diagnosis, the stage of the disease is based on the level of kidney function: Stage Description GFR(mL/min/1.73 m(2)) 1 Kidney damage with normal or decreased GFR 90 2 Kidney damage with mild decrease in GFR 60-89 3 Moderate decrease in GFR 30-59 4 Severe decrease in GFR 15-29 5 Kidney failure <15 (or dialysis) 101 Verbal to [id number] by at 1509 on 06/26/13. Results read back accurately. 102 >100 to <200 pg/mL: likely compensated congestive heart failure (CHF) 200 to 400 pg/mL: likely moderate CHF >400 pg/mL: likely moderate to severe CHF [place] [facility] 103 Reference Range and Interpretation: TnI (ng/mL) Interpretation Less Than 0.03 ng/mL Not supportive of diagnosis of CT 0.03 - 0.50 ng/mL Indeterminate: suggest serial studies if clinically indicated. Greater than 0.5 ng/mL Consistent with diagnosis of CT 104 Because ethnic data is not always readily available, this report includes an eGFR for both -Americans and non- Americans. The National Kidney Disease Education Program (NKDEP) does not endorse the use of the MDRD equation for patients that are not between the ages of 18 and 70, are , have extremes of body size, muscle mass, or nutritional status, or are non- or non-. According to the National Kidney Foundation, irrespective of diagnosis, the stage of the disease is based on the level of kidney function: Stage Description GFR(mL/min/1.73 m(2)) 1 Kidney damage with normal or decreased GFR 90 2 Kidney damage with mild decrease in GFR 60-89 3 Moderate decrease in GFR 30-59 4 Severe decrease in GFR 15-29 5 Kidney failure <15 (or dialysis) Procedures Date CPT Code Description Status 06/12/2017 24628 Inject Tendon Sheath Or Ligament Aponeurosis Eg Plantar Completed Fascia 03/20/2017 Diabetic Foot Exam Completed 03/18/2017 33070 Excise Benign Lesion 2.1-3CM Trunk/Arm/Leg Completed 02/27/2017 Diabetic Retinal Eye Exam Completed 02/26/2017 Diabetic Retinal Eye Exam Completed 01/20/2017 61263 Inject Tendon Sheath Or Ligament Aponeurosis Eg Plantar Completed Fascia 01/20/2017 64623 Inject Tendon Sheath Or Ligament Aponeurosis Eg Plantar Completed Fascia 08/21/2016 85320 Inject Tendon Sheath Or Ligament Aponeurosis Eg Plantar Completed Fascia 03/12/2016 81123 Carpal Tunnel Release Completed 03/12/2016 68894 Carpal Tunnel Release Completed 02/21/2016 Diabetic Retinal Eye Exam Completed 02/07/2016 34422 Inject Tendon Sheath Or Ligament Aponeurosis Eg Plantar Completed Fascia 01/10/2016 15648 ECHO Transthoracic, Real-Time 2D With Doppler And Color Completed Flow 06/29/201557896 Inject Tendon Sheath Or Ligament Aponeurosis Eg Plantar Completed Fascia 06/29/201524306 Inject Tendon Sheath Or Ligament Aponeurosis Eg Plantar Completed Fascia 03/31/2015 27798 Removal Skin Tags Up To 15 Completed 02/16/2015 Diabetic Retinal Eye Exam Completed 05/31/2014 68277 Bronchospasm Provocation Evalu Completed 04/28/201468044 Inject Tendon Sheath Or Ligament Aponeurosis Eg Plantar Completed Fascia 04/28/2014 80381 Pulmonary Function><Bronchodil Completed 04/28/2014 05683 Plethysmography Determination Lung Volumes & Per Completed Airway Resist 04/28/2014 20124 Diffusing Capacity Completed 02/03/2014 Diabetic Retinal Eye Exam Completed 02/19/2013 32349 EKG Tracing & Interpretation Completed 02/03/2013 75060 Stress Test Completed 02/03/2013 84656 Myocardial Perfusion Imaging Tomographic (Spect) Completed Multiple Studies 01/02/2012 94762 Polysomnography Sleep Staging 4+ Parameters W/Cpap Completed 12/30/2011 10917 Polysomnography Sleep Staging 4+ Parameters W/Cpap Completed 11/19/2011 18406 Polysomnography Sleep Staging 4+ Parameters W/Cpap Completed 05/01/2007 Colonoscopy Completed Encounters Type Date Location Provider CPT E/M Dx Office Visit 03/17/2017 12:10p [facility] Internal Medicine Porsha Hawkins M.D. 95976 L72.3 - [place] L02.219 Office Visit 02/18/2017 1:00p [facility] Internal Medicine Porsha Hawkins M.D. 71928 E11.9 - [place] I10 E03.9 E78.2 B02.9 I35.8 Office Visit 01/02/2017 11:00a [facility] Internal Medicine Juan J Wheeler, 35234 J06.9 - [place] Swift Office Visit 11/27/2016 10:50a [facility] Internal Medicine Porsha Hawkins M.D. 27569 L23.9 - [place] Office Visit 09/10/2016 10:00a [facility] Internal Medicine Nurse Visit C 71650 I10 - [place] Z23 Office Visit 09/05/2016 9:50a [facility] Internal Medicine Porsha Hawkins M.D. 95147 E11.9 - [place] I10 R00.2 E78.2 Office Visit 08/21/2016 9:45a [facility] Michelle Mari 11944 M65.341 Of Eron PIMENTELC Office Visit 07/30/2016 12:10p [facility] Internal Medicine Porsha Hawkins 62429 I10 - Kwame Swift J18.9 Office Visit 07/18/2016 10:10a [facility] Internal Medicine Porsha Hawkins M.D. 66353 J18.9 - [place] I10 Office Visit 07/14/2016 10:35a [facility], Yandel Chavez 96189 J18.9 Hospitalists [place]ison C91.10 E11.9 Z79.4 Office Visit 07/13/2016 10:35a [facility], Bowen Marquez M.D. 47722 J18.9 Hospitalists E11.9 C91.10 Z79.4 Office Visit 07/11/2016 12:45p [facility] Internal Medicine Porsha Hawkins M.D. 55526 J06.9 - [place] Office Visit 05/02/2016 10:10a [facility] Internal Medicine Porsha Hawkins M.D. 69787 E11.9 - [place] E78.2 M10.071 E03.9 L57.0 Office Visit 02/26/2016 9:20a [facility] Belinda Lerma 22058 M65.332 Of [place] Swift M65.342 G56.01 Office Visit 02/16/2016 10:40a [facility] [place] [address] R21 - [place] Office Visit 02/07/2016 9:30a [facility] Belinda Lerma 48036 M65.332 Of Eron Swift M65.342 G56.01 Office Visit 01/01/2016 8:30a [facility] Internal Medicine Porsha Hawkins M.D. 90489 E11.9 - [place] N52.1 R01.1 G47.00 Office Visit 08/29/2015 9:40a [facility] Internal Medicine Yamilka Elmore M.D. 63707 J02.9 - [place] Office Visit 06/29/2015 8:20a [facility] Internal Medicine Yamilka Elmore M.D. 82275 E11.9 - [place] E78.2 Z11.3 B35.8 Office Visit 06/29/2015 10:00a [facility] Belinda Lerma, 64115 M65.332 Of [place] Swift M65.342 Office Visit 05/29/2015 9:40a [facility] Internal Medicine Juan J Wheeler, 66377 J06.9 - [place] M.Sonny Office Visit 05/16/2015 3:40p [facility] Internal Medicine Yamilka Elmore M.D. 98855 E11.9 - [place] E03.8 F52.21 Office Visit 03/30/2015 8:20a [facility] Internal Medicine Yamilka Elmore M.D. 55279 E11.9 - [place] E03.8 E78.2 G47.33 Z23 Office Visit 02/24/2015 11:20a [facility] Internal Medicine Yamilka Elmore M.D. 58180 J01.90 - [place] Office Visit 01/25/2015 8:30a [facility] [place] [address] [address]11[address] F43.22 E11.65 Office Visit 11/24/2014 9:00a [facility] Paul Bazan M.D. 64135 786.2 Services Of [facility] 327.23 Office Visit 10/17/2014 9:30a [facility] Internal Medicine Tyler Bo, 44580 V70.0 - [address] M.Sonny,FACP 250.00 244.8 274.9 794.8 Office Visit 07/28/2014 10:00a [facility] Paul Bazan M.D. 45810 786.2 Services Of [facility] Office Visit 07/18/2014 9:30a [facility] Internal [place] [address] 272.2 244.8 244.9 Office Visit 07/04/2014 10:00a [facility] Paul Bazan M.D. 99928 466.0 Services Of [facility] 786.07 Office Visit 05/13/2014 10:00a [facility] Paul Bazan M.D. 06517 786.2 Services Of [facility] Office Visit 04/28/2014 1:30p [facility] Of Belinda Lerma, 23181 727.03 Eron Swift Office Visit 04/18/2014 2:00p [facility] Internal Medicine Tyler Bo, 09805 250.00 - Les Swift,FACP 244.8 786.2 Office Visit 09/30/2013 11:50a [facility] Internal Medicine Tyler Bo, 66033 693.0 - Les Swift,FACP 274.9 244.8 272.2 250.00 Office Visit 09/08/2013 11:40a [facility] Internal Medicine Juan J Wheeler, 80807 782.1 - Les Swift Office Visit 08/19/2013 9:30a [facility] Internal Medicine Tyler Bo, 25674 327.23 - Les Swift,FACP 204.10 272.0 592.0 244.8 250.02 Office Visit 07/08/2013 9:50a [facility] Internal Medicine Tyler Bo, 74088 485 - Les Swift,FACP 485 204.12 204.12 327.23 327.23 Office Visit 07/04/2013 2:15p [facility], Renee Hester, 31101 485 Hospitalists M.D. 204.12 518.81 995.91 Office Visit 07/03/2013 2:15p [facility], Renee Hester, 63057 485 Hospitalists M.D. 204.12 518.81 Office Visit 07/02/2013 2:14p [facility], Renee Hester, 94758 485 Hospitalists M.D. 204.12 518.81 Office Visit 07/02/2013 8:31a [facility] Mad[facility]aine Dennis 66878 486 Infectious Diseases Jamison Collier Office Visit 07/01/2013 8:25a [facility] Madelaine Dennis 21271 486 Infectious Diseases Jamison Collier Office Visit 07/01/2013 2:13p [facility] Renee Hester 10019 995.91 Assoc, Hospitalists [place] 485 204.12 518.81 Office Visit 06/30/2013 2:13p [facility], Renee Hester, 90352 995.91 Hospitalists [place] 485 204.12 518.81 Office Visit 06/30/2013 9:39a [facility] Kleber Dennis 07506 486 Infectious Diseases Jamison Collier Office Visit 06/29/2013 9:30a [facility] Kleber Dennis 71563 486 Infectious Diseases Jamison Collier Office Visit 06/29/2013 2:12p [facility] Renee Hester, 24302 995.91 Assoc, Hospitalists [place] 485 204.12 518.81 Office Visit 06/28/2013 2:11p [facility] Reneedonavan Hester, 68581 995.91 Hospitalists [place] 485 204.12 518.81 Office Visit 06/28/2013 9:23a [facility] Kleber Dennis 18331 486 Infectious Diseases Jamison Collier Office Visit 06/27/2013 [facility] 20910 995.91 Assoc, Hospitalists MTomasz 485 204.12 518.81 Office Visit 06/26/2013 2:08p [facility] Karen Hohn, 81181 995.91 Assoc, Hospitalists [place] 485 204.12 401.9 Office Visit 05/19/2013 9:10a [facility] Internal Medicine Tyler oB, 98738 493.10 - Les Swift,FACP 327.23 401.1 244.8 204.10 Office Visit 02/19/2013 8:30a [facility] [place] Andre, 54399 786.05 Brenna Swift 327.23 401.1 Office Visit 01/10/2012 2:26p Elly Sanabria 82824 327.23 [facility] [place] Office Visit 11/29/2011 8:38a Elly Sanabria 17497 327.23 [facility] [place] Office Visit 10/30/2011 11:53a [facility] Westley Sanabria, 63923 786.09 Disorder Center [place] Plan of Care Future Appointment(s):08/21/2017 10:10 am - Porsha Hawkins M.D. at [facility] Internal Medicine - Jntrtebqw27/28/2018 - Juan J Wheeler M.D.J06.9 Acute upper respiratory infection, unspecifiedComments:Rest, fluids, analgesics, cough suppressants, decongestants as needed advised
--- OUTSIDE RECORDS SUMMARY | 2017-07-10 15:26 | XMS REPORT ---
:1940 External Reference #:[id number] Author Organization [facility] Address [address] [address] Phone [phone] Care Team Providers Name Role Phone Porsha Hawkins MD Primary Care Physician Unavailable Payers Type Date Identification Numbers Payment Provider Subscriber Commercial Policy Number: [id number] Amer Prog/Todays Options Sergio Chavezy PayID: [id number] [address] [address] Attn: [place] [address] Problems Date Description Provider Status Onset: 02/19/2013 [...] With of cancer 02/26 Occupation Retired Occupation [id number] Work Status Not Currently Working retired Cigarette [...] Ordering Provider Sildenafil 06/03 Active Tablets 50mg 30tab as needed Porsha Citrate emilia Hawkins M.D. Basaglar 04/16 Active Solution 100Unit/M 30ml 35 units Porsha Kwikpen Pen-Inject L daily Jamison Hawkins Valsartan 09/05 Active Tablets 80mg 90tab 1/2 by mouth I10 Porsha /2017 s every day Jamison Hawkins Metformin HCL 12/31 Active Tablets 500mg 90tab once a day Porsha /2016 emilia Hawkins M.D. Levothyroxine 09/24 Active Tablets 125mcg 90tab take 1 Porsha Sodium s tablet by Shruthi, mouth once M.D. daily Lotrimin AF 06/28 Active Cream 1% 45uni apply to B35.8 ts area twice a martín Elmore.DKedar Folic Acid 03/30 Active Tablets 800mcg 1 by mouth Yamilka /2015 every day Jamison Elmore Pravachol 03/29 Active Tablets 80mg 90tab 1 by mouth s every day Jamison Hawkins Onetouch 02/17 Active Misc 100un test two Porsha Delica Lancets its times a day Shruthi, Jackie Fine 33G and as M.D. needed Pen Katy 01/26 Active Misc 31G X 8 100un use with Porsha mm its lantus subq Shruthi everyday M.D. dx:e11.9 Onetouch Ultra 10/17 Active Kit W/Device 1unit use daily to E11.9 Dev Stanley s test glucose Sonny Bo, dx 250.00 M.Sonny,FACP Onetouch Ultra 10/17 Active Strips 100un test up to E11.9 Porsha its 1-2 times a Hawkins, day or as M.D. directed Fluticasone 07/28 Active Suspension 50mcg/Act 1unit 1 sprays 786.2 Paul Bazan Propionate s intranasal M.D. bid every evening Bi-Pap Active Device as directed Unknown /0000 used during the night for severe sleep apnea Proair HFA Active Aerosol 108(90Bas 1unit 2 puffs by / e) s mouth every Ramírez, mcg/Act 4 hours as M.DKedar needed Claritin Active Tablets 10mg 90tab 1 by mouth Tyler s every day as Sonny Bo, needed M.DKedar,FACP Multi For Him Active Tablets 1 by mouth Unknown 50+ /0000 every day Zinc 00 Active Tablets 50mg one every Unknown /0000 day Ranitidine 00 Active Tablets 10mg 1 PO bid Unknown Acid Wheel Grinder /0000 Aspirin Ec Active Tablets DR 81mg 1 by mouth Unknown /0000 every day Allopurinol Active Tablets 300mg 90tab 1 by mouth Porsha / s every day Jamison Hawkins Levitra 05/06 Hx Tablets 20mg 14tab 1 by mouth s once daily Shruthi, - as needed M.D. 06/03 Amoxicillin/Cl 03/17 Hx Tablets 875-125mg 20tab 1 tab by L02.219 Porsha avulanate s mouth twice Hawkins, Potassium - a day M.D. 03/27 Prednisone 11/27 Hx Tablets 10mg QS take 2 tab L23.9 Porsha /2017 daily x 2 Hawkins, - days then [...] Tablets 100mg 20tab 1 by mouth Yamilka /2016 s as needed Ramírez, - once per day M.D. 12/31 Metformin HCL 06/28 Hx Tablets ER 500mg 60tab take 1 tab Porsha ER 24HR s twice a day Shruthi, - M.D. 12/31 Levitra 06/28 Hx Tablets 20mg 14tab 1 by mouth Z11.3 Porsha /2016 s once daily Shruthi, - as needed M.D. 09/05 Amoxicillin 05/29 Hx Capsules 500mg 30cap 1 three J06.9 Juan J E. s times a day Summer, - for 10 days M.D. 06/28 Metformin HCL 05/16 Hx Tablets 500mg 90tab 2 tab by Yamilka s mouth in the Elmore, - in the M.D. 12/31 morning and 1 tab in the at night Lantus 03/30 Hx Solution 100Unit/M 21uni inject 35 Porsha Gurwinder Pen-Inject L ts units under Shruthi, - the skin M.D. 04/16 daily at the same time at bedtime Pravachol 03/29 Hx Tablets 80mg 90tab 1 tablets po Gigante, s [facility] DO [place] - 03/30 Synthroid 03/28 Hx Tablets 125mcg 30tab 1 by mouth Yamilka s every day Sruthi Elmore M.D. 09/24 Amoxicillin 02/24 Hx Capsules 500mg 20cap 1 by mouth Glo.Fannie Prather s twice a day Sruthi Elmore M.D. 03/30 Guaifenesin 02/24 Hx Tablets 400mg 60tab 1 tab by Tete Prather s mouth every Ramírez, - 12hours as M.DKedar 03/30 needed congestion Onetouch Club 02/17 Hx Misc Tyler Kilgore Arsh Bridges - Jamison,[facility] 02/16 Onetouch 02/17 Hx 1Box As directed Mark Kilgore to test two Iraqi, [employer] - times a day 02/16 Lantus 01/25 Hx Solution 100Unit/M 20ml inject 20 E11.9 Mark L units under Iraqi, [employer] - the skin 01/25 daily at the same time at bedtime Lantus 01/25 Hx Solution 100Unit/M 20ml inject 25 Mark Purdy Pen-Inject L units under Iraqi, [employer] - the skin 03/30 daily at the same time at bedtime Synthroid 01/11 Hx Tablets 100mcg 90tab 1 by mouth Tyler Khan s every day Sonny Bo, - () Jamison,FACP 03/28 Levothyroxine 11/10 Hx Solution 100mcg 30uni 1 by mouth Tyler Garvey /2014 Rec ts every day Sruthi rBidges M.D.,[facility] 01/11 Levothyroxine 10/31 Hx Tablets 150mcg 90tab 1 by mouth Mark Sodium /2014 s every day SARAH BETH Wilkerson - 11/10 Onetouch 10/18 Hx Tyler Deljluis Lancets /2014 Sruthi Bridges M.D.,[facility] 02/17 Levothyroxine 10/17 Hx Tablets 125mcg 90tab 1 by mouth Tyler Sodium /2014 s every day Sruthi Bridges M.D.,[facility] 10/31 Metformin HCL 10/17 Hx Tablets ER 500mg 60tab take 1 tab Tyler ER /2014 24HR s twice a day Sruthi Bridges M.D.,[facility] 05/16 Valsartan 10/17 Hx Tablets 80mg 90tab 1 by mouth E11.9 Tyler s every day Sruthi Bridges M.D.,[facility] 07/18 Accupril 07/18 Hx Tablets 10mg 30tab 1 Tab By 250.00 Mark s Mouth Daily SARAH BETH Wilkerson - 10/17 Levothyroxine 07/12 Hx Tablets 150mcg 90tab 1 by mouth Woody Sodium s qd Martha, SARAHB ETH - 10/16 Robitussin 07/01 Hx Liquid 10-200mg/ takes as Unknown Cough & /2014 5ML directed Chest - Congestion DM 07/27 Levothyroxine 04/18 Hx Tablets 175mcg 90tab 1 by mouth 244.8 Woody Sodium s every other Martha [employer] - day 09/09 with 150mcg tab Synthroid 09/30 Hx Tablets 150mcg 90tab 1 by mouth 244.8 Tyler s every day Sruthi Bridges M.D.,[facility] 04/18 Clobetasol 09/13 Hx Cream 0.05% 30gm use Other Propionate sparingly on Ordering - affected Provider 04/15 areas twice daily for 2 weeks. Zinc 09/08 Hx Tablets 50mg every day /2013 - 09/30 Freestyle Lite 08/19 Hx Strips 100un test up to 4 250.00 Test its times a day Sruthi Bridges dx code: Jamison,[facility] 10/17 250.52 Prednisone 07/05 Hx Tablets 10mg 5 mg X 6 po Other ( daily Ordering - titrating Provider 09/08 down until finished. Omeprazole 07/[address] 20mg 90cap 1 by mouth s every day Sruthi Bridges M.D.,[facility] 09/08 Temazepam 07/05 Hx Capsules 15mg 30cap 1 by mouth Other s every night Ordering - at bedtime Provider 08/19 Atovaquone 07/05 Hx Tablets 750mg 14tab 1 po q 12 hr Other s x 7 days Ordering - Provider 08/19 Ceftin 07/05 Hx Tablets 250mg 6tabs by mouth twice a day Ordering - x 3 days Provider 07/08 Proair HFA 05/19 Hx Aerosol 108(90Bas 1unit 2 puffs po e) s q4h prn Sruthi Bridges mcg/Act Jamison,[facility] 07/06 Asmanex 30 05/19 Hx Aerosol 220mcg/In use 2 puffs [facility] Metered Doses /2013 h once daily Sruthi Bridges M.D.,[facility] 07/05 Diovan 05/19 Hx Tablets 160mg 45tab 1/2 tab po s qd Sruthi Bridges M.D.,[facility] 07/05 Allopurinol Hx Tablets 300mg 90tab 1 by mouth s every day Sruthi Bridges M.D.,[facility] 09/30 Aspirin Hx Tablets 81mg 1 po qd - 05/20 Singulair Hx Tablets 10mg 90tab 1 po qd / s - 07/05 Multivitamins Hx Capsules 30cap 1 capsule Unknown / s anthony;y - 07/[address] 1000mg 1 po qd - 07/05 Pravachol 00/00 Hx Tablets 80mg 90tab 1 tablets po Unknown /0000 s qhs - 09/30 Vitamin B 00/00 Hx Tablets 30tab 1 po qd Unknown Complex /0000 s - 07/05 Diovan 00/00 Hx Tablets 80mg 90tab 1 po qd Unknown /0000 s - 05/19 Zinc 00/00 Hx Tablets 50mg qd Unknown / - 07/05 Levothyroxine Hx Tablets 125mcg 30tab 1 po qd 244.8 Unknown Sodium /0000 s - 09/30 Asmanex 00/ Hx prn Unknown Inhaler /0000 - 05/19 Dulera 00 Hx Aerosol 100-5mcg/ 3mon 2 puff twice Unknown /0000 Act a day - 07/08 Multivitamin Hx Liquid Unknown & Mineral / - 09/30 Fish Oil Hx Capsules 1200mg 1 by mouth Unknown /0000 every day - 09/30 Vitamin B-6 Hx Tablets 100mg qd Unknown / - 09/30 Zinc 00 Hx Tablets 50mg every day Unknown / [...] /0000 x 6 weeks - 09/30 Betamethasone Hx Cream 0.05% Unknown Dipropionate /0000 - 04/15 Asmanex 120 00 Hx Aerosol 220mcg/In 1mont 2 puff twice Unknown Metered Doses /0000 h h a day - 06/12 Zyrtec Allergy 0000 Hx Tablets 10mg 1 by mouth Unknown /0000 every day - 08/28 Metformin HCL 00/00 Hx Tablets 500mg 60tab 1 by mouth Tyler /0000 s twice a day Sruthi Bridges M.D.,FACP 10/17 Dulera 00/00 Hx Aerosol 200-5mcg/ 2 puff twice Unknown /0000 Act a day X 3 - weeks then 07/[address]x [address] 10mg 1 by mouth Unknown /0000 twice a day - 12/31 Depomedrol Active Injection Belinda 40MG /0000 Jamison Lerma Medications Administered in Office Medication Date Status Form Strength Qnty SIG Indications Ordering Provider Depomedrol Administered Injection Michelle 40MG 017 Bitting, [facility] Depomedrol Administered Injection Michelle 40MG 017 Bitting, [facility] Depomedrol Administered Injection Michelle 40MG 017 Bitting, [facility] Depomedrol Administered Injection Belinda 40MG 016 Jamison Lerma Depomedrol Administered Injection Belinda 40MG 016 Jamison Lerma Depomedrol Administered Injection Belinda 80MG 015 Jamison Lerma Inj, Administered Injection Maico Dennis Regadenoson, 013 Jamison Andre 0.1 MG Technetium TC Administered Injection Maico Dennis 99M 013 Jamison Andre Tetrofosmin, Per Unit Dose Up To 40 Millicuries Immunizations CPT Code Status Date Vaccine Reaction Lot # [id number] Given 01/21/2017 Influenza Virus Vaccine, Quadrivalent, Split, Preservative Free 28767 Given 09/10/2016 Tdap - Tetanus/Diptheria/Acellular [id number] Pertussis 78199 Given 02/06/2016 Fluzone High Dose 24078 Given 03/30/2015 Pneumococcal Conjugate Vaccine 13 Valent [id number] For Intramuscular Use 94107 Given 01/27/2014 Pneumonia Vaccine at [facility] [address] Given 01/27/2014 Flu Vaccine Split Virus Preservative Free For Indiv 3Yr Older 05043 Given 01/22/2008 Pneumonia Vaccine Vital Signs Date Vital Result Comment 06/12/2017 Heart Rate 79 /min BP Systolic [...] Color Yellow Urine Appearance Clear Urine Specific [place] 1.005 Low 1.010-1.030 Urine pH 6.0 5-9 [...] Color Yellow Urine Appearance Clear Urine Specific [place] 1.018 1.010-1.030 Urine pH 6.0 5-9 Urine [...] and in selective patients <6.0%.Please refer to [employer] Diabetic care guidelines for further [...] developed and its performance characteristics determined by [facility] in a manner consistent with CLIA requirements. This test has not been cleared or approved by the U.S. Food and Drug Administration. Test Performed by: [address] [address] 17 SEE RESULT BELOW Name: SERGIO RODRIGUEZ : [address]: Yandel Chavez MD Acct: [id number] Unit: [id number] AGE: 75 Location: [place] [address] Re07/13/16 Dis: 07/14/16 SEX: M Status: DIS Margaret SPEC: [id number] CHACHA: 07/13/[address]: Marky Szymanski MD REQ: [id number] RECD: 07/13/16 STATUS: MY STAPLETON DR: Porsha Hawkins MD _ SOURCE: BLOOD,VENO [facility]: ORDERED: Blood Cult Procedure Result Reported Site Aerobic Culture Bottle Final 07/18/16130 ML No Growth Day 5 Anaerobic Culture Bottle Final 07/18/16130 ML No Growth Day 5 * ML - MAIN LAB ([facility]) . END OF REPORT * ML=Testing performed at Main Lab DEPARTMENT OF PATHOLOGY, [address] [place] [address] Jamari Lara M.D. Director [facility] # [id number] 18 Because ethnic data is not always [...] 19 99th percentile=0.04 ng/mL Troponin results at [facility] and [facility] are not interchangeable. 20 [facility] Severe Sepsis and Septic Shock Management Bundle Measure requires all lactic acids initially measuring >2.0 mmol/L be repeated. 21 Monogram And Letter Paster: [id number] OSVALDO Allen 22 ADDITIONAL INFORMATION This test has been modified from the art therapy specialist's instructions. Its performance characteristics were determined by [facility] in a manner consistent with CLIA requirements. This test has not been cleared or approved by the U.S. Food and Drug Administration. Test Performed by: [place] [address] [employer]: Gianni Quiroz II, M.D., Ph.D. 23 Test Performed by: [place] [address] [employer]: Gianni Quiroz II, M.D., Ph.D. 24 Unable to calculate due to low microalbumin 25 Test Performed by: [place] [address] [employer]: Gianni Quiroz II, M.D., Ph.D. 26 Desirable [...] <15 (or dialysis) 31 Test Performed by: [place] [address] [employer]: Gianni Quiroz II, M.D., Ph.D. 32 Desirable [...] and in selective patients <6.0%.Please refer to [employer] Diabetic care guidelines for further information. 38 Test Performed by: [place] [address] [employer]: Gianni Quiroz II, M.D., Ph.D. 39 Test Performed by: [place] [address] [employer]: Gianni Qiuroz II, M.D., Ph.D. 40 Therapeutic target for the treatment of diabetes Mellitus patients is <7% HBA1C, and in selective patients <6.0%.Please refer to [employer] Diabetic care guidelines for further [...] and in selective patients <6.0%.Please refer to [employer] Diabetic care guidelines for further [...] and in selective patients <6.0%.Please refer to [employer] Diabetic care guidelines for further information. 52 Critical Result LACT:3.1 Called to [id number] at: 14:51:33 by:[id number] Read back by:[id number] 53 RUN DATE: 04/11/14 [facility] LAB LIVE PAGE 1 RUN TIME: [address] [place] [address] Specimen Inquiry Name: SERGIO RODRIGUEZ : [address]: Herb Mcclelland MD Acct: [id number] Unit: [id number] AGE: 73 Location: [facility] Re04/06/14 SEX: M Status: REG RCR SPEC: [id number] CHACHA: 04/06/[address]: Herb Mcclelland MD REQ: [id number] RECD: 04/06/14 STATUS: MY STAPLETON DR: Tyler Bo MD _ SOURCE: BLOOD,VENO SPDES: ORDERED: Blood Cult Procedure Result Verified Site Aerobic Culture Bottle Final 04/11/14- 1435 ML No Growth Day 5 Anaerobic Culture Bottle Final 04/11/14- 1435 ML No Growth Day 5 END OF REPORT * ML=Testing performed at Main Lab DEPARTMENT OF PATHOLOGY, [address], [place] [address] Jamari Lara M.D. Director [facility] # [id number] 54 Because ethnic data is not always [...] <15 (or dialysis) 55 RUN DATE: 04/06/14 [facility] LAB LIVE PAGE 1 RUN TIME: [address] [place] [address] Specimen Inquiry Name: SERGIO RODRIGUEZ : [address]: Herb Mcclelland MD Acct: [id number] Unit: [id number] AGE: 73 Location: [facility] Re04/06/14 SEX: M Status: REG RCR SPEC: [id number] CHACHA: 04/06/14 [facility] DR: Herb Mcclelland MD REQ: [id number] RECD: 04/06/14 STATUS: MY STAPLETON DR: Tyler Bo MD _ SOURCE: EDMUNDON [facility]: ORDERED: Rapid Flu A B COMMENTS: GREEN [...] performed at Main Lab DEPARTMENT OF PATHOLOGY, [address] [place] [address] Jamari Lara M.D. Director [facility] # [id number] 56 RUN DATE: 04/11/14 [facility] LAB LIVE PAGE 1 RUN TIME: [address] [place] [address] Specimen Inquiry Name: SERGIO RODRIGUEZ : [address]: Herb Mcclelland MD Acct: [id number] Unit: [id number] AGE: 73 Location: [facility] Re04/06/14 SEX: M Status: REG RCR SPEC: [id number] CHACHA: 04/06/14 [facility] DR: Herb Mcclelland MD REQ: [id number] RECD: 04/06/14 STATUS: MY STAPLETON DR: Tyler Bo MD _ SOURCE: BLOOD,VENO SPDESC: ORDERED: Blood Cult Procedure Result Verified Site Aerobic Culture Bottle Final 04/11/14- 1426 ML No Growth Day 5 Anaerobic Culture Bottle Final 04/11/14- 1426 ML No Growth Day 5 END OF REPORT * ML=Testing performed at Main Lab DEPARTMENT OF PATHOLOGY, [address] [place] [address] Jamari Lara M.D. Director [facility] # [id number] 57 Therapeutic target for the treatment of diabetes Mellitus patients is <7% HBA1C, and in selective patients <6.0%.Please refer to [employer] Diabetic care guidelines for further [...] and in selective patients <6.0%.Please refer to [employer] Diabetic care guidelines for further [...] failure <15 (or dialysis) 72 Verbal to [id number] by [id number] at 1042 on 11/18/13.~Results read back accurately. 73 Verbal to [id number] by [id number] at 0921 on 11/11/13.~Results read back accurately. 74 Consistent with previous results. 75 Smudge cells present 76 Verbal to FLOYD Allen by [id number] at 0924 on 11/04/13. Results read back accurately. 77 Verbal to FLOYD by [id number] at 0959 on 11/04/13. Results read back accurately. 78 Verbal to [id number] by [id number] at 0849 on 10/29/13.~Results read back accurately. 79 Consistent with previous results. 80 Verbal to [id number] by [id number] at 0932 on 10/29/13. Results read back [...] previous results. Verbal to INDIGO ALFORD by [id number] at 1001 on 09/23/13. Results read back [...] 160-189 Very High >189 90 Verbal to [id number] by [id number] at 1054 on 09/23/13. Results read back accurately. 91 Smudge cells present 92 Microalbuminuria in a random sample is defined as: Microalbumin/Creatinine ratio of 30-299 ug/mg. 93 Test Performed by: [address] [address] [employer] Manager: Theo Choi III, M.D. 94 Therapeutic target for the treatment of diabetes Mellitus patients is <7% HBA1C, and in selective patients <6.0%.Please refer to [employer] Diabetic care guidelines for further information. 95 Verbal to [id number] by [id number] at 1150 on 08/09/13.~Results read back accurately. 96 Test Performed by: [address] [address] [employer]: Theo Choi III, M.D. 97 Smudge cells [...] failure <15 (or dialysis) 101 Verbal to [id number] by at 1509 on 06/26/13. Results read back accurately. 102 >100 to <200 pg/mL: likely compensated congestive heart failure (CHF) 200 to 400 pg/mL: likely moderate CHF >400 pg/mL: likely moderate to severe CHF [place] [facility] 103 Reference Range and Interpretation: TnI (ng/mL) Interpretation Less Than 0.03 ng/mL Not supportive of diagnosis of VA 0.03 - 0.50 ng/mL Indeterminate: suggest serial studies if clinically indicated. Greater than 0.5 ng/mL Consistent with diagnosis of VA 104 Because ethnic data is not always [...] Procedures Date CPT Code Description Status 06/12/2017 44120 Inject Tendon Sheath Or Ligament Aponeurosis Eg Plantar Completed Fascia 03/20/2017 Diabetic Foot Exam Completed 03/18/2017 34821 Excise Benign Lesion 2.1-3CM Trunk/Arm/Leg Completed 02/27/2017 Diabetic Retinal Eye Exam Completed 02/26/2017 Diabetic Retinal Eye Exam Completed 01/20/2017 46538 Inject Tendon Sheath Or Ligament Aponeurosis Eg Plantar Completed Fascia 01/20/2017 05386 Inject Tendon Sheath Or Ligament Aponeurosis Eg Plantar Completed Fascia 08/21/2016 45660 Inject Tendon Sheath Or Ligament Aponeurosis Eg Plantar Completed Fascia 03/12/2016 99173 Carpal Tunnel Release Completed 03/12/2016 87117 Carpal Tunnel Release Completed 02/21/2016 Diabetic Retinal Eye Exam Completed 02/07/2016 77122 Inject Tendon Sheath Or Ligament Aponeurosis Eg Plantar Completed Fascia 01/10/2016 19785 ECHO Transthoracic, Real-Time 2D With Doppler And Color Completed Flow 06/29/2015 57919 Inject Tendon Sheath Or Ligament Aponeurosis Eg Plantar Completed Fascia 06/29/2015 03876 Inject Tendon Sheath Or Ligament Aponeurosis Eg Plantar Completed Fascia 03/31/2015 61090 Removal Skin Tags Up To 15 Completed 02/16/2015 Diabetic Retinal Eye Exam Completed 05/31/2014 57976 Bronchospasm Provocation Evalu Completed 04/28/2014 22066 Inject Tendon Sheath Or Ligament Aponeurosis Eg Plantar Completed Fascia 04/28/2014 43565 Pulmonary Function><Bronchodil Completed 04/28/2014 19664 Plethysmography Determination Lung Volumes & Per Completed Airway Resist 04/28/2014 74043 Diffusing Capacity Completed 02/03/2014 Diabetic Retinal Eye Exam Completed 02/19/2013 14852 EKG Tracing & Interpretation Completed 02/03/2013 55025 Stress Test Completed 02/03/2013 75417 Myocardial Perfusion Imaging Tomographic (Spect) Completed Multiple Studies 01/02/2012 29342 Polysomnography Sleep Staging 4+ Parameters W/Cpap Completed 12/30/2011 99580 Polysomnography Sleep Staging 4+ Parameters W/Cpap Completed 11/19/2011 83045 Polysomnography Sleep Staging 4+ Parameters W/Cpap Completed 05/01/2007 Colonoscopy Completed Encounters Type Date Location Provider CPT E/M Dx Office Visit 03/17/2017 12:10p [facility] Internal Medicine Porsha Hawkins M.D. 33468 L72.3 - Kwame L02.219 Office Visit 02/18/2017 1:00p [facility] Internal Medicine Porsha Hawkins M.D. 89763 E11.9 - Kwame I10 E03.9 E78.2 B02.9 I35.8 Office Visit 01/02/2017 11:00a [facility] Internal Medicine Juan J Wheeler, 10740 J06.9 - Kwame Swift Office Visit 11/27/2016 10:50a [facility] Internal Medicine Porsha Hawkins M.D. 66712 L23.9 - Kwame Office Visit 09/10/2016 10:00a [facility] Internal Medicine Nurse Visit C 34873 I10 - Kwame Z23 Office Visit 09/05/2016 9:50a [facility] Medicine Porsha Hawkins M.D. 61886 E11.9 - Kwame I10 R00.2 E78.2 Office Visit 08/21/2016 9:45a [facility] Michelle Mari, 48628 M65.341 Of Eron REYES-C Office Visit 07/30/2016 12:10p [facility] Internal Medicine Porsha Hawkins 02843 I10 - Kwame Swift J18.9 Office Visit 07/18/2016 10:10a [facility] Internal Medicine Porsha Hawkins M.D. 30762 J18.9 - [place] I10 Office Visit 07/14/2016 10:35a [facility], Yandel Chavez, 72741 J18.9 Hospitalists M.Sonny C91.10 E11.9 Z79.4 Office Visit 07/13/2016 10:35a [facility], Bowen Marquez M.D. 20277 J18.9 Hospitalists E11.9 C91.10 Z79.4 Office Visit 07/11/2016 12:45p [facility] Internal Medicine Porsha Hawkins M.D. 96677 J06.9 - [place] Office Visit 05/02/2016 10:10a [facility] Medicine Porsha Hawkins M.D. 55902 E11.9 - [place] E78.2 M10.071 E03.9 L57.0 Office Visit 02/26/2016 9:20a [facility] Belinda Lerma 66440 M65.332 Of Eron Swift M65.342 G56.01 Office Visit 02/16/2016 10:40a [facility] [place] [address] R21 - [place] Office Visit 02/07/2016 9:30a [facility] Belinda Lerma 32975 M65.332 Of Eron Swift M65.342 G56.01 Office Visit 01/01/2016 8:30a [facility] Medicine Porsha Hawkins M.D. 64553 E11.9 - [place] N52.1 R01.1 G47.00 Office Visit 08/29/2015 9:40a [facility] Yamilka Elmore M.D. 41152 J02.9 - [place] Office Visit 06/29/2015 8:20a [facility] Yamilka Elmore M.D. 26182 E11.9 - [place] E78.2 Z11.3 B35.8 Office Visit 06/29/2015 10:00a [facility] Belinda Lerma 61854 M65.332 Of Eron Swift M65.342 Office Visit 05/29/2015 9:40a [facility] Internal Medicine JuanJ LayKedar Wheeler, 46201 J06.9 - [place] Office Visit 05/16/2015 3:40p [facility] Medicine Yamilka Elmore M.D. 18661 E11.9 - [place] E03.8 F52.21 Office Visit 03/30/2015 8:20a [facility] Yamilka Elmore M.D. 36422 E11.9 - [place] E03.8 E78.2 G47.33 Z23 Office Visit 02/24/2015 11:20a [facility] Yamilka Elmore M.D. 89115 J01.90 - [place] Office Visit 01/25/2015 8:30a [facility] [place] [address] [address] F43.22 E11.65 Office Visit 11/24/2014 9:00a [facility] Paul Bazan M.D. 25181 786.2 Services Of [facility] 327.23 Office Visit 10/17/2014 9:30a [facility] Tyler Bo, [address] V70[address]0 - [address] M.DKedar,FACP 250.00 244.8 274.9 794.8 Office Visit 07/28/2014 10:00a [facility] Sleep Paul Bazan M.D. 98825 786.2 Services Of [facility] Office Visit 07/18/2014 9:30a [facility] [place] [address] 272.2 244.8 244.9 Office Visit 07/04/2014 10:00a [facility] Paul Bazan M.D. 56726 466.0 Services [facility] 786.07 Office Visit 05/13/2014 10:00a Pul[facility]ology [facility] Sleep Paul Bazan M.D. 49845 786.2 Services [facility] Office Visit 04/28/2014 1:30p [facility] Belinda Lerma, 89184 727.03 Eron Swift Office Visit 04/18/2014 2:00p [facility] Tyler Bo, 30727 250.00 - Les Swift,FACP 244.8 786.2 Office Visit 09/30/2013 11:50a [facility] Tyler Bo, 12390 693.0 - Les Swift,FACP 274.9 244.8 272.2 250.00 Office Visit 09/08/2013 11:40a [facility] Juan J Wheeler, 26049 782.1 - Les Swift Office Visit 08/19/2013 9:30a [facility] Tyler Bo, 42659 327.23 - Les Swift,FACP 204.10 272.0 592.0 244.8 250.02 Office Visit 07/08/2013 9:50a [facility] Tyler Bo, 87609 485 - Les Swift,FACP 485 204.12 204.12 327.23 327.23 Office Visit 07/04/2013 2:15p [facility], Renee Hester, 20784 485 Hospitalists M.DKedar 204.12 518.81 995.91 Office Visit 07/03/2013 2:15p [facility], Renee Hester, 15589 485 Hospitalists M.DKedar 204.12 518.81 Office Visit 07/02/2013 2:14p [facility], Renee Hester, 05779 485 Hospitalists M.DKedar 204.12 518.81 Office Visit 07/02/2013 8:31a [place] Madelaine Dennis 89709 486 Infectious Diseases Jamison Collier Office Visit 07/01/2013 8:25a [place] Madelaine Dennis 89777 486 Infectious Diseases Jam[place] Collier Office Visit 07/01/2013 2:13p [facility] Renee Hester, 87514 995.91 Assoc, Hospitalists MTomasz 485 204.12 518.81 Office Visit 06/30/2013 2:13p [facility], Renee Hester, 99771 995.91 Hospitalists MTomasz 485 204.12 518.81 Office Visit 06/30/2013 9:39a [place] Madelaine Dennis 84381 486 Infectious Diseases Jamison Collier Office Visit 06/29/2013 9:30a [facility] Kleber Dennis 99132 486 Infectious Diseases Jam[place] Collier Office Visit 06/29/2013 2:12p [facility] Renee Hester, 97103 995.91 Assoc, Hospitalists M.Sonny 485 204.12 518.81 Office Visit 06/28/2013 2:11p [facility] Renee Hester, 85166 995.91 Hospitalists M.Sonny 485 204.12 518.81 Office Visit 06/28/2013 9:23a [facility] Kleber Dennis 32048 486 Infectious Diseases Jamison Collier Office Visit 06/27/2013 2:10p [facility] Karen Hohn, 23682 995.91 Assoc, Hospitalists M.Sonny 485 204.12 518.81 Office Visit 06/26/2013 2:08p [facility] Karen Madden, 70586 995.91 Assoc, Hospitalists M.Sonny 485 204.12 401.9 Office Visit 05/19/2013 9:10a [facility] Tyler Bo, 69318 493.10 - Les Swift,[facility] 327.23 401.1 244.8 204.10 Office Visit 02/19/2013 8:30a [facility] Maico Andre, 69722 786.05 [facility] Jamison 327.23 401.1 Office Visit 01/10/2012 2:26p Elly Sanabria 18117 327.23 Disorder Madelaine Swift Office Visit 11/29/2011 8:38a Elly Sanabria 79114 327.23 Disorder Madelaine Swift Office Visit 10/30/2011 11:53a Elly Sanabria 05785 786.09 [facility] Jamison Plan of Care Future Appointment(s):08/21/2017 10:10 am - Porsha Hawkins M.D. at [facility] - Uyadpzybb02/01/2018 - Belinda Lerma M.D.M65.332 Trigger finger, left middle fingerFollow up:Follow up: As [id number] Trigger finger , left index finger
[2017-07-10] MEDS ORDERED: Polymyx/Trimethoprim OPTH* 10 ML BTL RIGHT EYE ONE (15:34)
[2017-07-10 16:05] LABS: ABS Basophils 0 10^3/ul (0-0.2); ABS Eosinophils 0.1 10^3/ul (0-0.6); ABS Lymphocytes 0.9 10^3/ul (1.0-4.8); ABS Monocytes 0.5 10^3/ul (0-0.8); ABS Neutrophils 6.3 10^3/ul (1.5-7.7); ABS Nucleated RBC 0 10^3/ul; Hematocrit 40 % (42-52); Hemoglobin 13.9 g/dl (14.0-18.0); Lymphocyte % 11.5 % (25-47); Mean Corpuscular HGB Conc 35 g/dl (31-36); Mean Corpuscular Hemoglobin 34 pg (27-31); Mean Corpuscular Volume 97 fL (80-94); Mean Platelet Volume 8.7 um3 (7.4-10.4); Nucleated Red Blood Cells % 0; Platelet Count 129 10^3/ul (150-450); Red Blood Count 4.16 10^6/ul (4.0-5.4); Red Cell Distribution Width 14 % (10.5-15); White Blood Count 7.8 10^3/ul (3.5-10.8)
--- NOTE | 2017-07-10 16:15 | RAD ---
INDICATION: Chest pain and cough COMPARISON: Chest x-ray dated July 25, 2016 TECHNIQUE: PA and lateral views of the chest were obtained. FINDINGS: The heart and mediastinum are normal in size and contour. On the AP view there is patchy density overlying the left lung base. On the lateral view chest x-ray is patchy density is localized to the posterior lung. There is no evidence of large pleural effusion. Visualized bones are normal for the patient's age. There is no radiographic evidence of free air beneath the diaphragm IMPRESSION: CHEST X-RAY FINDINGS ARE MOST INDICATIVE OF PATCHY INFILTRATE, POSSIBLY PNEUMONIA, AT THE POSTERIOR LEFT LUNG BASE.
[2017-07-10 16:20] LABS: EGFR Non-African American 70.2 (>60)
[2017-07-10 16:52] VITALS: BP 103/52
--- NOTE | 2017-07-10 17:05 | ED ---
HPI Febrile Illness - HPI Summary HPI Summary: Patient is a 76-year-old male with history of CLL presenting to the ED with chief complaint of fevers, sweats, chills, chest pain with cough, mid and upper back pain with cough and mild shortness of breath. He denies any recent illness. Symptoms have been present 2 days. He was seen by his physician, Dr. Wheeler yesterday and was given Mucinex. He states he has not had relief, and feels symptoms are becoming worse. He is seen by Dr. Mcclelland, oncology, for his CLL. Symptoms are not aggravated with positioning, not alleviated with medications or rest. He has also endorsing an erythematous, injected and slightly itchy red eyes since last evening. Symptoms have remained constant. Denies any abdominal pain, constipation, diarrhea. Endorses mild cough. - History of Current Complaint Chief Complaint: EDGeneral Time Seen by Provider: 07/10/17 15:06 Hx Obtained From: Patient Onset/Duration: Started Days Ago Timing: Constant Initial Severity: Moderate Current Severity: Moderate Pain Intensity: 2 Pain Scale Used: 0-10 Numeric Aggravating Factors: Nothing Alleviating Factors: Nothing Associated Signs and Symptoms: Cough, Night Sweats - Risk Factors Serious Bacterial Infection Risk Factors: Negative - Additional Pertinent History Primary Care Physician: [id number] - Allergy/Home Medications Allergies/Adverse Reactions: Allergies Allergy/AdvReac Type Severity Reaction Status Date / Time atorvastatin [From Lipitor] Allergy See Comment Verified 07/10/17 14:53 quinapril [From Accupril] Allergy Rash Verified 07/10/17 14:53 Sulfa (Sulfonamide Allergy Rash Verified 07/10/17 14:53 Antibiotics) temazepam Allergy Rash Verified 07/10/17 14:53 PMH/Surg Hx/FS Hx/Imm Hx Previously Healthy: No Endocrine/Hematology History: Reports: Hx Bone Marrow Disease - CLL WITH TX- UNDER CONTROL, Hx Diabetes - TYPE II, Hx Thyroid Disease - HYPOTHYROID, Other Endocrine/Hematological Disorders - Hemochromatosis Denies: Hx Systemic Lupus Erythematosus Cardiovascular History: Reports: Hx Hypercholesterolemia, Hx Hypertension - CONTROL WITH MEDS, Other Cardiovascular Problems/Disorders - CHOLESTEROL CONTROL WITH MEDS Denies: Hx Congestive Heart Failure Respiratory History: Reports: Hx Asthma - new DX summer 2012, UNSURE IF IT IS TRUE ASTHMA, Hx Pneumonia, Hx Seasonal Allergies - Unsure if seasonal, but yes to allergies, Hx Sleep Apnea GI History: Reports: Hx Gastroesophageal Reflux Disease - ACID REFLUX CONTROL WITH MEDS History: Reports: Hx Kidney Stones - HX OF, Hx Renal Disease - STONES 5 YEARS AGO, Other Problems/Disorders - hx lithotripsy Denies: Hx Dialysis Musculoskeletal History: Reports: Hx Gout Denies: Hx Rheumatoid Arthritis Sensory History: Reports: Hx Cataracts - HX OF, Hx Contacts or Glasses - READING GLASSES Denies: Hx Hearing Aid Opthamlomology History: Reports: Hx Cataracts - HX OF, Hx Contacts or Glasses - READING GLASSES Neurological History: Reports: Hx Migraine - "mini migraine", Other Neuro Impairments/Disorders - RIGHT CARPAL TUNNEL SYNDROME - Cancer History Cancer Type, Location and Year: CLL (TREATED) Hx Chemotherapy: Yes - 2013 - Surgical History Surgery Procedure, Year, and Place: BILATERA EYE SURGERY TO REPAIR MACULAR TEAR, . BILATELRAL CATARACT EXTRACTION WITH IOL IMPLANT. 02/2006 CYSTOSCOPY, EXCISION AND FULGERATION OF BLADDER LESION WITH RIGHT URETERAL STENT PLACEMENT, [facility] [place]. 03/2006 [facility] RIGHT WITH RIGHT STENT REMOVAL, [facility] [place] [facility]. 06/2006 RIGHT RENAL CALCULI ESW[facility], [facility]. 08/2006 [facility] LEFT RENAL CALCULI, [facility]. TONSILLECTOMY Hx Anesthesia Reactions: Yes - LITHO-UPSET STOMACH/LAST ONE NO PROBLEMS Infectious Disease History: No Infectious Disease History: Denies: Traveled Outside the [place] in Last 30 Days - Family History Family History: Denies FHx anesthesia reaction - Social History Alcohol Use: Daily Alcohol Amount: 1/DAY Substance Use Type: Reports: None Smoking Status (MU): Former Smoker Type: Cigarettes Amount Used/How Often: 2 PPD FOR ABOUT 20 YEARS Have You Smoked in the Last Year: No Review of Systems Positive: Fever, Chills, Fatigue, Skin Diaphoresis Positive: Erythema - right eye injection. Negative: Photophobia, Blurred Vision , Diplopia, Drainage ENT: Negative Positive: Shortness Of Breath, Cough Gastrointestinal: Negative Positive: no symptoms reported, see HPI Musculoskeletal: Negative Neurological: Negative All Other Systems Reviewed And Are Negative: Yes Physical Exam Triage Information Reviewed: Yes Vital Signs On Initial Exam: Initial Vitals Temp Pulse Resp BP Pulse Ox 98.6 F 102 20 132/62 91 07/10/17 14:48 07/10/17 14:48 07/10/17 14:48 07/10/17 14:48 07/10/17 14:48 Vital Signs Reviewed: Yes Appearance: Positive: Well-Nourished, Ill-Appearing Skin: Positive: Warm, Skin Color Reflects Adequate Perfusion Eyes: Positive: Conjunctiva Inflammed, Discharge Neck: Positive: No Lymphadenopathy Respiratory/Lung Sounds: Positive: Rhonchi - bilateral lower lung bases Cardiovascular: Positive: Pulses are Symmetrical in both Upper and Lower Extremities Musculoskeletal: Positive: Normal, Strength/ROM Intact Neurological: Positive: Speech Normal Psychiatric: Positive: Normal, Affect/Mood Appropriate AVPU Assessment: Alert Diagnostics - Vital Signs Vital Signs Temp Pulse Resp BP Pulse Ox 07/10/17 16:57 98.6 F 101 18 103/52 93 07/10/17 16:30 101 103/52 91 07/10/17 16:07 102 91 07/10/17 16:05 96/46 07/10/17 14:48 98.6 F 102 20 132/62 91 - Laboratory Lab Results: Lab Results 07/10/17 07/10/17 07/10/17 Range/Units 15:39 15:39 15:39 WBC 7.8 (3.5-10.8) 10^3/ul RBC 4.16 (4.0-5.4) 10^6/ul Hgb 13.9 L (14.0-18.0) g/dl Hct 40 L (42-52) % MCV 97 H (80-94) fL MCH 34 H (27-31) pg MCHC 35 (31-36) g/dl RDW 14 (10.5-15) % Plt Count 129 L (150-450) 10^3/ul MPV 8.7 (7.4-10.4) um3 Neut % (Auto) 80.3 (38-83) % Lymph % (Auto) 11.5 L (25-47) % Socorro % (Auto) 7.0 (0-7) % Eos % (Auto) 1.0 (0-6) % Baso % (Auto) 0.2 (0-2) % Absolute Neuts (auto) 6.3 (1.5-7.7) 10^3/ul Absolute Lymphs (auto) 0.9 L (1.0-4.8) 10^3/ul Absolute Monos (auto) 0.5 (0-0.8) 10^3/ul Absolute Eos (auto) 0.1 (0-0.6) 10^3/ul Absolute Basos (auto) 0 (0-0.2) 10^3/ul Absolute Nucleated RBC 0 10^3/ul Nucleated RBC % 0 ESR 40 (0-40) mm/Hr Sodium 137 L (139-145) mmol/L Potassium 3.5 (3.5-5.0) mmol/L Chloride 104 (101-111) mmol/L Carbon Dioxide 23 (22-32) mmol/L Anion Gap 10 (2-11) mmol/L BUN 23 (6-24) mg/dL Creatinine 1.03 (0.67-1.17) mg/dL Est GFR ( Amer) 90.3 (>60) Est GFR (Non-Af Amer) 70.2 (>60) BUN/Creatinine Ratio 22.3 H (8-20) Glucose 212 H (70-100) mg/dL Lactic Acid (0.5-2.0) mmol/L Calcium 8.8 (8.6-10.3) mg/dL Total Bilirubin 1.40 H (0.2-1.0) mg/dL AST 24 (13-39) U/L ALT 40 (7-52) U/L Alkaline Phosphatase 64 (34-104) U/L Troponin I 0.03 (<0.04) ng/mL C-Reactive Protein 144.29 H (< 5.00) mg/L B-Natriuretic Peptide 91 ( - 100) pg/mL Total Protein 6.2 L (6.4-8.9) g/dL Albumin 3.8 (3.2-5.2) g/dL Globulin 2.4 (2-4) g/dL Albumin/Globulin Ratio 1.6 (1-3) Influenza A (Rapid) (Negative) Influenza B (Rapid) (Negative) 07/10/17 07/10/17 Range/Units 15:39 16:01 WBC (3.5-10.8) 10^3/ul RBC (4.0-5.4) 10^6/ul Hgb (14.0-18.0) g/dl Hct (42-52) % MCV (80-94) fL MCH (27-31) pg MCHC (31-36) g/dl RDW (10.5-15) % Plt Count (150-450) 10^3/ul MPV (7.4-10.4) um3 Neut % (Auto) (38-83) % Lymph % (Auto) (25-47) % Socorro % (Auto) (0-7) % Eos % (Auto) (0-6) % Baso % (Auto) (0-2) % Absolute Neuts (auto) (1.5-7.7) 10^3/ul Absolute Lymphs (auto) (1.0-4.8) 10^3/ul Absolute Monos (auto) (0-0.8) 10^3/ul Absolute Eos (auto) (0-0.6) 10^3/ul Absolute Basos (auto) (0-0.2) 10^3/ul Absolute Nucleated RBC 10^3/ul Nucleated RBC % ESR (0-40) mm/Hr Sodium (139-145) mmol/L Potassium (3.5-5.0) mmol/L Chloride (101-111) mmol/L Carbon Dioxide (22-32) mmol/L Anion Gap (2-11) mmol/L BUN (6-24) mg/dL Creatinine (0.67-1.17) mg/dL Est GFR ( Amer) (>60) Est GFR (Non-Af Amer) (>60) BUN/Creatinine Ratio (8-20) Glucose (70-100) mg/dL Lactic Acid 1.6 (0.5-2.0) mmol/L Calcium (8.6-10.3) mg/dL Total Bilirubin (0.2-1.0) mg/dL AST (13-39) U/L ALT (7-52) U/L Alkaline Phosphatase (34-104) U/L Troponin I (<0.04) ng/mL C-Reactive Protein (< 5.00) mg/L B-Natriuretic Peptide ( - 100) pg/mL Total Protein (6.4-8.9) g/dL Albumin (3.2-5.2) g/dL Globulin (2-4) g/dL Albumin/Globulin Ratio (1-3) Influenza A (Rapid) Negative (Negative) Influenza B (Rapid) Negative (Negative) Result Diagrams: 07/10/17 15:39 07/10/17 15:39 Lab Statement: Any lab studies that have been ordered have been reviewed, and results considered in the medical decision making process. Course/Dx - Course Course Of Treatment: During the course of treatment, the patient's evaluated for pneumonia versus flu versus other pathology. Due to his immunocompromised state, obtained blood cultures despite normal vital signs. Chest x-ray findings are most indicative of a patchy infiltrate, possibly pneumonia, abdominal posterior left lung base. History of such and similar symptoms. Influenza swab obtained and is negative. Blood cultures are sent and will be pending at this time. White count is normal. Sputum culture obtained and is pending. I have discussed the case with Dr. Wade who agrees the patient is safe for discharge with antibiotics due to stable vital signs and a close follow -up with PCP on Friday. I have given strict return precautions he is to return to the ED for any worsening or changing symptoms. Due to his immunocompromised straight, I have given Levaquin 750 mg once daily 5 days for coverage. I have encouraged continuing Mucinex, Tylenol and ibuprofen intermittently for fevers sweats and chills, rest as much as possible and drink plenty of fluids. Him and his family member okay with this plan and discharged. Voices no concerns at this time. - Febrile Illness Differential Diagnoses: Fever of Unknown Origin, Pneumonia - Diagnoses Provider Diagnoses: Pneumonia Discharge - Sign-Out/Discharge Documenting (check all that apply): Discharge - Discharge Plan Condition: Stable Disposition: HOME Prescriptions: Levofloxacin TAB* [Levaquin TAB*] 750 mg PO DAILY #5 tab Patient Education Materials: Pneumonia (ED) Referrals: Porsha Hawkins MD [Primary Care Provider] - Additional Instructions: Levaquin 750mg once daily x 5 days Tylenol for any fevers Please take polymyxin drops to the R eye: Instill 1 drop in affected eye(s) every 3 hours (maximum: 6 doses per day) for 7 -10 days Please follow up with PCP by FRIDAY! However, if any symptoms do not improve or worsen, return to the ED immediately. - Billing Disposition and Condition Condition: STABLE Disposition: HOME
== END 2017-07-10 16:57 | disposition home or self-care (01) ==
LOC: ED 14:46
DX: J18.9 Pneumonia, unspecified organism (principal); R06.02 Shortness of breath; R05 Cough; Z87.891 Personal history of nicotine dependence
CPT/HCPCS: 36415; 71046; 80053; 83605; 83880; 84484; 85025; 85652; 86140; 87040; 87070; 87205; 87502; 99283

== ENCOUNTER 2021-04-12 14:45 | Observation (INO) ==
[2021-04-12 17:19] LABS: Hematocrit 42 % (42-52); Hemoglobin 14.2 g/dL (14.0-18.0); Mean Corpuscular HGB Conc 34 g/dL (31-36); Mean Corpuscular Hemoglobin 34 pg (27-31); Mean Corpuscular Volume 100 fL (80-94); Mean Platelet Volume 8.5 fL (7.4-10.4); Platelet Count 183 10^3/uL (150-450); Red Blood Count 4.17 10^6 /uL (4.18-5.48); Red Cell Distribution Width 14 % (10-15); White Blood Count 14.1 10^3/uL (3.5-10.8)
[2021-04-12 17:38] LABS: Albumin 4.7 g/dL (3.2-5.2); Albumin/Globulin Ratio 2.2 (1-3); C Reactive Protein 1.99 mg/L (<8.01); Calcium 9.2 mg/dL (8.6-10.3); Globulin 2.1 g/dL (2-4); Potassium 4.1 mmol/L (3.5-5.0); Total Bilirubin 0.5 mg/dL (0.2-1.0); Total Protein 6.8 g/dL (6.4-8.9); eGFR CKD-EPI 80.9 (>60)
[2021-04-12] MEDS ORDERED: Pantoprazole VIAL 40 MG VIAL IV ONE (17:42)
[2021-04-12 17:43] LABS: INR 1.11 (0.86-1.15)
[2021-04-12 17:44] LABS: ABS Eosinophils 0.7 10^3/ul (0-0.6); ABS Lymphocytes 8.7 10^3/ul (1.0-4.8); ABS Monocytes 0.5 10^3/ul (0-0.8); ABS Neutrophils 4.2 10^3/ul (1.5-7.7); ABS Nucleated RBC 0.1 10^3/ul; Eosinophil % 4.7 %; Lymphocyte % 61.9 %; Nucleated Red Blood Cells % 0.6
[2021-04-12] MEDS ORDERED: PEG 3000 GI LAVAGE 1 GALLON PO ONE (17:45)
[2021-04-13] MEDS: CMCS: Pravastatin 20 mg TAB (NF) PO SCH ×2 (00:22→20:09)
[2021-04-13] MEDS ORDERED: Dextrose 50% Syringe 50 ml 25 GM/50 ML SYRINGE IV PUSH PRN (00:57)
[2021-04-13 01:07] LABS: Hematocrit 38 % (42-52); Hemoglobin 13.2 g/dL (14.0-18.0)
[2021-04-13 06:18] LABS: Hematocrit 35 % (42-52); Hemoglobin 12.2 g/dL (14.0-18.0); Mean Corpuscular HGB Conc 35 g/dL (31-36); Mean Corpuscular Hemoglobin 35 pg (27-31); Mean Corpuscular Volume 100 fL (80-94); Mean Platelet Volume 8.4 fL (7.4-10.4); Platelet Count 156 10^3/uL (150-450); Red Blood Count 3.54 10^6 /uL (4.18-5.48); Red Cell Distribution Width 13 % (10-15); White Blood Count 11.9 10^3/uL (3.5-10.8)
[2021-04-13 06:39] LABS: Calcium 8.7 mg/dL (8.6-10.3); Potassium 4.1 mmol/L (3.5-5.0); eGFR CKD-EPI 79.9 (>60)
[2021-04-13 07:01] LABS: ABS Eosinophils 0.6 10^3/ul (0-0.6); ABS Lymphocytes 8.1 10^3/ul (1.0-4.8); ABS Monocytes 0.4 10^3/ul (0-0.8); ABS Neutrophils 2.7 10^3/ul (1.5-7.7); ABS Nucleated RBC 0.1 10^3/ul; Eosinophil % 5.4 %; Lymphocyte % 68.1 %; Nucleated Red Blood Cells % 0.5
[2021-04-13] MEDS ORDERED: Midazolam 10 mg/10 ml VIAL 1 mg/ml 10 ml VIAL (10 mg) ONE (14:15)
[2021-04-13] MEDS ORDERED: fentaNYL 100 mcg/2 ml 50 MCG/ML VIAL ONE (14:15)
[2021-04-14 06:27] LABS: Hematocrit 37 % (42-52); Hemoglobin 12.6 g/dL (14.0-18.0); Mean Corpuscular HGB Conc 34 g/dL (31-36); Mean Corpuscular Hemoglobin 34 pg (27-31); Mean Corpuscular Volume 101 fL (80-94); Mean Platelet Volume 8.7 fL (7.4-10.4); Platelet Count 157 10^3/uL (150-450); Red Blood Count 3.67 10^6 /uL (4.18-5.48); Red Cell Distribution Width 13 % (10-15); White Blood Count 11.5 10^3/uL (3.5-10.8)
[2021-04-14 06:35] LABS: ABS Eosinophils 0.6 10^3/ul (0-0.6); ABS Lymphocytes 7.2 10^3/ul (1.0-4.8); ABS Monocytes 0.4 10^3/ul (0-0.8); ABS Neutrophils 3.3 10^3/ul (1.5-7.7); Eosinophil % 5.2 %; Lymphocyte % 62.8 %; Nucleated Red Blood Cells % 0.2
[2021-04-14 06:51] LABS: Calcium 9.1 mg/dL (8.6-10.3); Potassium 4.1 mmol/L (3.5-5.0); eGFR CKD-EPI 85.2 (>60)
[2021-04-14 07:35] LABS: Macrocytosis 1+
[2021-04-14 13:00] VITALS: BP 121/61
== END 2021-04-14 14:15 | disposition home or self-care (01) ==
LOC: ED 14:45 → EDHOLD 20:37 → INTOOBSV 20:37 → SUATTDRO 20:37 → EDHOLD 22:07 → SSU 22:25
PROVIDERS: ADMIT Internal Medicine; ATTEND Internal Medicine

== ENCOUNTER 2021-07-04 06:13 | Inpatient (IN) ==
[2021-07-04 06:56] LABS: Hematocrit 42 % (42-52); Hemoglobin 14.3 g/dL (14.0-18.0); Mean Corpuscular HGB Conc 34 g/dL (31-36); Mean Corpuscular Hemoglobin 34 pg (27-31); Mean Corpuscular Volume 98 fL (80-94); Platelet Count 190 10^3/uL (150-450); Red Blood Count 4.24 10^6 /uL (4.18-5.48); Red Cell Distribution Width 15 % (10-15)
[2021-07-04 06:58] LABS: PCO2 Arterial 32 mmHg (35-45)
[2021-07-04 07:06] LABS: Activated Partial Thrombo Time 26.8 seconds (26.0-38.0); INR 1.12 (0.86-1.15)
[2021-07-04 07:32] LABS: C Reactive Protein 129.31 mg/L (<8.01); Calcium 8.9 mg/dL (8.6-10.3); Potassium 4.1 mmol/L (3.5-5.0); Total Bilirubin 1.2 mg/dL (0.2-1.0); eGFR CKD-EPI 79.9 (>60)
[2021-07-04 07:43] LABS: PO2 Arterial 56 mmHg (80-100)
[2021-07-04 07:48] LABS: ABS Eosinophils 0.1 10^3/ul (0-0.6); ABS Lymphocytes 12.3 10^3/ul (1.0-4.8); ABS Monocytes 0.3 10^3/ul (0-0.8); ABS Neutrophils 7.3 10^3/ul (1.5-7.7); Eosinophil % 0.5 %; Lymphocyte % 61.5 %; Nucleated Red Blood Cells % 0.1
[2021-07-04 08:12] LABS: High Sensitivity Troponin 1 Hr 28 pg/mL (<20)
[2021-07-04] MEDS ORDERED: Furosemide 40 mg/4 ml IV VIAL IV ONE (09:19)
[2021-07-04] MEDS ORDERED: Albuterol HFA INHALER 8 gm MDI INH PRN (09:21)
[2021-07-04] MEDS ORDERED: Albuterol/Ipratropium NEB.SOL (2.5/0.5 MG) 3 ML NEB.SOLN INH PRN (09:26)
[2021-07-04] MEDS ORDERED: Piperacillin/Tazobac ADVAN 3.375 GM in NS 0.9% 100 ml BAG 100 ML IV ONE (09:28)
[2021-07-04] MEDS ORDERED: FOLIC ACID 800 MCG PO SCH (09:30)
[2021-07-04] MEDS ORDERED: Piperacillin/Tazobac 3.375 GM BAG ONE (09:41)
[2021-07-04] MEDS ORDERED: Aspirin EC 81 mg TAB.EC (enteric coated) PO SCH (10:00)
[2021-07-04] MEDS ORDERED: Zosyn per Pharmacy NOTE FOLLOW UP SCH (10:00)
[2021-07-04] MEDS ORDERED: CMCS:Pravastatin 20 mg TAB (NF) PO SCH (10:00)
[2021-07-04] MEDS ORDERED: methylPREDNISolone SOD 40 mg/ml 1 ml VIAL IV SCH ×2 (10:00→10:25)
[2021-07-04] MEDS ORDERED: Dextrose 50% Syringe 50 ml 25 GM/50 ML SYRINGE IV PUSH PRN (10:15)
[2021-07-04] MEDS ORDERED: Pantoprazole VIAL 40 MG VIAL IV SCH (11:00)
[2021-07-04] MEDS: methylPREDNISolone 125 mg 2 ML VIAL IV SCH ×2 (12:46→18:34)
[2021-07-04] MEDS: Fluticasone NASAL SPRAY 50MCG 16 gm SPRAY BTL INTRANASAL SCH ×2 (12:48→21:32)
[2021-07-04] MEDS: Linezolid 600 MG IVPREMIX(*) 600 MG/300 ML BAG IVPB SCH ×2 (13:16→21:47)
[2021-07-04] MEDS: ZOSYN 3.375 GM Q8H per EXTENDED INFUSION IV SCH ×2 (14:49→23:03)
[2021-07-04] MEDS: CMCS:Pravastatin 20 mg TAB (NF) PO SCH (21:33)
[2021-07-04] MEDS: Pantoprazole VIAL 40 MG VIAL IV SCH (21:40)
[2021-07-04 23:24] LABS: C Reactive Protein 185.04 mg/L (<8.01)
[2021-07-05] MEDS: methylPREDNISolone 125 mg 2 ML VIAL IV SCH ×3 (01:44→17:18)
[2021-07-05 05:34] LABS: Hematocrit 40 % (42-52); Hemoglobin 13.9 g/dL (14.0-18.0); Mean Corpuscular HGB Conc 35 g/dL (31-36); Mean Corpuscular Hemoglobin 34 pg (27-31); Mean Corpuscular Volume 96 fL (80-94); Mean Platelet Volume 7.9 fL (7.4-10.4); Platelet Count 191 10^3/uL (150-450); Red Blood Count 4.16 10^6 /uL (4.18-5.48); Red Cell Distribution Width 14 % (10-15)
[2021-07-05 05:45] LABS: ABS Basophils 0.1 10^3/ul (0-0.2); ABS Lymphocytes 13.8 10^3/ul (1.0-4.8); ABS Monocytes 0.2 10^3/ul (0-0.8); ABS Neutrophils 7.9 10^3/ul (1.5-7.7); ABS Nucleated RBC 0.1 10^3/ul; Lymphocyte % 62.6 %; Nucleated Red Blood Cells % 0.4
[2021-07-05 06:09] LABS: Albumin 3.7 g/dL (3.2-5.2); Albumin/Globulin Ratio 1.9 (1-3); Calcium 8.8 mg/dL (8.6-10.3); Magnesium 2.2 mg/dL (1.9-2.7); Phosphorus 3.8 mg/dL (2.5-5.0); Potassium 4.2 mmol/L (3.5-5.0); Total Bilirubin 1.3 mg/dL (0.2-1.0); Total Protein 5.7 g/dL (6.4-8.9); eGFR CKD-EPI 88.8 (>60)
[2021-07-05] MEDS: ZOSYN 3.375 GM Q8H per EXTENDED INFUSION IV SCH ×3 (06:17→23:17)
[2021-07-05] MEDS: Pantoprazole VIAL 40 MG VIAL IV SCH ×2 (08:57→21:57)
[2021-07-05] MEDS: Fluticasone NASAL SPRAY 50MCG 16 gm SPRAY BTL INTRANASAL SCH ×2 (08:57→21:57)
[2021-07-05] MEDS: Linezolid 600 MG IVPREMIX(*) 600 MG/300 ML BAG IVPB SCH ×2 (10:43→22:01)
[2021-07-05] MEDS ORDERED: Lidocaine 4% TOPICAL 50 ML TOP.SOLN ONE (12:00)
[2021-07-05] MEDS ORDERED: Lidocaine 1% MPF 5 ML VIAL ONE (12:00)
[2021-07-05] MEDS ORDERED: Midazolam 10 mg/10 ml VIAL 1 mg/ml 10 ml VIAL (10 mg) ONE (12:13)
[2021-07-05] MEDS ORDERED: fentaNYL 100 mcg/2 ml 50 MCG/ML VIAL ONE ×2 (12:13→12:44)
[2021-07-05] MEDS ORDERED: Midazolam 5 mg/5 ml VIAL 1 mg/ml 5 ml VIAL (5 mg) ONE (12:44)
[2021-07-05] MEDS ORDERED: Lidocaine 1% MPF 5 ML VIAL INJ ONE (13:00)
[2021-07-05] MEDS ORDERED: Furosemide 40 mg/4 ml IV VIAL IV ONE (13:20)
[2021-07-05 14:08] LABS: Body Fluid Source Broncheoalveolar lav
[2021-07-05 15:46] LABS: Body Fluid Appearance Cloudy
[2021-07-05 15:47] LABS: Body Fluid Appearance Cloudy; Body Fluid Color Pink
[2021-07-05 17:35] LABS: Body Fluid Total Cells Counted 300
[2021-07-05 17:49] LABS: Body Fluid Total Cells Counted 300
[2021-07-05] MEDS: Insulin GLARGINE 100 un/ml 10 ml VIAL SUBCUT SCH (21:58)
[2021-07-05] MEDS: CMCS:Pravastatin 20 mg TAB (NF) PO SCH (22:00)
[2021-07-05] MEDS: Psyllium PAK PO PRN (22:07)
[2021-07-06] MEDS: methylPREDNISolone 125 mg 2 ML VIAL IV SCH ×3 (03:00→17:46)
[2021-07-06 04:27] LABS: Hematocrit 36 % (42-52); Hemoglobin 12.5 g/dL (14.0-18.0); Mean Corpuscular HGB Conc 35 g/dL (31-36); Mean Corpuscular Hemoglobin 33 pg (27-31); Mean Corpuscular Volume 96 fL (80-94); Platelet Count 219 10^3/uL (150-450); Red Blood Count 3.77 10^6 /uL (4.18-5.48); Red Cell Distribution Width 14 % (10-15); White Blood Count 26.1 10^3/uL (3.5-10.8)
[2021-07-06 04:45] LABS: Calcium 8.7 mg/dL (8.6-10.3); Magnesium 2.1 mg/dL (1.9-2.7); Phosphorus 4.2 mg/dL (2.5-5.0)
[2021-07-06 05:00] LABS: ABS Lymphocytes 16.5 10^3/ul (1.0-4.8); ABS Monocytes 0.2 10^3/ul (0-0.8); ABS Neutrophils 9.3 10^3/ul (1.5-7.7); ABS Nucleated RBC 0.2 10^3/ul; Lymphocyte % 63.3 %; Nucleated Red Blood Cells % 0.8
[2021-07-06] MEDS: ZOSYN 3.375 GM Q8H per EXTENDED INFUSION IV SCH ×3 (06:32→20:53)
[2021-07-06] MEDS: Pantoprazole VIAL 40 MG VIAL IV SCH ×2 (08:48→20:52)
[2021-07-06] MEDS: Insulin GLARGINE 100 un/ml 10 ml VIAL SUBCUT SCH (08:49)
[2021-07-06] MEDS: Psyllium PAK PO PRN (08:52)
[2021-07-06] MEDS: Fluticasone NASAL SPRAY 50MCG 16 gm SPRAY BTL INTRANASAL SCH ×2 (08:52→20:42)
[2021-07-06] MEDS ORDERED: Furosemide 20 mg/2 ml IV VIAL IV ONE (09:30)
[2021-07-06] MEDS: Linezolid 600 MG IVPREMIX(*) 600 MG/300 ML BAG IVPB SCH ×2 (10:37→20:53)
[2021-07-06 13:20] LABS: Myeloperoxidase Antibody <0.2 U; Proteinase 3 <0.2 U
[2021-07-06 16:17] LABS: Anti SSA/RO Antibody <0.2 U; SS-B/La Antibody <0.2 U
[2021-07-06] MEDS: CMCS:Pravastatin 20 mg TAB (NF) PO SCH (20:53)
[2021-07-06] MEDS ORDERED: Insulin GLARGINE 100 un/ml 10 ml VIAL SUBCUT SCH (21:00)
[2021-07-07] MEDS: methylPREDNISolone 125 mg 2 ML VIAL IV SCH ×4 (02:33→10:18)
[2021-07-07] MEDS: ZOSYN 3.375 GM Q8H per EXTENDED INFUSION IV SCH (05:46)
[2021-07-07 05:52] LABS: Hematocrit 36 % (42-52); Hemoglobin 12.3 g/dL (14.0-18.0); Mean Corpuscular HGB Conc 34 g/dL (31-36); Mean Corpuscular Hemoglobin 33 pg (27-31); Mean Corpuscular Volume 97 fL (80-94); Mean Platelet Volume 7.8 fL (7.4-10.4); Platelet Count 207 10^3/uL (150-450); Red Blood Count 3.71 10^6 /uL (4.18-5.48); Red Cell Distribution Width 15 % (10-15); White Blood Count 22.9 10^3/uL (3.5-10.8)
[2021-07-07 05:57] LABS: ABS Lymphocytes 14.4 10^3/ul (1.0-4.8); ABS Monocytes 0.3 10^3/ul (0-0.8); ABS Neutrophils 8.2 10^3/ul (1.5-7.7); ABS Nucleated RBC 0.1 10^3/ul; Lymphocyte % 62.8 %; Nucleated Red Blood Cells % 0.2
[2021-07-07 06:43] LABS: Calcium 8.5 mg/dL (8.6-10.3); Magnesium 2.2 mg/dL (1.9-2.7); Potassium 4.4 mmol/L (3.5-5.0); eGFR CKD-EPI 85.2 (>60)
[2021-07-07] MEDS: Pantoprazole VIAL 40 MG VIAL IV SCH ×2 (08:07→20:44)
[2021-07-07] MEDS: Fluticasone NASAL SPRAY 50MCG 16 gm SPRAY BTL INTRANASAL SCH ×2 (08:07→20:46)
[2021-07-07] MEDS ORDERED: Furosemide 20 mg/2 ml IV VIAL IV SLOW PU ONE (08:37)
[2021-07-07] MEDS: Linezolid 600 MG IVPREMIX(*) 600 MG/300 ML BAG IVPB SCH (09:54)
[2021-07-07] MEDS ORDERED: Furosemide 20 mg/2 ml IV VIAL IV ONE (09:57)
[2021-07-07] MEDS ORDERED: methylPREDNISolone SOD 40 mg/ml 1 ml VIAL IV SCH (11:00)
[2021-07-07] MEDS: Psyllium PAK PO PRN (11:47)
[2021-07-07] MEDS: CMCS:Pravastatin 20 mg TAB (NF) PO SCH (20:44)
[2021-07-07] MEDS: Insulin GLARGINE 100 un/ml 10 ml VIAL SUBCUT SCH (20:45)
[2021-07-07] MEDS: methylPREDNISolone SOD 40 mg/ml 1 ml VIAL IV SCH (20:46)
[2021-07-07 23:26] LABS: Mycoplasma Pneumoniae PCR Negative
[2021-07-08] MEDS: methylPREDNISolone SOD 40 mg/ml 1 ml VIAL IV SCH ×3 (04:27→21:28)
[2021-07-08 05:52] LABS: Hematocrit 37 % (42-52); Hemoglobin 12.3 g/dL (14.0-18.0); Mean Corpuscular HGB Conc 34 g/dL (31-36); Mean Corpuscular Hemoglobin 33 pg (27-31); Mean Corpuscular Volume 97 fL (80-94); Mean Platelet Volume 7.8 fL (7.4-10.4); Platelet Count 223 10^3/uL (150-450); Red Blood Count 3.77 10^6 /uL (4.18-5.48); Red Cell Distribution Width 14 % (10-15); White Blood Count 23.8 10^3/uL (3.5-10.8)
[2021-07-08 06:16] LABS: ABS Lymphocytes 15.4 10^3/ul (1.0-4.8); ABS Monocytes 0.3 10^3/ul (0-0.8); ABS Nucleated RBC 0.4 10^3/ul; Lymphocyte % 64.9 %; Nucleated Red Blood Cells % 1.5
[2021-07-08 06:42] LABS: Calcium 8.6 mg/dL (8.6-10.3); Magnesium 2.2 mg/dL (1.9-2.7); Potassium 4.4 mmol/L (3.5-5.0); eGFR CKD-EPI 87.5 (>60)
[2021-07-08] MEDS: Pantoprazole VIAL 40 MG VIAL IV SCH ×2 (08:28→21:28)
[2021-07-08] MEDS: Fluticasone NASAL SPRAY 50MCG 16 gm SPRAY BTL INTRANASAL SCH ×2 (08:32→21:29)
[2021-07-08] MEDS: CMCS:Pravastatin 20 mg TAB (NF) PO SCH (21:29)
[2021-07-08] MEDS: Insulin GLARGINE 100 un/ml 10 ml VIAL SUBCUT SCH (21:35)
[2021-07-08] MEDS: Psyllium PAK PO PRN (22:03)
[2021-07-09 04:45] LABS: Hematocrit 39 % (42-52); Hemoglobin 13.4 g/dL (14.0-18.0); Mean Corpuscular HGB Conc 34 g/dL (31-36); Mean Corpuscular Hemoglobin 34 pg (27-31); Mean Corpuscular Volume 98 fL (80-94); Mean Platelet Volume 7.9 fL (7.4-10.4); Platelet Count 259 10^3/uL (150-450); Red Blood Count 4.01 10^6 /uL (4.18-5.48); Red Cell Distribution Width 15 % (10-15)
[2021-07-09 05:16] LABS: Calcium 8.8 mg/dL (8.6-10.3); Magnesium 2.4 mg/dL (1.9-2.7); Potassium 4.7 mmol/L (3.5-5.0); eGFR CKD-EPI 81.9 (>60)
[2021-07-09 05:26] LABS: ABS Basophils 0.1 10^3/ul (0-0.2); ABS Lymphocytes 24.1 10^3/ul (1.0-4.8); ABS Monocytes 0.4 10^3/ul (0-0.8); ABS Neutrophils 9.5 10^3/ul (1.5-7.7); Lymphocyte % 70.8 %; Nucleated Red Blood Cells % 0.1
[2021-07-09] MEDS: Fluticasone NASAL SPRAY 50MCG 16 gm SPRAY BTL INTRANASAL SCH ×2 (08:54→20:14)
[2021-07-09] MEDS: Pantoprazole VIAL 40 MG VIAL IV SCH (08:55)
[2021-07-09] MEDS: methylPREDNISolone SOD 40 mg/ml 1 ml VIAL IV SCH ×2 (10:38→20:16)
[2021-07-09 11:53] LABS: Albumin 3.7 g/dL (3.2-5.2); Albumin/Globulin Ratio 2.1 (1-3); Direct Bilirubin 0.2 mg/dL (0.03-0.18); Globulin 1.8 g/dL (2-4); Indirect Bilirubin 0.7 mg/dL (0.3-1.0); Total Bilirubin 0.9 mg/dL (0.2-1.0); Total Protein 5.5 g/dL (6.4-8.9)
[2021-07-09] MEDS: Insulin GLARGINE 100 un/ml 10 ml VIAL SUBCUT SCH (20:14)
[2021-07-09] MEDS: CMCS:Pravastatin 20 mg TAB (NF) PO SCH (20:15)
[2021-07-10] MEDS: Fluticasone NASAL SPRAY 50MCG 16 gm SPRAY BTL INTRANASAL SCH ×2 (08:17→21:30)
[2021-07-10] MEDS: methylPREDNISolone SOD 40 mg/ml 1 ml VIAL IV SCH ×2 (08:17→21:30)
[2021-07-10] MEDS: Lansoprazole SUSP ORALSYR 3 MG/ML PO SCH (08:18)
[2021-07-10 13:38] LABS: Corrected Retic Count 0.8 % (0.5-1.5); Hematocrit for Retic CNT 38 % (42-52); Immature Retic Fraction 0.41; RBC Retic Count 3.97 10^6/uL (4.18-5.48)
[2021-07-10] MEDS ORDERED: Dextrose 50% Syringe 50 ml 25 GM/50 ML SYRINGE IV PUSH PRN (16:38)
[2021-07-10] MEDS: Insulin GLARGINE 100 un/ml 10 ml VIAL SUBCUT SCH (21:29)
[2021-07-10] MEDS: CMCS:Pravastatin 20 mg TAB (NF) PO SCH (21:30)
[2021-07-11] MEDS: Lansoprazole SUSP ORALSYR 3 MG/ML PO SCH (10:34)
[2021-07-11] MEDS: Fluticasone NASAL SPRAY 50MCG 16 gm SPRAY BTL INTRANASAL SCH ×2 (10:37→20:19)
[2021-07-11] MEDS ORDERED: Furosemide 40 mg/4 ml IV VIAL IV SLOW PU ONE (13:13)
[2021-07-11 15:09] LABS: Immunoglobulin A 91 mg/dL (61 - 356); Immunoglobulin G 208 mg/dL (767 - 1590); Immunoglobulin M 23 mg/dL (37 - 286)
[2021-07-11 15:16] LABS: Beta 2 Microglobulin 1.81 mcg/mL
[2021-07-11 18:48] LABS: Albumin/Globulin Ratio 1.22; Gamma Globulin 0.3 g/dL (0.6-1.6); Total Protein(PEP) 5.4 g/dL (6.3 - 7.9)
[2021-07-11] MEDS: Insulin GLARGINE 100 un/ml 10 ml VIAL SUBCUT SCH (20:19)
[2021-07-11] MEDS: CMCS:Pravastatin 20 mg TAB (NF) PO SCH (20:20)
[2021-07-12 06:33] LABS: Hematocrit 38 % (42-52); Hemoglobin 13.2 g/dL (14.0-18.0); Mean Corpuscular HGB Conc 35 g/dL (31-36); Mean Corpuscular Hemoglobin 34 pg (27-31); Mean Corpuscular Volume 97 fL (80-94); Mean Platelet Volume 7.6 fL (7.4-10.4); Platelet Count 193 10^3/uL (150-450); Red Blood Count 3.92 10^6 /uL (4.18-5.48); Red Cell Distribution Width 15 % (10-15); White Blood Count 23.2 10^3/uL (3.5-10.8)
[2021-07-12 06:44] LABS: Albumin 3.4 g/dL (3.2-5.2); Albumin/Globulin Ratio 2.4 (1-3); Calcium 8.4 mg/dL (8.6-10.3); Globulin 1.4 g/dL (2-4); Potassium 3.8 mmol/L (3.5-5.0); Total Bilirubin 0.7 mg/dL (0.2-1.0); Total Protein 4.8 g/dL (6.4-8.9); eGFR CKD-EPI 89.8 (>60)
[2021-07-12] MEDS: Lansoprazole SUSP ORALSYR 3 MG/ML PO SCH (07:37)
[2021-07-12] MEDS: Fluticasone NASAL SPRAY 50MCG 16 gm SPRAY BTL INTRANASAL SCH ×2 (07:37→23:11)
[2021-07-12 07:53] LABS: RBC Morphology Normal (Normal)
[2021-07-12 07:54] LABS: ABS Eosinophils 0.1 10^3/ul (0-0.6); ABS Lymphocytes 15.9 10^3/ul (1.0-4.8); ABS Monocytes 0.4 10^3/ul (0-0.8); ABS Neutrophils 6.8 10^3/ul (1.5-7.7); ABS Nucleated RBC 0.1 10^3/ul; Eosinophil % 0.4 %; Lymphocyte % 68.7 %; Nucleated Red Blood Cells % 0.2
[2021-07-12 12:19] LABS: Cyclic Citrullinated Pept IgG <15.6 U
[2021-07-12] MEDS ORDERED: Furosemide 40 mg/4 ml IV VIAL IV SLOW PU ONE (12:51)
[2021-07-12] MEDS: CMCS:Pravastatin 20 mg TAB (NF) PO SCH (23:09)
[2021-07-12] MEDS: Insulin GLARGINE 100 un/ml 10 ml VIAL SUBCUT SCH (23:21)
[2021-07-13 06:21] LABS: Hematocrit 39 % (42-52); Hemoglobin 13.1 g/dL (14.0-18.0); Mean Corpuscular HGB Conc 34 g/dL (31-36); Mean Corpuscular Hemoglobin 33 pg (27-31); Mean Corpuscular Volume 98 fL (80-94); Mean Platelet Volume 7.7 fL (7.4-10.4); Platelet Count 191 10^3/uL (150-450); Red Blood Count 3.94 10^6 /uL (4.18-5.48); Red Cell Distribution Width 15 % (10-15)
[2021-07-13 06:52] LABS: Calcium 8.3 mg/dL (8.6-10.3); Potassium 3.7 mmol/L (3.5-5.0); eGFR CKD-EPI 87.5 (>60)
[2021-07-13] MEDS: Fluticasone NASAL SPRAY 50MCG 16 gm SPRAY BTL INTRANASAL SCH (08:34)
[2021-07-13 08:40] LABS: ABS Eosinophils 0.1 10^3/ul (0-0.6); ABS Lymphocytes 16.5 10^3/ul (1.0-4.8); ABS Monocytes 0.5 10^3/ul (0-0.8); ABS Neutrophils 6.9 10^3/ul (1.5-7.7); ABS Nucleated RBC 0.1 10^3/ul; Eosinophil % 0.6 %; Lymphocyte % 68.5 %; Nucleated Red Blood Cells % 0.2
[2021-07-13] MEDS: Lansoprazole SUSP ORALSYR 3 MG/ML PO SCH (11:16)
[2021-07-13 12:16] VITALS: BP 104/52
== END 2021-07-13 15:11 | disposition home or self-care (01) | DRG 871 ==
LOC: ED 06:13 → SUATTDRO 09:35 → ICU 09:35 → MEDTELE 07-09 11:34
PROVIDERS: ADMIT Internal Medicine; ATTEND Internal Medicine

== ENCOUNTER 2023-06-25 11:39 | Observation (INO) ==
[2023-06-25 13:32] LABS: ABS Eosinophils 0.1 10^3/uL (0.0-0.5); ABS Lymphocytes 2.9 10^3/uL (1.0-4.8); ABS Monocytes 0.3 10^3/uL (0.0-1.1); ABS Neutrophils 8.1 10^3/uL (1.5-7.6); ABS Nucleated RBC 0.01 10^3/ul; Eosinophil % 0.8 %; Hematocrit 46.1 % (38-53); Hemoglobin 15.4 g/dL (13.2-16.3); Lymphocyte % 25.5 %; Mean Corpuscular Hemoglobin 33.4 pg (27-33); Mean Corpuscular Hgb Conc 33.5 g/dL (31-36); Mean Corpuscular Volume 99.7 fL (80-97); Mean Platelet Volume 8.2 fL (7.5-11.2); Nucleated Red Blood Cells % 0.1 %/100WBC (0.0-0.8); Platelet Count 177 10^3/uL (150-450); Red Blood Count 4.62 10^6/uL (4.06-5.63); Red Cell Distribution Width 13.9 % (12-17); White Blood Count 11.3 10^3/uL (3.6-10.2)
[2023-06-25 13:51] LABS: INR 0.95 (0.83-1.13)
[2023-06-25 14:03] LABS: Albumin 4.8 g/dL (3.2-5.2); Albumin/Globulin Ratio 2.5 (1-3); Calcium 10.1 mg/dL (8.6-10.3); Creatinine, Serum 1.07 mg/dL (0.67-1.17); Globulin 1.9 g/dL (2-4); Potassium 4.6 mmol/L (3.5-5.0); Total Bilirubin 0.8 mg/dL (0.2-1.0); Total Protein 6.7 g/dL (6.4-8.9); eGFR CKD-EPI 69.3 (>60)
[2023-06-25 14:42] LABS: High Sensitivity Troponin 1 Hr 38 pg/mL (<20)
[2023-06-25] MEDS ORDERED: Polyethylene Glycol 3350 17 GM PACKET PO PRN (18:04)
[2023-06-25] MEDS ORDERED: Al Hydrox/Mg Hydrox/Simet LIQ 30 ML UDC PO PRN (18:04)
[2023-06-25] MEDS ORDERED: Albuterol HFA INHALER 8 gm MDI INH PRN (18:51)
[2023-06-25] MEDS ORDERED: Dextrose 50% Syringe 50 ml 25 GM/50 ML SYRINGE IV PUSH PRN (19:05)
[2023-06-25] MEDS ORDERED: Albuterol/Ipratropium NEB.SOL (2.5/0.5 MG) 3 ML NEB.SOLN INH PRN ×2 (19:40→20:06)
[2023-06-25 19:57] LABS: C Reactive Protein 12.67 mg/L (<8.01)
[2023-06-25] MEDS: Albuterol/Ipratropium NEB.SOL (2.5/0.5 MG) 3 ML NEB.SOLN INH SCH (20:18)
[2023-06-25] MEDS: methylPREDNISolone SOD SUCC 40 mg/ml 1 ml VIAL IV SCH (21:34)
[2023-06-25] MEDS: Insulin GLARGINE 100 un/ml 10 ml VIAL SUBCUT SCH (21:35)
[2023-06-26 05:34] LABS: ABS Lymphocytes 3.3 10^3/uL (1.0-4.8); ABS Monocytes 0.1 10^3/uL (0.0-1.1); ABS Neutrophils 5.7 10^3/uL (1.5-7.6); ABS Nucleated RBC 0.02 10^3/ul; Eosinophil % 0.1 %; Hematocrit 42.6 % (38-53); Hemoglobin 14.8 g/dL (13.2-16.3); Lymphocyte % 36.4 %; Mean Corpuscular Hemoglobin 34.3 pg (27-33); Mean Corpuscular Hgb Conc 34.8 g/dL (31-36); Mean Corpuscular Volume 98.5 fL (80-97); Mean Platelet Volume 8.2 fL (7.5-11.2); Nucleated Red Blood Cells % 0.3 %/100WBC (0.0-0.8); Platelet Count 170 10^3/uL (150-450); Red Blood Count 4.32 10^6/uL (4.06-5.63); Red Cell Distribution Width 13.8 % (12-17); White Blood Count 9.2 10^3/uL (3.6-10.2)
[2023-06-26 05:55] LABS: Albumin 4.2 g/dL (3.2-5.2); Albumin/Globulin Ratio 2.6 (1-3); Calcium 9.1 mg/dL (8.6-10.3); Creatinine, Serum 0.91 mg/dL (0.67-1.17); Globulin 1.6 g/dL (2-4); Magnesium 2.2 mg/dL (1.9-2.7); Potassium 4.5 mmol/L (3.5-5.0); Total Bilirubin 0.7 mg/dL (0.2-1.0); Total Protein 5.8 g/dL (6.4-8.9); eGFR CKD-EPI 84.1 (>60)
[2023-06-26] MEDS: CMCS: Pravastatin 20 mg TAB (NF) PO SCH (08:54)
[2023-06-26] MEDS: Albuterol/Ipratropium NEB.SOL (2.5/0.5 MG) 3 ML NEB.SOLN INH SCH (09:17)
[2023-06-26] MEDS: Enoxaparin 40 MG/0.4 ML SYR SUBCUT SCH (09:54)
[2023-06-26] MEDS ORDERED: Sulfur Hexaflouride MICROSPHR 25 MG VIAL ONE (16:30)
[2023-06-27 05:32] LABS: ABS Lymphocytes 4.1 10^3/uL (1.0-4.8); ABS Monocytes 0.2 10^3/uL (0.0-1.1); ABS Neutrophils 9.1 10^3/uL (1.5-7.6); ABS Nucleated RBC 0.02 10^3/ul; Hematocrit 40.8 % (38-53); Hemoglobin 14.1 g/dL (13.2-16.3); Lymphocyte % 30.4 %; Mean Corpuscular Hemoglobin 33.9 pg (27-33); Mean Corpuscular Hgb Conc 34.5 g/dL (31-36); Mean Corpuscular Volume 98.2 fL (80-97); Mean Platelet Volume 8.3 fL (7.5-11.2); Nucleated Red Blood Cells % 0.2 %/100WBC (0.0-0.8); Platelet Count 184 10^3/uL (150-450); Red Blood Count 4.15 10^6/uL (4.06-5.63); Red Cell Distribution Width 13.7 % (12-17); White Blood Count 13.5 10^3/uL (3.6-10.2)
[2023-06-27 06:06] LABS: Calcium 8.9 mg/dL (8.6-10.3); Creatinine, Serum 0.97 mg/dL (0.67-1.17); Magnesium 2.3 mg/dL (1.9-2.7); Potassium 4.3 mmol/L (3.5-5.0); eGFR CKD-EPI 77.9 (>60)
[2023-06-27 10:00] VITALS: BP 135/74
[2023-06-27] MEDS ORDERED: Insulin GLARGINE 100 un/ml 10 ml VIAL SUBCUT SCH (21:00)
== END 2023-06-27 14:08 | disposition home or self-care (01) ==
LOC: ED 11:39 → EDHOLD 11:39 → SUATTDRO 18:04 → MEDTELE 20:35
PROVIDERS: ADMIT Hospitalist; ATTEND Student in an Organized Health Care Education/Training Program